=== PATIENT | male | born 1950 | race Asian ===

== ENCOUNTER 2018-04-24 11:09 | Emergency (ER) | payer MEDICAID ==
[~2018-04-24] VITALS: Ht 170.2 cm; Wt 90.7 kg
[2018-04-24] MEDS ORDERED: IPRATRPIUM/ALBUTEROL 0.5/2.5MG 3 ML NEBU. ONE (12:35)
[2018-04-24] MEDS ORDERED: predniSONE 10 MG TABLET PO ONE (12:45)
[2018-04-24] MEDS ORDERED: IPRATRPIUM/ALBUTEROL 0.5/2.5MG 3 ML NEBU. NEB ONE (12:45)
[2018-04-24] MEDS ORDERED: ALBUTEROL SULFATE 2.5 MG/3 ML NEBU. CONT NEB ONE (12:45)
[2018-04-24 13:11] VITALS: BP 139/85
--- NOTE | 2018-04-24 13:15 | RAD ---
EXAM: Chest, 2 views. HISTORY: Shortness of air. COMPARISON: None. FINDINGS: Frontal and lateral views of the chest are obtained. There is no infiltrate, pleural effusion or pneumothorax. The heart is normal in size. There are slightly decreased lung volumes with associated basilar atelectasis. IMPRESSION: No acute pulmonary finding. Electronically signed by: Monserrat Angulo MD (04/24/2018 1:10 PM) [facility]
[2018-04-24] MEDS ORDERED: IV NORMAL SALINE 1000ML BAG 1,000 ML IV ONE (13:30)
--- NOTE | 2018-04-24 15:02 | EKG ---
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
[2018-04-24] MEDS ORDERED: AZIT250T PO (15:12)
[2018-04-24] MEDS ORDERED: PRED50TA PO (15:12)
[2018-04-24] MEDS ORDERED: PROAIR HFA8.5 GM INH (15:12)
--- NOTE | 2018-04-24 15:14 | PHYS DOC ---
Past Medical History Past Medical History: Asthma, Hypertension Past Surgical History: No Surgical History Alcohol Use: None Drug Use: None Adult General Chief Complaint Chief Complaint: SHORTNESS OF BREATH HPI HPI Patient is a 67 year old [f__sex] who presents with [] Review of Systems Review of Systems Constitutional: Denies fever or chills [] Eyes: Denies change in visual acuity, redness, or eye pain [] HENT: Denies nasal congestion or sore throat [] Respiratory: Denies cough or shortness of breath [] Cardiovascular: No additional information not addressed in HPI [] GI: Denies abdominal pain, nausea, vomiting, bloody stools or diarrhea [] : Denies dysuria or hematuria [] Musculoskeletal: Denies back pain or joint pain [] Integument: Denies rash or skin lesions [] Neurologic: Denies headache, focal weakness or sensory changes [] Endocrine: Denies polyuria or polydipsia [] All other systems were reviewed and found to be within normal limits, except as documented in this note. Current Medications Current Medications Current Medications Medications (Trade) Dose Ordered Sig/Bella Start Time Stop Time Status Last Admin Dose Admin Albuterol Sulfate (Ventolin Neb Soln) 10 mg 1X ONCE 04/24/18 12:45 04/24/18 12:46 DC 04/24/18 12:51 10 MG Albuterol/ Ipratropium (Duoneb) 3 ml STK-MED ONCE 04/24/18 12:35 04/24/18 12:36 DC Ceftriaxone Sodium 50 ml @ 100 mls/hr 1X ONCE 04/24/18 13:30 04/24/18 13:59 DC 04/24/18 13:45 100 MLS/HR Prednisone (Prednisone) 50 mg 1X ONCE 04/24/18 12:45 04/24/18 12:46 DC 04/24/18 12:41 50 MG Sodium Chloride 1,000 ml @ 1,000 mls/hr 1X ONCE 04/24/18 13:30 04/24/18 14:29 DC 04/24/18 13:46 1,000 MLS/HR Allergies Allergies Allergies Coded Allergies Type Severity Reaction Last Updated Verified Iodinated Contrast- Oral and IV Dye Allergy Intermediate 04/24/18 Yes Physical Exam Physical Exam Constitutional: Well developed, well nourished, no acute distress, non-toxic appearance. [] HENT: Normocephalic, atraumatic, bilateral external ears normal, oropharynx moist, no oral exudates, nose normal. [] Eyes: PERRLA, EOMI, conjunctiva normal, no discharge. [] Neck: Normal range of motion, no tenderness, supple, no stridor. [] Cardiovascular:Heart rate regular rhythm, no murmur [] Lungs & Thorax: Bilateral breath sounds clear to auscultation [] Abdomen: Bowel sounds normal, soft, no tenderness, no masses, no pulsatile masses. [] Skin: Warm, dry, no erythema, no rash. [] Back: No tenderness, no CVA tenderness. [] Extremities: No tenderness, no cyanosis, no clubbing, ROM intact, no edema. [] Neurologic: Alert and oriented X 3, normal motor function, normal sensory function, no focal deficits noted. [] Psychologic: Affect normal, judgement normal, mood normal. [] Current Patient Data Vital Signs Vital Signs Date Time Temp Pulse Resp B/P (MAP) Pulse Ox O2 Delivery O2 Flow Rate FiO2 04/24/18 12:53 Room Air 04/24/18 12:39 97 04/24/18 12:10 98.1 80 22 115/81 (92) 98.1 EKG EKG [] Radiology/Procedures Radiology/Procedures [] Course & Med Decision Making Course & Med Decision Making Pertinent Labs and Imaging studies reviewed. (See chart for details) [] Dragon Disclaimer Dragon Disclaimer This electronic medical record was generated, in whole or in part, using a voice recognition dictation system. Departure Departure Impression: Primary Impression: Pneumonia Additional Impression: Wheezing Disposition: 01 HOME, SELF-CARE Condition: STABLE Referrals: NO PCP (PCP) Patient Instructions: Pneumonia, Adult Additional Instructions: Take the medication as directed. Follow-up with your primary care provider for recheck in 3 days. If worsening return to the emergency department immediately or call 911. Scripts Albuterol Sulfate (PROAIR HFA INHALER) 8.5 Gm Hfa.aer.ad 1 PUFF INH PRN Q6HRS PRN for SHORTNESS OF BREATH, #1 INHALER 0 Refills Prov: NADINE CAMERON [employer] 04/24/18 Azithromycin (ZITHROMAX) 250 Mg Tablet 1 PKG PO UD, #1 PKG Prov: NADINE CAMERON APRN 04/24/18 Prednisone (PREDNISONE) 50 Mg Tablet 1 TAB PO DAILY, #5 TAB Prov: NADINE CAMERON APRN 04/24/18 Problem Qualifiers NADINE CAMERON APRN Apr 24, 2018 15:14
== END 2018-04-24 15:28 | disposition home or self-care (01) ==
LOC: ER 11:09
DX: J18.9 Pneumonia, unspecified organism (principal); R06.2 Wheezing; J45.909 Unspecified asthma, uncomplicated; I10 Essential (primary) hypertension; Z91.041 Radiographic dye allergy status
CPT/HCPCS: 71046; 93005; 94644; 96374; 99285; J0690; J7030; J7512; J7613; J7620; 94640

== ENCOUNTER 2018-04-30 18:05 | Emergency (ER) | payer MEDICAID ==
[~2018-04-30] VITALS: Ht 170.2 cm; Wt 90.7 kg
[~2018-04-30 18:05] MED LIST: AZIT250T PO; PRED50TA PO; PROAIR HFA8.5 GM INH
[2018-04-30] MEDS ORDERED: IPRATRPIUM/ALBUTEROL 0.5/2.5MG 3 ML NEBU. NEB ONE (18:30)
[2018-04-30] MEDS ORDERED: predniSONE 20 MG TABLET PO ONE (18:30)
--- NOTE | 2018-04-30 18:38 | PHYS DOC ---
Past Medical History Past Medical History: Asthma, Hypertension Past Surgical History: No Surgical History Alcohol Use: None Drug Use: None Adult General Chief Complaint Chief Complaint: SHORTNESS OF BREATH HPI HPI Patient is a 67 year old male who presents with dyspnea. The patient is known to have asthma. He presents to the ER today complaining of asthma attack and exacerbation. He has had been having worsening symptoms over the last 2-3 days. He has been using inhalers at home but has not had relief of his symptoms. He denies fever O he has had a chills and some mild generalized headaches. He does endorse a productive cough of green sputum over the same time. Review of Systems Review of Systems Constitutional: Denies fever Eyes: Denies change in visual acuity HENT: Denies nasal congestion or sore throat Respiratory: as documented above Cardiovascular: No additional information not addressed in HPI GI: Denies abdominal pain, nausea, vomiting : Denies dysuria or hematuria Musculoskeletal: Denies back pain Integument: Denies rash or skin lesions Neurologic: Denies headache, focal weakness Endocrine: Denies polyuria All other systems were reviewed and found to be within normal limits, except as documented in this note. Current Medications Current Medications Current Medications Medications (Trade) Dose Ordered Sig/Bella Start Time Stop Time Status Last Admin Dose Admin Albuterol Sulfate (Ventolin Neb Soln) 10 mg 1X ONCE 04/30/18 19:15 04/30/18 19:16 DC 04/30/18 19:24 10 MG Albuterol/ Ipratropium (Duoneb) 3 ml 1X ONCE 04/30/18 18:30 04/30/18 18:31 DC 04/30/18 18:37 3 ML Azithromycin (Zithromax) 500 mg 1X ONCE 04/30/18 21:00 04/30/18 21:01 DC 04/30/18 20:57 500 MG Prednisone (Prednisone) 60 mg 1X ONCE 04/30/18 18:30 04/30/18 18:31 DC 04/30/18 18:37 60 MG Allergies Allergies Allergies Coded Allergies Type Severity Reaction Last Updated Verified Iodinated Contrast- Oral and IV Dye Allergy Intermediate 04/24/18 Yes Physical Exam Physical Exam Constitutional: Well developed, well nourished, no acute distress, non-toxic appearance HENT: Normocephalic, atraumatic, bilateral external ears normal, oropharynx moist Eyes: PERRLA, EOMI, conjunctiva normal Neck: Normal range of motion, no tenderness Cardiovascular:Heart rate regular rhythm, no murmur Lungs & Thorax: wheezes bilaterally in all avery. no increase work of breathing. mildly prolonged expiratory phase Abdomen: Bowel sounds normal, soft, no tenderness Skin: Warm, dry, no erythema, no rash. Back: No tenderness Extremities: No tenderness, no edema Neurologic: Alert and oriented X 3 Psychologic: Affect normal Current Patient Data Vital Signs Vital Signs Date Time Temp Pulse Resp B/P (MAP) Pulse Ox O2 Delivery O2 Flow Rate FiO2 04/30/18 20:15 71 126/79 (95) 98 Room Air 04/30/18 18:23 97.8 22 97.8 EKG EKG [] Radiology/Procedures Radiology/Procedures No acute findings seen on CXR Course & Med Decision Making Course & Med Decision Making Pertinent Labs and Imaging studies reviewed. (See chart for details) 18:10: Patient is seen and examined. Overall well-appearing. Tx of asthma is ordered. 19:15: Continued wheezes but improved from admission. Hour-long albuterol nebulized treatment ordered. 20:45: Patient is now status post albuterol nebulized treatment for 1 hour. He is feeling much improved. His lungs are clear and he has good air movement. No increased work of breathing. Given that this is his second ER visit, and his subjective history that seems suspicious for pneumonia, the patient is given azithromycin in the ER. He will be discharged home on the same. He will be on prednisone as well for the next 5 days. He is also provided refills of his baseline blood pressure medications. Patient is new to the area and has not established a PCP yet. HCTZ 25. Losartan 100/HCTZ 12.5. Norvasc 10. 90-day supply is prescribed. Dragon Disclaimer Dragon Disclaimer This electronic medical record was generated, in whole or in part, using a voice recognition dictation system. Departure Departure Referrals: NO PCP (PCP) Scripts Losartan/Hydrochlorothiazide (LOSARTAN-HCTZ 100-12.5 MG TAB) 1 Each Tablet 1 TAB PO DAILY, #90 TAB 0 Refills Prov: WESTLEY RAMIREZ DO 04/30/18 Amlodipine Besylate (AMLODIPINE BESYLATE) 10 Mg Tablet 10 MG PO DAILY, #90 TAB Prov: WESTLEY RAMIREZ DO 04/30/18 Hydrochlorothiazide (HYDROCHLOROTHIAZIDE TABLET ) 25 Mg Tablet 1 TAB PO DAILY, #90 TAB 0 Refills Prov: WESTLEY RAMIREZ DO 04/30/18 Azithromycin (AZITHROMYCIN TABLET) 250 Mg Tablet 250 MG PO DAILY for ANTI-BIOTIC, #4 TAB 0 Refills Prov: WESTLEY RAMIREZ DO 04/30/18 Prednisone (PREDNISONE) 50 Mg Tablet 1 TAB PO DAILY, #5 TAB Prov: WESTLEY RAMIREZ DO 04/30/18 WESTLEY RAMIREZ DO Apr 30, 2018 18:38
[2018-04-30] MEDS ORDERED: ALBUTEROL SULFATE 2.5 MG/3 ML NEBU. CONT NEB ONE (19:15)
[2018-04-30 20:15] VITALS: BP 126/79
[2018-04-30] MEDS ORDERED: AZIT250T6 PO (20:53)
[2018-04-30] MEDS ORDERED: AMLO10TA2 PO (20:53)
[2018-04-30] MEDS ORDERED: PRED50TA PO (20:53)
[2018-04-30] MEDS ORDERED: HYDR25TA9 PO (20:53)
[2018-04-30] MEDS ORDERED: LOSA1TAB25 PO (20:53)
[2018-04-30] MEDS ORDERED: AZITHROMYCIN 250 MG TABLET. PO ONE (21:00)
--- NOTE | 2018-04-30 22:11 | RAD ---
PORTABLE CHEST 1V Clinical History: Dyspnea, Cough productive of green sputum Technique: AP view of the chest was obtained at 04/30/2018 6:17 PM. Comparison: April 24, 2018. Findings: The heart is borderline enlarged. The pulmonary vasculature is normal. There is patchy opacity in the left lung base. Impression: Left basal infiltrate likely pneumonia. Electronically signed by: Avi Flynn III, MD (04/30/2018 10:08 PM) [facility]
== END 2018-04-30 21:02 | disposition home or self-care (01) ==
LOC: ER 18:05
DX: J45.901 Unspecified asthma with (acute) exacerbation (principal); I10 Essential (primary) hypertension; Z91.041 Radiographic dye allergy status
CPT/HCPCS: 71045; 94644; 99285; J7512; J7613; J7620; Q0144; 94640

== ENCOUNTER 2018-05-20 01:31 | Emergency (ER) | payer MEDICAID ==
[~2018-05-20] VITALS: Ht 170.2 cm; Wt 89.4 kg
[~2018-05-20 01:31] MED LIST changes: +AMLO10TA6 PO; +AZIT250T6 PO; +HYDR25TA9 PO; +LOSA1TAB25 PO
[2018-05-20 02:11] LABS: BILIRUBIN,URINE NEGATIVE (NEG); CLARITY,URINE CLEAR; COLOR,URINE ORANGE; PH,URINE 6.5; PROTEIN,URINE NEGATIVE (NEG-TRACE); UROBILINOGEN,URINE 0.2 mg/dL (0.2 mg/dL)
[2018-05-20 02:25] LABS: BACTERIA,URINE 0 /HPF (0-FEW); NITRITE,URINE NEGATIVE (NEG); RBC,URINE 0 /HPF (0-2); SQUAMOUS EPITHELIAL CELL,UR OCC /LPF; WBC,URINE 0 /HPF (0-4)
[2018-05-20] MEDS ORDERED: ASPIRIN 325 MG TABLET PO ONE (03:30)
[2018-05-20] MEDS ORDERED: DEXAMETHASONE SOD PHOS 20 MG/5 ML VIAL. IV ONE (03:30)
[2018-05-20] MEDS ORDERED: IV NORMAL SALINE 1000ML BAG 1,000 ML IV ONE (03:30)
[2018-05-20] MEDS ORDERED: IPRATRPIUM/ALBUTEROL 0.5/2.5MG 3 ML NEBU. NEB ONE ×2 (03:30→04:30)
--- NOTE | 2018-05-20 03:31 | PHYS DOC ---
Past Medical History Past Medical History: Asthma, Hypertension, MD Past Surgical History: No Surgical History Additional Past Surgical Histo: PCI Smoking: Quit Greater Than 1 Year Alcohol Use: None Drug Use: None Adult General Chief Complaint Chief Complaint: URINARY FREQUENCY HPI HPI Patient is a 67 year old male with past medical history of MD, hypertension, and asthma who presents with a chief complaint of dysuria. Patient notes that he had acute onset dysuria and urinary frequency having to urinate every few minutes starting this afternoon. Patient denies any hematuria or urethral discharge. Patient notes he has had back and suprapubic pain since the onset of the dysuria as well. Patient also notes that he has had a cough for the last 3 or 4 days with associated midsternal chest pain. Patient notes that his chest pain has been intermittent with a moderate severity and he describes it as a "clamping pain " with radiation to the right side of his neck. Patient notes his pain is worse with coughing and breathing. Patient notes he has been short of breath especially when lying down. Patient denies diaphoresis nausea, vomiting. He has not taken anything for this cough or chest pain. Patient also notes that he has had a headache for the last 3 or 4 days with associated room spinning dizziness. Patient notes that he has had dizziness in the past and denies any different symptoms this time. Patient denies any falls recently. Review of Systems Review of Systems Constitutional: Denies fever or chills [] Eyes: Denies change in visual acuity, redness, or eye pain [] HENT: Denies nasal congestion or sore throat [] Respiratory: Notes cough and shortness of breath [] Cardiovascular: Notes chest pain, denies palpitations[] GI: Notes abdominal pain, nausea. Denies vomiting, bloody stools or diarrhea [] : Notes dysuria, denies hematuria [] Musculoskeletal: Notes back pain, denies joint pain [] Integument: Denies rash or skin lesions [] Neurologic: Notes headache Denies focal weakness or sensory changes [] Complete systems were reviewed and found to be within normal limits, except as documented in this note. Current Medications Current Medications Current Medications Medications (Trade) Dose Ordered Sig/Bella Start Time Stop Time Status Last Admin Dose Admin Albuterol/ Ipratropium (Duoneb) 3 ml 1X ONCE 05/20/18 04:30 05/20/18 04:31 DC 05/20/18 04:17 3 ML Aspirin (Yonis Aspirin) 325 mg 1X ONCE 05/20/18 03:30 05/20/18 03:31 DC 05/20/18 04:07 325 MG Dexamethasone Sodium Phosphate (Decadron) 10 mg 1X ONCE 05/20/18 03:30 05/20/18 03:31 DC 05/20/18 04:08 10 MG Sodium Chloride 1,000 ml @ 1,000 mls/hr 1X ONCE 05/20/18 03:30 05/20/18 04:29 DC 05/20/18 04:09 1,000 MLS/HR Allergies Allergies Allergies Coded Allergies Type Severity Reaction Last Updated Verified Iodinated Contrast- Oral and IV Dye Allergy Intermediate 04/24/18 Yes Physical Exam Physical Exam Constitutional: Well developed, well nourished, no acute distress, non-toxic appearance. [] HENT: Normocephalic, atraumatic, oropharynx moist, no oral exudates, nose normal. [] Eyes: PERRL, EOMI, conjunctiva normal, no discharge. [] Neck: Normal range of motion, R lateral tenderness, supple, no meningismus. [] Cardiovascular: Heart rate regular rhythm, no murmur [] Lungs & Thorax: Bilateral diffuse wheezes, decreased air movement.[] Abdomen: Soft, nondistended RLQ, LLQ, and suprapubic tenderness to palpation. [ ] Skin: Warm, dry, no erythema, no rash. [] Back: Bilateral CVA tenderness worse on the left. Full ROM[] Extremities: No tenderness, ROM intact, no edema. [] Neurologic: Alert and oriented X 3, normal motor function, normal sensory function, no focal deficits noted. [] Psychologic: Affect normal, judgement normal, mood normal. [] Current Patient Data Vital Signs Vital Signs Date Time Temp Pulse Resp B/P (MAP) Pulse Ox O2 Delivery O2 Flow Rate FiO2 05/20/18 06:15 80 20 110/70 (83) 97 Room Air 05/20/18 01:55 97.7 97.7 Lab Values Laboratory Tests Test 05/20/18 01:53 05/20/18 04:00 Urine Collection Type Unknown Urine Color [place] Urine Clarity Clear Urine pH 6.5 Urine Specific [place] <=1.005 Urine Protein Negative mg/dL (NEG-TRACE) Urine Glucose (UA) Negative mg/dL (NEG) Urine Ketones (Stick) Negative mg/dL (NEG) Urine Blood Negative (NEG) Urine Nitrite Negative (NEG) Urine Bilirubin Negative (NEG) Urine Urobilinogen Dipstick 0.2 mg/dL (0.2 mg/dL) Urine Leukocyte Esterase Negative (NEG) Urine RBC 0 /HPF (0-2) Urine WBC 0 /HPF (0-4) Urine Squamous Epithelial Cells Occ /LPF Urine Bacteria 0 /HPF (0-FEW) White Blood Count 7.1 x10^3/uL (4.0-11.0) Red Blood Count 5.87 x10^6/uL (4.30-5.70) H Hemoglobin 16.2 g/dL (13.0-17.5) Hematocrit 46.5 % (39.0-53.0) Mean Corpuscular Volume 79 fL (79-100) Mean Corpuscular Hemoglobin 28 pg (25-35) Mean Corpuscular Hemoglobin Concent 35 g/dL (31-37) Red Cell Distribution Width 14.9 % (11.5-14.5) H Platelet Count 191 x10^3/uL (140-400) Neutrophils (%) (Auto) 58 % (31-73) Lymphocytes (%) (Auto) 24 % (24-48) Monocytes (%) (Auto) 10 % (0-9) H Eosinophils (%) (Auto) 7 % (0-3) H Basophils (%) (Auto) 1 % (0-3) Neutrophils # (Auto) 4.1 x10^3uL (1.8-7.7) Lymphocytes # (Auto) 1.7 x10^3/uL (1.0-4.8) Monocytes # (Auto) 0.7 x10^3/uL (0.0-1.1) Eosinophils # (Auto) 0.5 x10^3/uL (0.0-0.7) Basophils # (Auto) 0.0 x10^3/uL (0.0-0.2) Prothrombin Time 13.2 SEC (11.7-14.0) Prothrombin Time INR 1.1 (0.8-1.1) Sodium Level 137 mmol/L (136-145) Potassium Level 3.2 mmol/L (3.5-5.1) L Chloride Level 98 mmol/L (98-107) Carbon Dioxide Level 30 mmol/L (21-32) Anion Gap 9 (6-14) Blood Urea Nitrogen 10 mg/dL (8-26) Creatinine 1.2 mg/dL (0.7-1.3) Estimated GFR (Cockcroft-Gault) 60.4 BUN/Creatinine Ratio 8 (6-20) Glucose Level 115 mg/dL (70-99) H Lactic Acid Level 0.9 mmol/L (0.4-2.0) Calcium Level 9.8 mg/dL (8.5-10.1) Magnesium Level 2.0 mg/dL (1.8-2.4) Total Bilirubin 2.2 mg/dL (0.2-1.0) H Aspartate Amino Transferase (AST) 20 U/L (15-37) Alanine Aminotransferase (ALT) 46 U/L (16-63) Alkaline Phosphatase 104 U/L (46-116) Creatine Kinase 151 U/L (39-308) Creatine Kinase MB (Mass) 1.6 ng/mL (0.0-3.6) Creatine Kinase MB Relative Index 1.1 % (0-4) Troponin I Quantitative < 0.017 ng/mL (0.000-0.055) AW-Zhc-[id number]-Type Natriuretic Peptide 29 pg/mL (0-124) Total Protein 7.4 g/dL (6.4-8.2) Albumin 4.0 g/dL (3.4-5.0) Albumin/Globulin Ratio 1.2 (1.0-1.7) Lipase 101 U/L (73-393) Laboratory Tests 05/20/18 04:00 Laboratory Tests 05/20/18 04:00 EKG EKG Sinus rhythm, rate 87, leftward axis, QRS 94 ms, QTc 458. No acute ischemic changes, T wave inversions in lead III, aVF[] Interpretation Time: 0350 Radiology/Procedures Radiology/Procedures PROCEDURE: CT HEAD WO CONTRAST INDICATION: dizziness COMPARISON: None. TECHNIQUE: Axial CT images obtained through the head without intravenous contrast. One or more of the following individualized dose reduction techniques were utilized for this examination: 1. Automated exposure control; 2. Adjustment of the mA and/or kV according to patient size; 3. Use of iterative reconstruction technique. FINDINGS: No intracranial hemorrhage. No midline shift. Basal cisterns patent. Ventricles and sulci are unremarkable. No acute osseous abnormality. Orbits and paranasal sinuses unremarkable. IMPRESSION: 1. No acute intracranial hemorrhage. Electronically signed by: Edmundo Graff MD (05/20/2018 4:14 AM) [place] [id number] PROCEDURE: CT CHEST ABDOMEN PELVIS WO INDICATION: cough, wheezing, flank pain COMPARISON: None. TECHNIQUE: Axial CT images obtained through the chest, abdomen and pelvis without contrast. Limited assessment of solid organ structures and vasculature secondary to lack of intravenous contrast. One or more of the following individualized dose reduction techniques were utilized for this examination: 1. Automated exposure control; 2. Adjustment of the mA and/or kV according to patient size; 3. Use of iterative reconstruction technique. FINDINGS: Chest: No evidence of pneumothorax. Mild dependent atelectasis. Cannot evaluate the lumen of the thoracic aorta secondary to no contrast. There is some calcific atherosclerosis. Ascending thoracic aorta is dilated up to 46 mm. Degenerative changes of the spine. Chronic sternal defect. Abdomen and pelvis: Abdominal aorta is not aneurysmal. There is some scattered plaque. Bilateral fat-containing small inguinal hernia suspected. There are some mildly prominent lymph nodes in the right greater than left groin. No intrahepatic bile duct dilation. No peripancreatic fluid collection. Suspected duodenal diverticulum. Spleen unremarkable. Urinary bladder is distended. No hydronephrosis. No definite periappendiceal inflammation. Degenerative changes of spine with multilevel central canal and neural foraminal stenosis. IMPRESSION: 1. The urinary bladder is dilated at the time of exam. This could be from the patient not urinating recently but would correlate to ensure that this is not secondary to a bladder outlet obstruction. 2. Aneurysmal dilatation of the ascending thoracic aorta. 3. 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 Course & Med Decision Making Course & Med Decision Making Pertinent Labs and Imaging studies reviewed. (See chart for details) Patient presents with multiple complaints including increased wheezing/chest discomfort/shortness of breath, abdominal/flank pain, and headache. Patient with significant wheezing on auscultation. EKG stable. Troponin WNL. CT chest without acute process. Patient's symptoms most likely secondary to asthma exacerbation as a significantly improved after DuoNeb's and steroid. Patient also with abdominal/flank pain. Labs appears WNL. UA without signs of infection. CT abd/pelvis with significantly distended bladder which was post void. Urinary cath placed with interval improvement of symptoms. RN reports approx 1 liter of urine retained. CT also with incidental aneurysmal dilatation noted. Lastly, patient also with complaint of headache. CT head without acute process. Symptomatic treatment provided during ED stay with interval improvement of symptoms. Patient stable for discharge with outpatient follow-up with PCP and urologist. Urology referral provided. Discussed findings and plan with patient and family, who acknowledge understanding and agreement. Dragon Disclaimer Dragon Disclaimer This electronic medical record was generated, in whole or in part, using a voice recognition dictation system. Departure Departure Impression: Primary Impression: Urinary retention Additional Impressions: Asthma exacerbation Headache Disposition: HOME, SELF-CARE Condition: IMPROVED Referrals: NO PCP (PCP) CARLYN LEE MD Patient Instructions: Asthma, Adult, [id number], Kat Catheter Care, Adult, Urinary Retention, Acute, Male, [id number] Scripts Prednisone (PREDNISONE) 20 Mg Tablet 2 TAB PO DAILY, #8 TAB Prov: KENNY IVAN DO 05/20/18 Tamsulosin Hcl (FLOMAX) 0.4 Mg Cap.er.24h 1 CAP PO DAILY, #3020 CAP 0 Refills Prov: KENNY IVAN DO 05/20/18 Problem Qualifiers Additional Impressions: Asthma exacerbation Asthma severity: mild Asthma persistence: unspecified Qualified Codes: J45.901 - Unspecified asthma with (acute) exacerbation Headache Headache type: unspecified Headache chronicity pattern: unspecified pattern Intractability: not intractable Qualified Codes: R51 - Headache KENNY IVAN DO May 20, 2018 03:31
--- NOTE | 2018-05-20 04:18 | RAD ---
INDICATION: dizziness COMPARISON: None. TECHNIQUE: Axial CT images obtained through the head without intravenous contrast. One or more of the following individualized dose reduction techniques were utilized for this examination: 1. Automated exposure control; 2. Adjustment of the mA and/or kV according to patient size; 3. Use of iterative reconstruction technique. FINDINGS: No intracranial hemorrhage. No midline shift. Basal cisterns patent. Ventricles and sulci are unremarkable. No acute osseous abnormality. Orbits and paranasal sinuses unremarkable. IMPRESSION: 1. No acute intracranial hemorrhage. Electronically signed by: Edmundo Graff MD (05/20/2018 4:14 AM) [facility]
[2018-05-20 04:23] LABS: BASO % 1 % (0-3); EOS # 0.5 x10^3/uL (0.0-0.7); EOS % 7 % (0-3); HEMATOCRIT 46.5 % (39.0-53.0); HEMOGLOBIN 16.2 g/dL (13.0-17.5); LYMPH # 1.7 x10^3/uL (1.0-4.8); LYMPH % 24 % (24-48); MEAN CORPUSCULAR HEMOGLOBIN 28 pg (25-35); MEAN CORPUSCULAR HGB CONC 35 g/dL (31-37); MEAN CORPUSCULAR VOLUME 79 fL (79-100); MONO # 0.7 x10^3/uL (0.0-1.1); MONO % 10 % (0-9); NEUT # 4.1 x10^3uL (1.8-7.7); NEUT % 58 % (31-73); PLATELET COUNT 191 x10^3/uL (140-400); PROTHROMBIN TIME PATIENT 13.2 SEC (11.7-14.0); RED BLOOD COUNT 5.87 x10^6/uL (4.30-5.70); RED CELL DISTRIBUTION WIDTH 14.9 % (11.5-14.5); WHITE BLOOD COUNT 7.1 x10^3/uL (4.0-11.0)
[2018-05-20 04:27] LABS: CALCIUM 9.8 mg/dL (8.5-10.1); CREATININE 1.2 mg/dL (0.7-1.3); GFR 60.4; POTASSIUM 3.2 mmol/L (3.5-5.1)
[2018-05-20 04:32] LABS: ALBUMIN/GLOBULIN RATIO 1.2 (1.0-1.7); TOTAL BILIRUBIN 2.2 mg/dL (0.2-1.0); TOTAL PROTEIN 7.4 g/dL (6.4-8.2)
--- NOTE | 2018-05-20 04:41 | RAD ---
INDICATION: cough, wheezing, flank pain COMPARISON: None. TECHNIQUE: Axial CT images obtained through the chest, abdomen and pelvis without contrast. Limited assessment of solid organ structures and vasculature secondary to lack of intravenous contrast. One or more of the following individualized dose reduction techniques were utilized for this examination: 1. Automated exposure control; 2. Adjustment of the mA and/or kV according to patient size; 3. Use of iterative reconstruction technique. FINDINGS: Chest: No evidence of pneumothorax. Mild dependent atelectasis. Cannot evaluate the lumen of the thoracic aorta secondary to no contrast. There is some calcific atherosclerosis. Ascending thoracic aorta is dilated up to 46 mm. Degenerative changes of the spine. Chronic sternal defect. Abdomen and pelvis: Abdominal aorta is not aneurysmal. There is some scattered plaque. Bilateral fat-containing small inguinal hernia suspected. There are some mildly prominent lymph nodes in the right greater than left groin. No intrahepatic bile duct dilation. No peripancreatic fluid collection. Suspected duodenal diverticulum. Spleen unremarkable. Urinary bladder is distended. No hydronephrosis. No definite periappendiceal inflammation. Degenerative changes of spine with multilevel central canal and neural foraminal stenosis. IMPRESSION: 1. The urinary bladder is dilated at the time of exam. This could be from the patient not urinating recently but would correlate to ensure that this is not secondary to a bladder outlet obstruction. 2. Aneurysmal dilatation of the ascending thoracic aorta. 3. 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
[2018-05-20] MEDS ORDERED: PRED20TA PO (05:28)
[2018-05-20] MEDS ORDERED: TAMS0.4C97 PO (05:28)
[2018-05-20 06:15] VITALS: BP 110/70
--- NOTE | 2018-05-20 07:19 | EKG ---
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
== END 2018-05-20 06:51 | disposition home or self-care (01) ==
LOC: ER 01:31
DX: R33.9 Retention of urine, unspecified (principal); J45.901 Unspecified asthma with (acute) exacerbation; I10 Essential (primary) hypertension; I25.2 Old myocardial infarction; Z87.891 Personal history of nicotine dependence; Z91.041 Radiographic dye allergy status
CPT/HCPCS: 36415; 51702; 70450; 71250; 74176; 80053; 81001; 82553; 83605; 83690; 83735; 83880; 84484; 85025; 85610; 93005; 94640; 96361; 96374; 99285; J1100; J7030; J7620

== ENCOUNTER 2018-05-25 10:06 | Emergency (ER) | payer MEDICAID ==
[~2018-05-25] VITALS: Ht 170.2 cm; Wt 87.5 kg
[~2018-05-25 10:06] MED LIST changes: +PRED20TA PO; +TAMS0.4C97 PO
[2018-05-25 10:33] VITALS: BP 122/81
--- NOTE | 2018-05-25 10:49 | PHYS DOC ---
Past Medical History Past Medical History: Asthma, Hypertension, [place] Past Surgical History: No Surgical History Additional Past Surgical Histo: PCI Alcohol Use: None Drug Use: None Adult General Chief Complaint Chief Complaint: CATHETER CHANGE [facility] HPI Patient is a 67 year old male with history of hypertension, asthma, [place], who presents today asking if we can remove his Otoole catheter. Patient states the Otoole catheter was placed 5 days ago for urinary retention. He states they've followed up with his PCP who requested them to see a urologist but never gave him a contact number. Patient denies any other symptoms. Review of Systems Review of Systems Constitutional: Denies fever or chills [] Eyes: Denies change in visual acuity, redness, or eye pain [] HENT: Denies nasal congestion or sore throat [] Respiratory: Denies cough or shortness of breath [] Cardiovascular: No additional information not addressed in HPI [] GI: Denies abdominal pain, nausea, vomiting, bloody stools or diarrhea [] : Request for Otoole removal. Denies dysuria or hematuria [] Musculoskeletal: Denies back pain or joint pain [] Integument: Denies rash or skin lesions [] Neurologic: Denies headache, focal weakness or sensory changes [] All other systems were reviewed and found to be within normal limits, except as documented in this note. Allergies Allergies Allergies Coded Allergies Type Severity Reaction Last Updated Verified Iodinated Contrast- Oral and IV Dye Allergy Intermediate 04/24/18 Yes Physical Exam Physical Exam Constitutional: Well developed, well nourished, no acute distress, non-toxic appearance. [] HENT: Normocephalic, atraumatic, bilateral external ears normal, oropharynx moist, no oral exudates, nose normal. [] Eyes: PERRLA, EOMI, conjunctiva normal, no discharge. [] Neck: Normal range of motion, no tenderness, supple, no stridor. [] Cardiovascular:Heart rate regular rhythm, no murmur [] Lungs & Thorax: Bilateral breath sounds clear to auscultation [] Abdomen: Bowel sounds normal, soft, no tenderness, no masses, no pulsatile masses. [] Male -otoole in place with leg bag with clear urine. Skin: Warm, dry, no erythema, no rash. [] Back: No tenderness, no CVA tenderness. [] Extremities: No tenderness, no cyanosis, no clubbing, ROM intact, no edema. [] Neurologic: Alert and oriented X 3, normal motor function, normal sensory function, no focal deficits noted. [] Psychologic: Affect normal, judgement normal, mood normal. [] EKG EKG [] Radiology/Procedures Radiology/Procedures [] Course & Med Decision Making Course & Med Decision Making Pertinent Labs and Imaging studies reviewed. (See chart for details) This is a 67-year-old male patient presenting to the ED today requesting his Otoole catheter to be removed, he had the Otoole placed in 5 days ago for urinary retention. Patient was seen by the PCP today, was instructed to follow-up with a urologist provided but he was not provided contact information. Spoke to patient and family. Provided them a urologist contact number, requested them to follow-up with the urologist as soon as he can. He is already on Flomax. He has no other complaints. Dragon Disclaimer Dragon Disclaimer This electronic medical record was generated, in whole or in part, using a voice recognition dictation system. Departure Departure Impression: Primary Impression: Urinary retention Disposition: 01 HOME, SELF-CARE Condition: STABLE Referrals: NO PCP (PCP) CARLYN LEE MD Call his office today and set up a follow up appointment. Patient Instructions: Otoole Catheter Care, Adult, Urinary Retention, Acute, Male Additional Instructions: You were evaluated in the emergency room. We request you contact the provided urologist today and set up a follow-up appointment as an outpatient and they will decide if to remove the Otoole catheter DADA QUIGLEY APRN May 25, 2018 10:49
== END 2018-05-25 10:56 | disposition home or self-care (01) ==
LOC: ER 10:06
DX: R33.9 Retention of urine, unspecified (principal); J45.909 Unspecified asthma, uncomplicated; I10 Essential (primary) hypertension; Z91.041 Radiographic dye allergy status
CPT/HCPCS: 99281

== ENCOUNTER → 2018-06-13 | Outpatient (CLI) | payer OTHER ==
[2018-05-25 10:33] VITALS: BP 122/81
--- NOTE | 2018-06-13 15:34 | RAD ---
Chest, 2 views, 06/13/2018: HISTORY: Chest pain Comparison is made to a study from 04/30/2018. The heart size and pulmonary vascularity are normal. No pulmonary infiltrate is seen. There is no evidence of pleural fluid. IMPRESSION: No acute cardiopulmonary abnormality is detected. Electronically signed by: Arik Blela MD (06/13/2018 3:31 PM) [facility]
== END | disposition home or self-care (01) ==
LOC: RAD 10:48
PROVIDERS: ATTEND Internal Medicine Cardiovascular Disease
DX: R07.9 Chest pain, unspecified (principal)
CPT/HCPCS: 71046

== ENCOUNTER → 2018-06-30 | Outpatient (CLI) | payer MEDICAID, OTHER ==
--- NOTE | 2018-06-30 10:24 | CARD ---
MR#: [id number] Date of Study: 06/30/2018 Ordering Physician: GRACIELA KEARNS, Referring Physician: GRACIELA KEARNS, Tech: Sophie Kruger RDCS APPROVED REPORT EXAM: Two-dimensional and M-mode echocardiogram with Doppler and color Doppler. Other Information Quality : Good INDICATION Murmur 2D DIMENSIONS RVDd3.5 (2.9-3.5cm)Left Atrium(2D)3.5 (1.6-4.0cm) IVSd1.1 (0.7-1.1cm)Aortic Root(2D)3.5 (2.0-3.7cm) LVDd4.5 (3.9-5.9cm)LVOT Diameter2.6 (1.8-2.4cm) PWd1.1 (0.7-1.1cm)LVDs2.7 (2.5-4.0cm) FS (%) 39.3 %SV65.4 ml LVEF(%)60.0 (>50%) Aortic Valve AoV Peak Nitin.110.8cm/sAoV VTI20.3cm AO Peak GR.4.9mmHgLVOT Peak Nitin.98.6cm/s LVOT VTI 17.79cmAO Mean GR.2mmHg JODI (VMAX)4.35ks8SIW (VTI)4.71cm2 AI P 1/2 Jzkx1346xg Mitral Valve MV E Htgyulsc16.1cm/sMV DECEL DPSP960ct MV A Rylyvopz67.3cm/sMV CDI37bc E/A Ratio0.6MVA (PHT)2.89cm2 TDI E/Lateral E'17.6E/Medial E'20.4 Tricuspid Valve TR P. Yfvxausr130xg/sRAP TPVLZNWY3vxFa TR Peak Gr.46hxCsPNEH33huGd Pulmonary Vein S1 Ehibryal40.8cm/sD2 Lcfzvsnl65.3cm/s LEFT VENTRICLE The left ventricle is normal size. There is normal left ventricular wall thickness. The left ventricu lar systolic function is normal and the ejection fraction is within normal range. The Ejection Fracti on is 55-60%. There is normal LV segmental wall motion. Transmitral Doppler flow pattern is Grade I-a bnormal relaxation pattern. RIGHT VENTRICLE The right ventricle is normal size. The right ventricular systolic function is normal. ATRIA The left atrium size is normal. The right atrium size is normal. The interatrial septum is intact wit h no evidence for an atrial septal defect or patent foramen ovale as noted on 2-D or Doppler imaging. AORTIC VALVE The aortic valve is calcified but opens well. Doppler and Color Flow revealed mild aortic regurgitati on. There is no significant aortic valvular stenosis. MITRAL VALVE The mitral valve is calcified but opens well. There is no evidence of mitral valve prolapse. There is no mitral valve stenosis. Doppler and Color-flow revealed trace mitral regurgitation. TRICUSPID VALVE The tricuspid valve is normal in structure and function. The PA pressure was estimated at 22 mmHg. Do ppler and Color Flow revealed trace tricuspid regurgitation. There is no tricuspid valve stenosis. PULMONIC VALVE The pulmonic valve is not well visualized. Doppler and Color Flow revealed trace pulmonic valvular re gurgitation. There is no pulmonic valvular stenosis. GREAT VESSELS The aortic root is mildly at 3.5 cm. The ascending aorta is moderately dilated at 4.2 cm. The IVC is normal in size and collapses >50% with inspiration. PERICARDIAL EFFUSION There is no evidence of significant pericardial effusion. Critical Notification Critical Value: No <Conclusion> The left ventricle is normal size. The left ventricular systolic function is normal and the ejection fraction is within normal range. The Ejection Fraction is 55-60%. There is no significant aortic valvular stenosis. Doppler and Color Flow revealed mild aortic regurgitation. Doppler and Color-flow revealed trace mitral regurgitation. The PA pressure was estimated at 22 mmHg. Doppler and Color Flow revealed trace tricuspid regurgitation. The aortic root is mildly at 3.5 cm. The ascending aorta is moderately dilated at 4.2 cm. Signed by : Graciela Kearns MD Electronically Approved : 06/30/2018 10:24:04
== END | disposition home or self-care (01) ==
LOC: ECHO 09:01
PROVIDERS: ATTEND Internal Medicine Cardiovascular Disease
DX: I35.1 Nonrheumatic aortic (valve) insufficiency (principal)
CPT/HCPCS: 93306

== ENCOUNTER → 2018-07-05 | Outpatient (CLI) | payer OTHER ==
[~2018-07-05] MED LIST changes: +REGADENOSON 0.4 MG/5 ML DISP.SYRIN. IV ONE
--- NOTE | 2018-07-05 11:47 | RAD ---
MR#: [id number] Date of Study: 07/05/2018 Ordering Physician: JEFF HECTOR, Referring Physician: VINEET SCALES Tech: Arcadio Lee NMTCB, ARRT (R) (N) APPROVED REPORT Test Type: Pharmacological Stress Nurse/Tech: Shauna Jimenez RN Test Indications: CAD Cardiac History: Hypertension, [place] x2 Medications: See Electronic Medical Record Medical History: See Electronic Medical Record Resting ECG: SR Resting Heart Rate: 77 bpm Resting Blood Pressure: 103/71mmHg Pretest Chest Pain: No chest pain Nurse/Tech Notes S1,S2. Lungs are clear to auscultation. Consent: The procedure was explained to the patient in lay terms. Informed consent was witnessed. Felipe eout was entered into [employer]. History and Stress Test performed by RAFAEL Lee Pharm. Details Pharmacologic stress testing was performed using 0.4mg per 5ml of regadenoson given intravenously ove r 7-10 seconds. Stress Symptoms Dyspnea POST EXERCISE Reason for Termination: Infusion complete Target HR: No Max HR: 128 bpm Max Blood Pressure: 107/72mmHg Blood Pressure response to exercise: Normal blood pressure response during stress. Heart Rate response to exercise: WNL Chest Pain: No. Arrhythmia: No. ST Change: No. INTERPRETATION Stress EKG Conclusion: No evidence of stress induced EKG changes. Imaging Protocol IMAGE PROTOCOL: Rest Tc-99m/stress Tc-99m 1 day Rest: Stress: Viability: Radiopharm.Tc99m CqehomncdUi67g Sestamibi Dose12.5mCi 33.1mCi Duration 15min. 13min. Img Date 07/05/2018 07/05/2018 Inj-Img Blgu57cng. 60min. Rest Admin Site:IV - Right AntecubitalAdministrator:RT Yamel (R)(N) Stress Admin Site: IV - Right AntecubitalAdministrator: ADRIANE Chavez, ARRT (R)(N) STRESS DATA End Diast. Vol.78.0mlLVEDV index BSA39.0ml End Syst. Vol.34.0mlLVESV index BSA17.0ml Myocardial Gusv098.0gEject. Rpnvqumi15.0% Stress Scores Regional WT1.00Summed WT10.00 Regional WM1.00Summed WM17.00 The rest and stress images show normal perfusion, normal contraction and thickening. LV Perf. Quant 17 Seg. SSS0.00 17 Seg. SRS1.00 17 Seg. SDS0.00 Stress Defect Extent (% LAD)0.00Rest Defect Extent (% LAD)0.00Rev. Defect Extent (% LAD)0.00 Stress Defect Extent (% LCX) 0.00Rest Defect Extent (% LCX)0.00Rev. Defect Extent (% LCX)0.00 Stress Defect Extent (% RCA)0.00Rest Defect Extent (% RCA)0.00Rev. Defect Extent (% RCA)0.00 Stress Defect Extent (% COCO)0.00Rest Defect Extent (% COCO)0.00Rev. Defect Extent (% COCO)0.00 Other Information Quality:Good Risk Assessment: Low Risk Conclusion 1. No evidence of EKG changes with stress testing. 2. Normal perfusion at stress/rest. 3. Low risk study. 4. EF > 60%. Signed by : Paulo Fuentes, Electronically Approved : 07/05/2018 11:47:07
== END | disposition home or self-care (01) ==
LOC: NM 07:45
PROVIDERS: ATTEND Nurse Practitioner
DX: I25.709 Atherosclerosis of coronary artery bypass graft(s), unspecified, with unspecified angina pectoris (principal); I10 Essential (primary) hypertension; I25.2 Old myocardial infarction
CPT/HCPCS: 78452; 93017; 96374; 96375; 96376; A9500; J2785

== ENCOUNTER 2018-09-12 17:03 | Emergency (ER) | payer OTHER ==
[~2018-09-12] VITALS: Ht 175.3 cm; Wt 89.4 kg
[~2018-09-12 17:03] MED LIST changes: +ALBU2.5V8 INH; +HYDR-2145 PO; -HYDR25TA9 PO; +NAPR-514 PO; +ORPH100T PO; -PROAIR HFA8.5 GM INH; -REGADENOSON 0.4 MG/5 ML DISP.SYRIN. IV ONE
[2018-09-12] MEDS ORDERED: ALBUTEROL SULFATE 2.5 MG/3 ML NEBU. CONT NEB ONE (20:00)
[2018-09-12] MEDS ORDERED: predniSONE 10 MG TABLET PO ONE (20:00)
[2018-09-12] MEDS ORDERED: IPRATROPIUM BROMIDE 0.5 MG/2.5 ML NEBU. NEB ONE (20:00)
[2018-09-12 20:11] LABS: BASO % 0 % (0-3); EOS # 0.6 x10^3/uL (0.0-0.7); EOS % 12 % (0-3); HEMATOCRIT 42.1 % (39.0-53.0); HEMOGLOBIN 14.7 g/dL (13.0-17.5); LYMPH # 0.9 x10^3/uL (1.0-4.8); LYMPH % 17 % (24-48); MEAN CORPUSCULAR HEMOGLOBIN 28 pg (25-35); MEAN CORPUSCULAR HGB CONC 35 g/dL (31-37); MEAN CORPUSCULAR VOLUME 80 fL (79-100); MONO # 0.6 x10^3/uL (0.0-1.1); MONO % 11 % (0-9); NEUT # 3.2 x10^3uL (1.8-7.7); NEUT % 60 % (31-73); PLATELET COUNT 193 x10^3/uL (140-400); RED BLOOD COUNT 5.25 x10^6/uL (4.30-5.70); RED CELL DISTRIBUTION WIDTH 14.3 % (11.5-14.5); WHITE BLOOD COUNT 5.3 x10^3/uL (4.0-11.0)
[2018-09-12 20:12] LABS: BILIRUBIN,URINE NEGATIVE (NEG); CLARITY,URINE CLEAR; COLOR,URINE YELLOW; NITRITE,URINE NEGATIVE (NEG); PROTEIN,URINE NEGATIVE (NEG-TRACE)
[2018-09-12 20:25] LABS: BACTERIA,URINE 0 /HPF (0-FEW); RBC,URINE 0 /HPF (0-2); SQUAMOUS EPITHELIAL CELL,UR OCC /LPF; WBC,URINE 0 /HPF (0-4)
[2018-09-12 20:28] LABS: CALCIUM 9.4 mg/dL (8.5-10.1); CREATININE 1.2 mg/dL (0.7-1.3); GFR 60.4; POTASSIUM 3.3 mmol/L (3.5-5.1)
[2018-09-12 20:35] LABS: ALBUMIN 3.7 g/dL (3.4-5.0); TOTAL BILIRUBIN 1.5 mg/dL (0.2-1.0); TOTAL PROTEIN 7.5 g/dL (6.4-8.2)
[2018-09-12] MEDS ORDERED: CEPH-264 PO (21:28)
[2018-09-12] MEDS ORDERED: PRED50TA PO (21:28)
[2018-09-12 22:10] VITALS: BP 107/76
--- NOTE | 2018-09-13 00:14 | RAD ---
Examination: CHEST AP ONLY History: Chest pain today Comparison/Correlation: 06/13/2018 two-view chest x-ray exam Findings: Portable upright frontal view of the chest was obtained. Heart size and pulmonary vasculature are normal. No infiltrate or effusion. No pneumothorax. Bony structures are unremarkable. Impression: No active disease. Electronically signed by: Kane Curtis MD (09/13/2018 12:10 AM) [facility]
--- NOTE | 2018-09-13 04:53 | PHYS DOC ---
Past Medical History Past Medical History: Asthma, Hypertension, [place] Past Surgical History: No Surgical History, Other Additional Past Surgical Histo: PCI Alcohol Use: Occasionally Drug Use: None Adult General Chief Complaint Chief Complaint: ABDOMINAL PAIN HPI HPI Patient is a 67 year old [place] male with history of asthma who presents with nonproductive cough, chest tightness with wheezing and abdominal pain worse with coughing and deep breathing. Symptom onset was 3 days ago. No fever chills , nausea vomiting or sweats. No diarrhea, constipation, urinary frequency urgency or hematuria. Patient has used inhaler occasionally prior to ED arrival. He has not been evaluated for symptoms prior to today's visit current. History obtained from the patient's family members who assist as interpreters. [ ] Review of Systems Review of Systems ROS as per HPI All other systems were reviewed and found to be within normal limits, except as documented in this note. Current Medications Current Medications Current Medications Medications (Trade) Dose Ordered Sig/Bella Start Time Stop Time Status Last Admin Dose Admin Albuterol Sulfate (Ventolin Neb Soln) 10 mg 1X ONCE 09/12/18 20:00 09/12/18 20:01 DC 09/12/18 20:40 10 MG Ipratropium Merigold (Atrovent) 1 mg 1X ONCE 09/12/18 20:00 09/12/18 20:01 DC 09/12/18 20:41 1 MG Prednisone (Prednisone) 50 mg 1X ONCE 09/12/18 20:00 09/12/18 20:01 DC 09/12/18 20:28 50 MG Allergies Allergies Allergies Coded Allergies Type Severity Reaction Last Updated Verified Iodinated Contrast- Oral and IV Dye Allergy Intermediate 04/24/18 Yes Physical Exam Physical Exam Constitutional: Well developed, well nourished, no acute distress, non-toxic appearance. [] HENT: Normocephalic, atraumatic, bilateral external ears normal, oropharynx moist, no oral exudates, nose normal. [] Eyes: PERRLA, EOMI, conjunctiva normal, no discharge. [] Neck: Normal range of motion, no tenderness, supple, no stridor. [] Cardiovascular:Heart rate regular rhythm, no murmur [] Lungs & Thorax: Bilateral breath sounds clear to auscultation [] Abdomen: Bowel sounds normal, soft, no tenderness, no masses, no pulsatile masses. [] Skin: Warm, dry, no erythema, no rash. [] Back: No tenderness, no CVA tenderness. [] Extremities: No tenderness, no cyanosis, no clubbing, ROM intact, no edema. [] Neurologic: Alert and oriented X 3, normal motor function, normal sensory function, no focal deficits noted. [] Psychologic: Affect normal, judgement normal, mood normal. [] Current Patient Data Vital Signs Vital Signs Date Time Temp Pulse Resp B/P (MAP) Pulse Ox O2 Delivery O2 Flow Rate FiO2 09/12/18 22:10 68 107/76 (86) 93 Room Air 09/12/18 19:08 97.8 18 97.8 Lab Values Laboratory Tests Test 09/12/18 19:35 09/12/18 19:52 Urine Collection Type Void Urine Color Yellow Urine Clarity Clear Urine pH 7.0 Urine Specific [place] 1.010 Urine Protein Negative mg/dL (NEG-TRACE) Urine Glucose (UA) Negative mg/dL (NEG) Urine Ketones (Stick) Negative mg/dL (NEG) Urine Blood Negative (NEG) Urine Nitrite Negative (NEG) Urine Bilirubin Negative (NEG) Urine Urobilinogen Dipstick 1.0 mg/dL (0.2 mg/dL) Urine Leukocyte Esterase Negative (NEG) Urine RBC 0 /HPF (0-2) Urine WBC 0 /HPF (0-4) Urine Squamous Epithelial Cells Occ /LPF Urine Bacteria 0 /HPF (0-FEW) White Blood Count 5.3 x10^3/uL (4.0-11.0) Red Blood Count 5.25 x10^6/uL (4.30-5.70) Hemoglobin 14.7 g/dL (13.0-17.5) Hematocrit 42.1 % (39.0-53.0) Mean Corpuscular Volume 80 fL (79-100) Mean Corpuscular Hemoglobin 28 pg (25-35) Mean Corpuscular Hemoglobin Concent 35 g/dL (31-37) Red Cell Distribution Width 14.3 % (11.5-14.5) Platelet Count 193 x10^3/uL (140-400) Neutrophils (%) (Auto) 60 % (31-73) Lymphocytes (%) (Auto) 17 % (24-48) L Monocytes (%) (Auto) 11 % (0-9) H Eosinophils (%) (Auto) 12 % (0-3) H Basophils (%) (Auto) 0 % (0-3) Neutrophils # (Auto) 3.2 x10^3uL (1.8-7.7) Lymphocytes # (Auto) 0.9 x10^3/uL (1.0-4.8) L Monocytes # (Auto) 0.6 x10^3/uL (0.0-1.1) Eosinophils # (Auto) 0.6 x10^3/uL (0.0-0.7) Basophils # (Auto) 0.0 x10^3/uL (0.0-0.2) Sodium Level 143 mmol/L (136-145) Potassium Level 3.3 mmol/L (3.5-5.1) L Chloride Level 107 mmol/L (98-107) Carbon Dioxide Level 28 mmol/L (21-32) Anion Gap 8 (6-14) Blood Urea Nitrogen 8 mg/dL (8-26) Creatinine 1.2 mg/dL (0.7-1.3) Estimated GFR (Cockcroft-Gault) 60.4 BUN/Creatinine Ratio 7 (6-20) Glucose Level 109 mg/dL (70-99) H Calcium Level 9.4 mg/dL (8.5-10.1) Total Bilirubin 1.5 mg/dL (0.2-1.0) H Aspartate Amino Transferase (AST) 14 U/L (15-37) L Alanine Aminotransferase (ALT) 26 U/L (16-63) Alkaline Phosphatase 71 U/L (46-116) Total Protein 7.5 g/dL (6.4-8.2) Albumin 3.7 g/dL (3.4-5.0) Albumin/Globulin Ratio 1.0 (1.0-1.7) Lipase 84 U/L (73-393) Laboratory Tests 09/12/18 19:52 Laboratory Tests 09/12/18 19:52 EKG EKG [] Radiology/Procedures Radiology/Procedures [Chest x-ray:] Course & Med Decision Making Course & Med Decision Making Pertinent Labs and Imaging studies reviewed. (See chart for details) [Acute asthma exacerbation with secondary abdominal pain secondary to cough. Chest x-ray, lab results reviewed. Symptoms significantly improved with treatment. Patient family. Will have follow-up with PCP for continued treatment. Return precautions reviewed. Patient and family members verbalized understanding agreement discharge instructions prior to departure. Dragon Disclaimer Dragon Disclaimer This electronic medical record was generated, in whole or in part, using a voice recognition dictation system. Departure Departure Impression: Primary Impression: Asthma exacerbation Disposition: 01 HOME, SELF-CARE Condition: GOOD Referrals: KVNG NEELY MD (PCP) Patient Instructions: Abdominal Pain (Nonspecific), Asthma, Acute Bronchospasm , Acute Bronchitis Additional Instructions: Please steroids and antibiotics as directed and continue home albuterol inhaler use. Follow-up with your PCP in 2-3 days for reevaluation. Continue all home medications including Flomax use. Return to the ED if new or worsening symptoms. Scripts Prednisone (PREDNISONE) 50 Mg Tablet 1 TAB PO DAILY, #5 TAB Prov: ENRIQUE SPENCE DO 09/12/18 Cephalexin (KEFLEX) 500 Mg Capsule 1 CAP PO TID, #21 CAP Prov: ENRIQUE SPENCE DO 09/12/18 ENRIQUE SPENCE DO Sep 13, 2018 04:53
--- NOTE | 2018-09-13 06:12 | EKG ---
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
== END 2018-09-12 22:16 | disposition home or self-care (01) ==
LOC: ER 17:03
DX: J45.901 Unspecified asthma with (acute) exacerbation (principal); R10.9 Unspecified abdominal pain; I10 Essential (primary) hypertension; I25.2 Old myocardial infarction; Z91.041 Radiographic dye allergy status
CPT/HCPCS: 36415; 71045; 80053; 81001; 83690; 85025; 93005; 94644; 99285; J7512; J7613; J7644; 94640

== ENCOUNTER 2018-10-01 00:45 | Inpatient (IN) | payer OTHER ==
[~2018-10-01] VITALS: Ht 175.3 cm; Wt 89.4 kg
[~2018-10-01 00:45] MED LIST changes: -AMLO10TA6 PO; +AMLO10TA8 PO; +CEPH-264 PO
[2018-10-01] MEDS ORDERED: DEXAMETHASONE 4 MG TABLET PO ONE (01:00)
[2018-10-01] MEDS ORDERED: IPRATRPIUM/ALBUTEROL 0.5/2.5MG 3 ML NEBU. NEB ONE ×3 (01:00→03:15)
[2018-10-01 01:37] LABS: BASO # 0.1 x10^3/uL (0.0-0.2); BASO % 1 % (0-3); EOS # 0.6 x10^3/uL (0.0-0.7); EOS % 9 % (0-3); HEMATOCRIT 45.1 % (39.0-53.0); HEMOGLOBIN 15.6 g/dL (13.0-17.5); LYMPH # 1.3 x10^3/uL (1.0-4.8); LYMPH % 19 % (24-48); MEAN CORPUSCULAR HEMOGLOBIN 28 pg (25-35); MEAN CORPUSCULAR HGB CONC 35 g/dL (31-37); MEAN CORPUSCULAR VOLUME 80 fL (79-100); MONO # 0.7 x10^3/uL (0.0-1.1); MONO % 10 % (0-9); NEUT # 4.4 x10^3uL (1.8-7.7); NEUT % 62 % (31-73); PLATELET COUNT 230 x10^3/uL (140-400); RED BLOOD COUNT 5.62 x10^6/uL (4.30-5.70); RED CELL DISTRIBUTION WIDTH 14.4 % (11.5-14.5); WHITE BLOOD COUNT 7.2 x10^3/uL (4.0-11.0)
--- NOTE | 2018-10-01 01:39 | PHYS DOC ---
Past Medical History Past Medical History: Asthma, Hypertension, OH Past Surgical History: No Surgical History, Other Additional Past Surgical Histo: PCI Additional Information: nonsmoker Alcohol Use: Occasionally Drug Use: None Adult General Chief Complaint Chief Complaint: DYSPNEA/RESPIRATOY DISTRESS HPI HPI Patient is a 68 YO M that is presenting with 3 days of SOA and chest pain with coughing. The pain is in the center of his chest, radiates to his neck and arms , worse with coughing, and is sharp. He denies fever, nausea, vomiting, constipation, and diarrhea. Patient reports burning on urination that is currently being treated. Patient has a history of asthma managed with albuterol , HTN, and prior OH. Patient denies smoking. Patient denies trauma. Review of Systems Review of Systems Constitutional: Denies fever or chills [] Eyes: Denies change in visual acuity, redness, or eye pain [] HENT: Denies nasal congestion or sore throat [] Respiratory: Reports cough and shortness of breath [] Cardiovascular: Reports chest pain, denies palpitations [] GI: Denies abdominal pain, nausea, vomiting, or diarrhea [] : Denies dysuria or hematuria [] Integument: Denies rash or skin lesions [] Neurologic: Denies headache, focal weakness or sensory changes [] Complete systems were reviewed and found to be within normal limits, except as documented in this note. Current Medications Current Medications Current Medications Medications (Trade) Dose Ordered Sig/Bella Start Time Stop Time Status Last Admin Dose Admin Acetaminophen (Tylenol) 650 mg PRN Q4HRS PRN 10/01/18 03:15 10/02/18 03:14 10/01/18 14:05 650 MG Albuterol/ Ipratropium (Duoneb) 3 ml 1X ONCE 10/01/18 03:15 10/01/18 03:16 DC Dexamethasone (Decadron) 10 mg 1X ONCE 10/01/18 01:00 10/01/18 01:01 DC 10/01/18 01:17 10 MG Fentanyl Citrate (Fentanyl 2ml Vial) 100 mcg STK-MED ONCE 10/01/18 03:10 10/01/18 03:12 DC Levofloxacin/ Dextrose 150 ml @ 100 mls/hr 1X ONCE 10/01/18 03:30 10/01/18 04:59 DC 10/01/18 03:17 100 MLS/HR Ondansetron HCl (Zofran) 4 mg PRN Q8HRS PRN 10/01/18 03:15 10/01/18 08:09 DC Piperacillin Sod/ Tazobactam Sod 4.5 gm/Sodium Chloride 100 ml @ 200 mls/hr 1X ONCE 10/01/18 03:00 10/01/18 03:29 DC 10/01/18 03:16 200 MLS/HR Potassium Chloride (Klor-Con) 40 meq 1X ONCE 10/01/18 03:15 10/01/18 03:16 DC 10/01/18 03:14 40 MEQ Sodium Chloride 1,000 ml @ 1,000 mls/hr 1X ONCE 10/01/18 03:00 10/01/18 03:59 DC 10/01/18 02:56 1,000 MLS/HR Vancomycin HCl 2 gm/Sodium Chloride 500 ml @ 250 mls/hr 1X ONCE 10/01/18 03:30 10/01/18 05:29 DC 10/01/18 03:55 250 MLS/HR Allergies Allergies Allergies Coded Allergies Type Severity Reaction Last Updated Verified Iodinated Contrast- Oral and IV Dye Allergy Intermediate 04/24/18 Yes Physical Exam Physical Exam Constitutional: Well developed, well nourished, moderate increased work of breathing. HENT: Normocephalic, atraumatic, nose normal. [] Eyes: Conjunctiva normal, no discharge. [] Neck: Normal range of motion, no tenderness. [] Cardiovascular: Heart rate regular rhythm, no murmur [] Lungs & Thorax: Bilateral diffuse end expiratory wheezing, reduced chest expansion [] Abdomen: Soft, no tenderness. [] Skin: Warm, dry, no erythema, no rash. [] Extremities: No tenderness, no edema. [] Neurologic: Alert and oriented X 3, no focal deficits noted. [] Psychologic: Affect normal, judgement normal, mood normal. [] Current Patient Data Vital Signs Vital Signs Date Time Temp Pulse Resp B/P (MAP) Pulse Ox O2 Delivery O2 Flow Rate FiO2 10/01/18 03:43 70 22 107/73 (84) 94 Room Air 10/01/18 00:55 98.0 98.0 Lab Values Laboratory Tests Test 10/01/18 01:00 10/01/18 01:10/01/18 02:17 White Blood Count 7.2 x10^3/uL (4.0-11.0) Red Blood Count 5.62 x10^6/uL (4.30-5.70) Hemoglobin 15.6 g/dL (13.0-17.5) Hematocrit 45.1 % (39.0-53.0) Mean Corpuscular Volume 80 fL (79-100) Mean Corpuscular Hemoglobin 28 pg (25-35) Mean Corpuscular Hemoglobin Concent 35 g/dL (31-37) Red Cell Distribution Width 14.4 % (11.5-14.5) Platelet Count 230 x10^3/uL (140-400) Neutrophils (%) (Auto) 62 % (31-73) Lymphocytes (%) (Auto) 19 % (24-48) L Monocytes (%) (Auto) 10 % (0-9) H Eosinophils (%) (Auto) 9 % (0-3) H Basophils (%) (Auto) 1 % (0-3) Neutrophils # (Auto) 4.4 x10^3uL (1.8-7.7) Lymphocytes # (Auto) 1.3 x10^3/uL (1.0-4.8) Monocytes # (Auto) 0.7 x10^3/uL (0.0-1.1) Eosinophils # (Auto) 0.6 x10^3/uL (0.0-0.7) Basophils # (Auto) 0.1 x10^3/uL (0.0-0.2) D-Dimer (Dolyl) 0.30 ug/mlFEU (0.00-0.50) Sodium Level 139 mmol/L (136-145) Potassium Level 3.1 mmol/L (3.5-5.1) L Chloride Level 105 mmol/L (98-107) Carbon Dioxide Level 26 mmol/L (21-32) Anion Gap 8 (6-14) Blood Urea Nitrogen 9 mg/dL (8-26) Creatinine 1.2 mg/dL (0.7-1.3) Estimated GFR (Cockcroft-Gault) 60.2 BUN/Creatinine Ratio 8 (6-20) Glucose Level 121 mg/dL (70-99) H Lactic Acid Level 3.0 mmol/L (0.4-2.0) H Calcium Level 9.5 mg/dL (8.5-10.1) Magnesium Level 1.9 mg/dL (1.8-2.4) Total Bilirubin 0.8 mg/dL (0.2-1.0) Aspartate Amino Transferase (AST) 16 U/L (15-37) Alanine Aminotransferase (ALT) 37 U/L (16-63) Alkaline Phosphatase 82 U/L (46-116) Creatine Kinase 85 U/L (39-308) Creatine Kinase MB (Mass) 0.6 ng/mL (0.0-3.6) Creatine Kinase MB Relative Index 0.7 % (0-4) Troponin I Quantitative < 0.017 ng/mL (0.000-0.055) Total Protein 8.1 g/dL (6.4-8.2) Albumin 3.7 g/dL (3.4-5.0) Albumin/Globulin Ratio 0.8 (1.0-1.7) L Urine Collection Type Unknown Urine Color Yellow Urine Clarity Clear Urine pH 6.5 Urine Specific [place] 1.015 Urine Protein Negative mg/dL (NEG-TRACE) Urine Glucose (UA) Negative mg/dL (NEG) Urine Ketones (Stick) Negative mg/dL (NEG) Urine Blood Negative (NEG) Urine Nitrite Negative (NEG) Urine Bilirubin Negative (NEG) Urine Urobilinogen Dipstick 0.2 mg/dL (0.2 mg/dL) Urine Leukocyte Esterase Negative (NEG) Urine RBC Occ /HPF (0-2) Urine WBC Occ /HPF (0-4) Urine Squamous Epithelial Cells Occ /LPF Urine Bacteria Few /HPF (0-FEW) Urine Mucus Slight /LPF Influenza Type A Antigen Negative (NEGATIVE) Influenza Type B Antigen Negative (NEGATIVE) Laboratory Tests 10/01/18 01:00 Laboratory Tests 10/01/18 01:00 EKG EKG @0051 sinus rhythm at 97BPM, leftward axis, non-specific T wave abnormality, no ST segment elevation Radiology/Procedures Radiology/Procedures @0101 chest x-ray Preliminary read by ED physician without acute process Course & Med Decision Making Course & Med Decision Making Pertinent Labs and Imaging studies reviewed. (See chart for details) Patient is a 68 YO M that is presenting with SOA that began 3 days ago. Patient has a history of asthma managed with albuterol. Pulse 97 and respiration at 24 meets positive SIRS criteria. Labs obtained and posted to chart. Initial troponin and D-dimer WNL. EKG shows no ST segment elevation. Lactic acidosis at 3. UA WNL. Rapid flu swab negative. Chest x-ray without acute process initial read by ED physician. Blood cultures and IV antibiotics initiated due to concern for severe sepsis given positive SIRS criteria and elevated lactic acid with presumed pulmonic infectious process. IVF hydration bolusing provided. Potassium of 3.1, replacement initiated. Patient received three breathing treatments in the ED and remained short of breath, patient 96% on room air. Patient requiring admission for further evaluation and treatment. Discussed with Dr. Post (hospitalist) who is in agreement with admission. Consult to pulmonology placed. Discussed findings and plan with patient and family, who acknowledge understanding and agreement. Dragon Disclaimer Dragon Disclaimer This electronic medical record was generated, in whole or in part, using a voice recognition dictation system. Departure Departure Impression: Primary Impression: Severe sepsis Additional Impressions: Hypokalemia Acute bronchitis, unspecified History of asthma Disposition: ADMITTED INPATIENT (Med/Tele) Admitting Physician: Rehana Jenkins Condition: GUARDED Referrals: KVNG NEELY MD (PCP) Critical Care Time Critical care time was 30 minutes which includes time at bedside, spent in discussion of patient's care with specialists and/or family members, with interpretation of laboratory and/or radiological studies and is exclusive of procedures. Problem Qualifiers Additional Impressions: Acute bronchitis, unspecified Bronchitis organism: unspecified organism Qualified Codes: J20.9 - Acute bronchitis, unspecified KENNY IVAN DO Oct 01, 2018 01:39
[2018-10-01 01:42] LABS: CALCIUM 9.5 mg/dL (8.5-10.1); CREATININE 1.2 mg/dL (0.7-1.3); GFR 60.2; POTASSIUM 3.1 mmol/L (3.5-5.1)
[2018-10-01 01:49] LABS: ALBUMIN 3.7 g/dL (3.4-5.0); ALBUMIN/GLOBULIN RATIO 0.8 (1.0-1.7); MAGNESIUM 1.9 mg/dL (1.8-2.4); TOTAL BILIRUBIN 0.8 mg/dL (0.2-1.0); TOTAL PROTEIN 8.1 g/dL (6.4-8.2)
[2018-10-01 01:52] LABS: BILIRUBIN,URINE NEGATIVE (NEG); CLARITY,URINE CLEAR; COLOR,URINE YELLOW; NITRITE,URINE NEGATIVE (NEG); PH,URINE 6.5; PROTEIN,URINE NEGATIVE (NEG-TRACE); UROBILINOGEN,URINE 0.2 mg/dL (0.2 mg/dL)
[2018-10-01 02:10] LABS: BACTERIA,URINE FEW /HPF (0-FEW); RBC,URINE OCC /HPF (0-2); WBC,URINE OCC /HPF (0-4)
[2018-10-01 02:11] LABS: SQUAMOUS EPITHELIAL CELL,UR OCC /LPF
[2018-10-01 02:42] LABS: INFLUENZA A PATIENT NEGATIVE (NEGATIVE); INFLUENZA B PATIENT NEGATIVE (NEGATIVE)
[2018-10-01] MEDS ORDERED: PIPERACILLIN/TAZOBACTAM 4.5 GM in IV NORMAL SALINE 100ML 100 ML IV ONE (03:00)
[2018-10-01] MEDS ORDERED: IV NORMAL SALINE 1000ML BAG 1,000 ML IV ONE ×3 (03:00→14:30)
[2018-10-01] MEDS ORDERED: fentaNYL PF VIAL 100 MCG/2 ML VIAL ONE (03:10)
[2018-10-01] MEDS ORDERED: POTASSIUM CHLORIDE 20 MEQ TABLET.ER. PO ONE (03:15)
[2018-10-01] MEDS ORDERED: ONDANSETRON PF 4 MG/2 ML VIAL. IV PRN ×2 (03:15→08:15)
[2018-10-01] MEDS ORDERED: fentaNYL PF VIAL 100 MCG/2 ML VIAL IV ONE (03:15)
[2018-10-01] MEDS ORDERED: VANCOMYCIN 2 GM in IV NORMAL SALINE 500ML BAG 500 ML IV ONE (03:30)
--- NOTE | 2018-10-01 04:55 | NUR ---
The patient, BILL KIRBY, 68 y/o, M admitted by BRIAN JI MD, was given written information regarding hospital policies, unit procedures and contact persons. Valuables were checked and LEFT WITH PATIENT IN PATIENTS ROOM.
[2018-10-01 04:56] VITALS: BP 127/79
[2018-10-01] MEDS: IPRATRPIUM/ALBUTEROL 0.5/2.5MG 3 ML NEBU. NEB SCH ×4 (06:06→20:00)
[2018-10-01 07:34] VITALS: BP 119/89
--- NOTE | 2018-10-01 08:12 | RAD ---
CHEST PA LATERAL Clinical indications: cough, shortness of air COMPARISON: September 2018. Findings: Hyperinflation is seen consistent with COPD. No acute lung infiltrate or pleural effusion or pulmonary edema or lung mass or pneumothorax is seen. The heart size, pulmonary vasculature, mediastinum and both lamin are unremarkable. The osseous structures appear intact. Impression: No acute radiographic abnormality is seen. COPD. Electronically signed by: Edvin Medina MD (10/01/2018 8:07 AM) [facility]
[2018-10-01] MEDS ORDERED: NON FORMULARY ITEM (Orphenadrine Citrate 1 TAB) PO PRN (08:15)
[2018-10-01] MEDS ORDERED: guaiFENesin DM 200MG/20MG 10 ML SYRUP PO PRN (08:15)
[2018-10-01] MEDS ORDERED: PIP/TAZO PER PHARMACY MC PRN (08:15)
[2018-10-01] MEDS ORDERED: ALBUTEROL SULFATE 2.5 MG/3 ML NEBU. INH PRN (08:15)
[2018-10-01] MEDS ORDERED: NON FORMULARY ITEM (Losartan/Hydrochlorothiazide (Losartan-Hctz 100-12.5 Mg Tab) 1 TAB) PO SCH (09:00)
--- NOTE | 2018-10-01 09:14 | PDOC ---
Provider Note Provider Note dictated dyspnea ae of asthma acute bronchitis see orders. ROSSANA SANDOVAL MD Oct 01, 2018 09:14
[2018-10-01] MEDS: PIPERACILLIN/TAZOBACTAM 3.375 GM in IV NORMAL SALINE 50ML 50 ML IV SCH ×2 (09:28→17:57)
[2018-10-01] MEDS: hydroCHLOROthiazide 12.5 MG CAPSULE PO SCH (09:29)
[2018-10-01] MEDS: LOSARTAN POTASSIUM 50 MG TABLET. PO SCH (09:30)
[2018-10-01] MEDS: TAMSULOSIN 0.4 MG CAP.ER.24H. PO SCH (09:30)
[2018-10-01] MEDS: ACETAMINOPHEN 325 MG TABLET. PO PRN ×2 (09:30→14:05)
[2018-10-01] MEDS: methylPREDNISolone SOD SUCC PF 40 MG/ML VIAL. IV SCH ×3 (09:46→21:13)
[2018-10-01] MEDS: amLODIPine BESYLATE 10 MG TABLET PO SCH (09:46)
--- NOTE | 2018-10-01 09:53 | PDOC1 ---
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 Pneumonia on x-ray. Known history of asthma on inhalers. Never smoker. Fulfills sepsis criteria with initial lactate that was high and now is 2.9.tachycradic and tachypneic. Mild hypokalemia 3.1. Flu negative. Very wheezy on anterior posterior auscultation. Pulmonary has been consulted On ROS very tender abdomen, claims hard stools 2 days ago. Tympanitic. But normoactive bowel sounds. We'll try to make a move if no resolved and make and can further image. Steroids, breathing treatment, cough medicine all on board Also concerns of acute on chronic neck pain. We'll trial Flexeril. History of injections today neck? Quite unsure Past Medical History Pulmonary: Asthma, Bronchitis Past Surgical History Past Surgical History: No pertinent history Family History Family History: No Significant Social History Smoke: No ALCOHOL: none Drugs: None Current Problem List Problem List Problems Medical Problems: (1) Acute bronchitis, unspecified Status: Acute (2) History of asthma Status: Acute (3) Hypokalemia Status: Acute (4) Severe sepsis Status: Acute Current Medications Current Medications Current Medications Dexamethasone (Decadron) 10 mg 1X ONCE PO Last administered on 10/01/18at 01:17 ; Start 10/01/18 at 01:00; Stop 10/01/18 at 01:01; Status DC Albuterol/ Ipratropium (Duoneb) 3 ml 1X ONCE NEB Last administered on at 01:26; Start 10/01/18 at 01:00; Stop 10/01/18 at 01:01; Status DC Albuterol/ Ipratropium (Duoneb) 3 ml 1X ONCE NEB Last administered on at 01:37; Start 10/01/18 at 01:45; Stop 10/01/18 at 01:46; Status DC Piperacillin Sod/ Tazobactam Sod 4.5 gm/Sodium Chloride 100 ml @ 200 mls/hr 1X ONCE IV Last administered on 10/01/18at 03:16; Start 10/01/18 at 03:00; Stop 10/01/18 at 03:29; Status DC Levofloxacin/ Dextrose 150 ml @ 100 mls/hr 1X ONCE IV Last administered on at 03:17; Start 10/01/18 at 03:30; Stop 10/01/18 at 04:59; Status DC Vancomycin HCl 2 gm/Sodium Chloride 500 ml @ 250 mls/hr 1X ONCE IV Last administered on 10/01/18at 03:55; Start 10/01/18 at 03:30; Stop 10/01/18 at 05:29 ; Status DC Sodium Chloride 1,000 ml @ 1,000 mls/hr 1X ONCE IV Last administered on at 02:56; Start 10/01/18 at 03:00; Stop 10/01/18 at 03:59; Status DC Sodium Chloride 1,000 ml @ 1,000 mls/hr 1X ONCE IV Last administered on at 02:56; Start 10/01/18 at 04:00; Stop 10/01/18 at 04:59; Status DC Potassium Chloride (Klor-Con) 40 meq 1X ONCE PO Last administered on at 03:14; Start 10/01/18 at 03:15; Stop 10/01/18 at 03:16; Status DC Fentanyl Citrate (Fentanyl 2ml Vial) 50 mcg 1X ONCE IV Last administered on at 03:15; Start 10/01/18 at 03:15; Stop 10/01/18 at 03:16; Status DC Albuterol/ Ipratropium (Duoneb) 3 ml 1X ONCE NEB ; Start 10/01/18 at 03:15; Stop 10/01/18 at 03:16; Status DC Fentanyl Citrate (Fentanyl 2ml Vial) 100 mcg STK-MED ONCE .ROUTE ; Start at 03:10; Stop 10/01/18 at 03:12; Status DC Ondansetron HCl (Zofran) 4 mg PRN Q8HRS PRN IV NAUSEA/VOMITING; Start 10/01/18 at 03:15; Stop 10/01/18 at 08:09; Status DC Acetaminophen (Tylenol) 650 mg PRN Q4HRS PRN PO FEVER Last administered on 10/01at 09:30; Start 10/01/18 at 03:15; Stop 10/02/18 at 03:14 Albuterol/ Ipratropium (Duoneb) 3 ml RTQID NEB Last administered on 10/01/18at 06:06; Start 10/01/18 at 08:00; Stop 10/02/18 at 07:59 Amlodipine Besylate (Norvasc) 10 mg DAILY PO Last administered on 10/01/18at 09: 46; Start 10/01/18 at 09:00 Hydrochlorothiazide (Microzide) 37.5 mg DAILY PO Last administered on at 09:29; Start 10/01/18 at 09:00 Tamsulosin HCl (Flomax) 0.4 mg DAILY PO Last administered on 10/01/18at 09:30; Start 10/01/18 at 09:00 Non-Formulary Medication (Losartan/ Hydrochlorothiazide (Losartan-Hctz 100-12.5 Mg Tab)) 1 tab DAILY PO ; Start 10/01/18 at 09:00; Status UNV Naproxen (Naprosyn) 500 mg PRN BID PRN PO PAIN; Start 10/01/18 at 08:00 Losartan Potassium (Cozaar) 100 mg DAILY PO Last administered on 10/01/18at 09: 30; Start 10/01/18 at 09:00 Ondansetron HCl (Zofran) 4 mg PRN Q6HRS PRN IV NAUSEA/VOMITING; Start 10/01/18 at 08:15 Guaifenesin (Robitussin Dm) 10 ml PRN Q6HRS PRN PO COUGH Last administered on at 09:28; Start 10/01/18 at 08:15 Piperacillin Sod/ Tazobactam Sod (Zosyn Per Pharmacy) 1 each PRN DAILY PRN MC SEE COMMENTS; Start 10/01/18 at 08:15 Albuterol Sulfate (Ventolin Neb Soln) 2.5 mg PRN Q6HRS PRN INH SHORTNESS OF BREATH; Start 10/01/18 at 08:15 Non-Formulary Medication (Orphenadrine Citrate ) 1 tab BID PRN PO MUSCLE PAIN; Start 10/01/18 at 08:15; Status UNV Piperacillin Sod/ Tazobactam Sod 3.375 gm/Sodium Chloride 50 ml @ 100 mls/hr Q6HRS IV Last administered on 10/01/18at 09:28; Start 10/01/18 at 09:00 Methylprednisolone Sodium Succinate (SOLU-Medrol 40MG VIAL) 40 mg Q8HRS IV Last administered on 10/01/18at 09:46; Start 10/01/18 at 09:15 Budesonide (Pulmicort) 0.5 mg RTBID NEB ; Start 10/01/18 at 09:30 Lactobacillus Rhamnosus (Culturelle) 1 cap BID PO ; Start 10/01/18 at 21:00 Active Scripts Active Prednisone 50 Mg Tablet 1 Tab PO DAILY Keflex (Cephalexin) 500 Mg Capsule 1 Cap PO TID Naproxen 500 Mg Tablet 1 Tab PO BID PRN Orphenadrine Citrate 100 Mg Tablet.er 1 Tab PO BID PRN Prednisone 20 Mg Tablet 2 Tab PO DAILY Flomax (Tamsulosin Hcl) 0.4 Mg Cap.er.24h 1 Cap PO DAILY Losartan-Hctz 100-12.5 Mg Tab (Losartan/Hydrochlorothiazide) 1 Each Tablet 1 Tab PO DAILY Amlodipine Besylate 10 Mg Tablet 10 Mg PO DAILY Hydrochlorothiazide Tablet (Hydrochlorothiazide) 25 Mg Tablet 1 Tab PO DAILY Azithromycin Tablet (Azithromycin) 250 Mg Tablet 250 Mg PO DAILY Prednisone 50 Mg Tablet 1 Tab PO DAILY Proair Hfa Inhaler (Albuterol Sulfate) 8.5 Gm Hfa.aer.ad 1 Puff INH PRN Q6HRS PRN Zithromax (Azithromycin) 250 Mg Tablet 1 Pkg PO UD Prednisone 50 Mg Tablet 1 Tab PO DAILY Allergies Allergies: Coded Allergies: Iodinated Contrast- Oral and IV Dye (Verified Allergy, Intermediate, ) ROS Review of System As per history of present illness, the rest of ROS 14 point negative Physical Exam General: mild distress, Other (tachypneic, audible wheezing) HEENT: Atraumatic, PERRLA Lungs: Normal air movement, Other (wheezy, symmetrical chest expansion no crackles) Cardiovascular: S1, S2 Abdomen: Soft, Other (normoactive bowel sounds tender, tympanitic-no acute abdomen) Rectal Exam: not examined Extremities: No clubbing, No cyanosis, No edema, Normal pulses, No tenderness/ swelling Skin: No rashes, No breakdown, No significant lesion Neuro: Normal gait, Normal speech, Strength at 5/5 X4 ext, Normal tone, Sensation intact, Cranial nerves 3-12 NL, Reflexes 2+ Psych/Mental Status: Mental status NL, Mood NL Vitals Vitals Vital Signs Date Time Temp Pulse Resp B/P (MAP) Pulse Ox O2 Delivery O2 Flow Rate FiO2 10/01/18 09:46 85 119/89 10/01/18 07:34 97.8 22 97 Room Air 97.8 Labs Labs Laboratory Tests Test 10/01/18 01:00 10/01/18 01:20 10/01/18 02:17 10/01/18 06:10 White Blood Count 7.2 x10^3/uL (4.0-11.0) Red Blood Count 5.62 x10^6/uL (4.30-5.70) Hemoglobin 15.6 g/dL (13.0-17.5) Hematocrit 45.1 % (39.0-53.0) Mean Corpuscular Volume 80 fL (79-100) Mean Corpuscular Hemoglobin 28 pg (25-35) Mean Corpuscular Hemoglobin Concent 35 g/dL (31-37) Red Cell Distribution Width 14.4 % (11.5-14.5) Platelet Count 230 x10^3/uL (140-400) Neutrophils (%) (Auto) 62 % (31-73) Lymphocytes (%) (Auto) 19 % (24-48) Monocytes (%) (Auto) 10 % (0-9) Eosinophils (%) (Auto) 9 % (0-3) Basophils (%) (Auto) 1 % (0-3) Neutrophils # (Auto) 4.4 x10^3uL (1.8-7.7) Lymphocytes # (Auto) 1.3 x10^3/uL (1.0-4.8) Monocytes # (Auto) 0.7 x10^3/uL (0.0-1.1) Eosinophils # (Auto) 0.6 x10^3/uL (0.0-0.7) Basophils # (Auto) 0.1 x10^3/uL (0.0-0.2) D-Dimer (Dolly) 0.30 ug/mlFEU (0.00-0.50) Sodium Level 139 mmol/L (136-145) Potassium Level 3.1 mmol/L (3.5-5.1) Chloride Level 105 mmol/L (98-107) Carbon Dioxide Level 26 mmol/L (21-32) Anion Gap 8 (6-14) Blood Urea Nitrogen 9 mg/dL (8-26) Creatinine 1.2 mg/dL (0.7-1.3) Estimated GFR (Cockcroft-Gault) 60.2 BUN/Creatinine Ratio 8 (6-20) Glucose Level 121 mg/dL (70-99) Lactic Acid Level 3.0 mmol/L (0.4-2.0) 2.9 mmol/L (0.4-2.0) Calcium Level 9.5 mg/dL (8.5-10.1) Magnesium Level 1.9 mg/dL (1.8-2.4) Total Bilirubin 0.8 mg/dL (0.2-1.0) Aspartate Amino Transf (AST/SGOT) 16 U/L (15-37) Alanine Aminotransferase (ALT/SGPT) 37 U/L (16-63) Alkaline Phosphatase 82 U/L (46-116) Creatine Kinase 85 U/L (39-308) Creatine Kinase MB (Mass) 0.6 ng/mL (0.0-3.6) Creatine Kinase MB Relative Index 0.7 % (0-4) Troponin I Quantitative < 0.017 ng/mL (0.000-0.055) < 0.017 ng/mL (0.000-0.055) Total Protein 8.1 g/dL (6.4-8.2) Albumin 3.7 g/dL (3.4-5.0) Albumin/Globulin Ratio 0.8 (1.0-1.7) Urine Collection Type Unknown Urine Color Yellow Urine Clarity Clear Urine pH 6.5 Urine Specific [place] 1.015 Urine Protein Negative mg/dL (NEG-TRACE) Urine Glucose (UA) Negative mg/dL (NEG) Urine Ketones (Stick) Negative mg/dL (NEG) Urine Blood Negative (NEG) Urine Nitrite Negative (NEG) Urine Bilirubin Negative (NEG) Urine Urobilinogen Dipstick 0.2 mg/dL (0.2 mg/dL) Urine Leukocyte Esterase Negative (NEG) Urine RBC Occ /HPF (0-2) Urine WBC Occ /HPF (0-4) Urine Squamous Epithelial Cells Occ /LPF Urine Bacteria Few /HPF (0-FEW) Urine Mucus Slight /LPF Influenza Type A Antigen Negative (NEGATIVE) Influenza Type B Antigen Negative (NEGATIVE) Laboratory Tests Test 10/01/18 01:00 10/01/18 01:20 10/01/18 02:17 10/01/18 06:10 White Blood Count 7.2 x10^3/uL (4.0-11.0) Red Blood Count 5.62 x10^6/uL (4.30-5.70) Hemoglobin 15.6 g/dL (13.0-17.5) Hematocrit 45.1 % (39.0-53.0) Mean Corpuscular Volume 80 fL (79-100) Mean Corpuscular Hemoglobin 28 pg (25-35) Mean Corpuscular Hemoglobin Concent 35 g/dL (31-37) Red Cell Distribution Width 14.4 % (11.5-14.5) Platelet Count 230 x10^3/uL (140-400) Neutrophils (%) (Auto) 62 % (31-73) Lymphocytes (%) (Auto) 19 % (24-48) Monocytes (%) (Auto) 10 % (0-9) Eosinophils (%) (Auto) 9 % (0-3) Basophils (%) (Auto) 1 % (0-3) Neutrophils # (Auto) 4.4 x10^3uL (1.8-7.7) Lymphocytes # (Auto) 1.3 x10^3/uL (1.0-4.8) Monocytes # (Auto) 0.7 x10^3/uL (0.0-1.1) Eosinophils # (Auto) 0.6 x10^3/uL (0.0-0.7) Basophils # (Auto) 0.1 x10^3/uL (0.0-0.2) D-Dimer (Dolly) 0.30 ug/mlFEU (0.00-0.50) Sodium Level 139 mmol/L (136-145) Potassium Level 3.1 mmol/L (3.5-5.1) Chloride Level 105 mmol/L (98-107) Carbon Dioxide Level 26 mmol/L (21-32) Anion Gap 8 (6-14) Blood Urea Nitrogen 9 mg/dL (8-26) Creatinine 1.2 mg/dL (0.7-1.3) Estimated GFR (Cockcroft-Gault) 60.2 BUN/Creatinine Ratio 8 (6-20) Glucose Level 121 mg/dL (70-99) Lactic Acid Level 3.0 mmol/L (0.4-2.0) 2.9 mmol/L (0.4-2.0) Calcium Level 9.5 mg/dL (8.5-10.1) Magnesium Level 1.9 mg/dL (1.8-2.4) Total Bilirubin 0.8 mg/dL (0.2-1.0) Aspartate Amino Transf (AST/SGOT) 16 U/L (15-37) Alanine Aminotransferase (ALT/SGPT) 37 U/L (16-63) Alkaline Phosphatase 82 U/L (46-116) Creatine Kinase 85 U/L (39-308) Creatine Kinase MB (Mass) 0.6 ng/mL (0.0-3.6) Creatine Kinase MB Relative Index 0.7 % (0-4) Troponin I Quantitative < 0.017 ng/mL (0.000-0.055) < 0.017 ng/mL (0.000-0.055) Total Protein 8.1 g/dL (6.4-8.2) Albumin 3.7 g/dL (3.4-5.0) Albumin/Globulin Ratio 0.8 (1.0-1.7) Urine Collection Type Unknown Urine Color Yellow Urine Clarity Clear Urine pH 6.5 Urine Specific [place] 1.015 Urine Protein Negative mg/dL (NEG-TRACE) Urine Glucose (UA) Negative mg/dL (NEG) Urine Ketones (Stick) Negative mg/dL (NEG) Urine Blood Negative (NEG) Urine Nitrite Negative (NEG) Urine Bilirubin Negative (NEG) Urine Urobilinogen Dipstick 0.2 mg/dL (0.2 mg/dL) Urine Leukocyte Esterase Negative (NEG) Urine RBC Occ /HPF (0-2) Urine WBC Occ /HPF (0-4) Urine Squamous Epithelial Cells Occ /LPF Urine Bacteria Few /HPF (0-FEW) Urine Mucus Slight /LPF Influenza Type A Antigen Negative (NEGATIVE) Influenza Type B Antigen Negative (NEGATIVE) VTE Prophylaxis Ordered VTE Prophylaxis Devices: Yes VTE Pharmacological Prophylaxi: Yes Assessment/Plan Assessment/Plan Asthma exacerbation, acute bronchitis versus pneumonia-officially chest x-rays pending Never smoker Sepsis POA with no organ dysfunction Mild hypokalemia Flu negative abd pain, constipation PLAN: Nebs, cough medicine, steroids Pulmo consulted Bowel regimen now, if no resolve of abdominal pain can do further imaging No real home meds to reconcile Significant time, in the room for translation etc. Discussed with RN Trial of Flexeril for the neck pain-if no improvement can consult physiatry 2 [place] admit BRIAN JI MD Oct 01, 2018 09:53
--- NOTE | 2018-10-01 09:56 | CONS ---
DATE OF CONSULTATION: 10/01/2018 REASON FOR CONSULTATION: I was asked to see this 68-year-old gentleman for acute exacerbation of asthma. HISTORY OF PRESENT ILLNESS: He does speak a little Persian. He is a nonsmoker. He has had increased shortness of breath, cough and wheezing for the past 3 days, he has had some fever and chills. He has nasal congestion. PAST MEDICAL HISTORY: Asthma, hypertension, myocardial infarction. ALLERGIES: IODINE ORAL AND IV DYE. MEDICATIONS: Currently, he is on Zosyn, DuoNeb, Cozaar, hydrochlorothiazide. SOCIAL HISTORY: Nonsmoker. FAMILY HISTORY: Hypertension. REVIEW OF SYSTEMS: As mentioned as above, other systems otherwise negative. PHYSICAL EXAMINATION: GENERAL: Well-developed gentleman. VITAL SIGNS: His O2 saturation is 97%, respiratory rate 22, heart rate 85. Blood pressure 119/89, temperature 97.8. HEENT: Normocephalic, atraumatic. Pupils equal, round, reactive to light. Throat is clear. Nose: There is inflamed crease. NECK: There is no JVD, lymphadenopathy or thyromegaly. CARDIOVASCULAR: Regular rate and rhythm. PMI is nondisplaced. CHEST: Inspection is normal. LUNGS: There is end-expiratory wheezing. Percussion is within normal limit. ABDOMEN: Soft. Bowel sounds are good. There is no mass. EXTREMITIES: There is no edema. LYMPHATICS: There is no lymphadenopathy. SKIN: Chronic changes. NEUROLOGIC: Alert and oriented. LABORATORY DATA: I reviewed the following lab data: Chest x-ray does not show any infiltrate. Influenza A and B negative. WBC 7.2, hemoglobin 15.6, platelet 230. Sodium 139, potassium 3.1, chloride 105, CO2 of 26, glucose 121, BUN 9, creatinine 1.2, lactic acid 2.9. Troponin less than 0.01. BNP 29. IMPRESSION: 1. Dyspnea secondary to acute exacerbation of asthma, acute bronchitis versus others. 2. Acute exacerbation of asthma. 3. Acute bronchitis. 4. ?sepsis. 5. Hypokalemia. PLAN AND RECOMMENDATIONS: 1. Titrate FiO2 to keep O2 saturation 92%. 2. Continue bronchodilator. 3. Add inhaled corticosteroid. 4. Start Solu-Medrol 40 mg IV every 8. 5. Continue Zosyn. 6. Follow up blood cultures. 7. Monitor respiratory status very closely. 8. replace K. The findings and recommendations were discussed with the patient and RN. Thank you very much for allowing me to participate in care of this very nice gentleman. ROSSANA SANDOVAL M.D. DR: Tyesha JOB#: [id number] / [id number] JAMES
[2018-10-01] MEDS ORDERED: CYCLOBENZAPRINE 10 MG TABLET. PO ONE (10:00)
[2018-10-01] MEDS ORDERED: MAGNESIUM HYDROXIDE 2,400 MG/30 ML ORAL.SUSP. PO ONE (10:00)
[2018-10-01] MEDS ORDERED: KETOROLAC 15 MG/ML VIAL. IV PRN (10:00)
[2018-10-01] MEDS ORDERED: MAGNESIUM HYDROXIDE 2,400 MG/30 ML ORAL.SUSP. PO PRN (10:00)
--- NOTE | 2018-10-01 10:14 | EKG ---
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
[2018-10-01 10:38] VITALS: BP 102/71
--- NOTE | 2018-10-01 10:50 | RAD ---
AP view of the abdomen Clinical indications: Abdominal pain. FINDINGS: There is moderate fecal retention within the right side of the colon and transverse colon to the proximal descending colon. No significant fecal retention is seen within the rectosigmoid region. No dilatation of large bowel or small bowel is seen. The osseous structures are intact. Vascular calcification of the right anatomic pelvis is seen. IMPRESSION: Moderate fecal retention. Electronically signed by: Edvin Medina MD (10/01/2018 10:46 AM) [facility]
[2018-10-01] MEDS: BUDESONIDE 0.5 MG/2 ML NEBU. NEB SCH ×2 (11:12→20:00)
[2018-10-01] MEDS: POLYETHYLENE GLYCOL 3350 17 GM PACKET. PO SCH (11:15)
[2018-10-01] MEDS: DOCUSATE SODIUM 100 MG CAPSULE. PO SCH (11:15)
[2018-10-01 14:15] VITALS: BP 114/75
[2018-10-01] MEDS: CYCLOBENZAPRINE 10 MG TABLET. PO PRN (18:15)
[2018-10-01] MEDS: NAPROXEN 500 MG TABLET PO PRN (18:15)
[2018-10-01 19:00] VITALS: BP 113/72
[2018-10-01] MEDS: IV NORMAL SALINE 1000ML BAG 1,000 ML IV SCH (21:13)
[2018-10-01] MEDS: LACTOBACILLUS RHAMNOSUS GG 1 CAPSULE. PO SCH (21:13)
[2018-10-01 23:14] VITALS: BP 104/67
[2018-10-02] MEDS: PIPERACILLIN/TAZOBACTAM 3.375 GM in IV NORMAL SALINE 50ML 50 ML IV SCH ×4 (00:29→17:49)
[2018-10-02 03:16] VITALS: BP 100/68
[2018-10-02] MEDS: methylPREDNISolone SOD SUCC PF 40 MG/ML VIAL. IV SCH ×2 (06:06→13:55)
[2018-10-02] MEDS: CYCLOBENZAPRINE 10 MG TABLET. PO PRN ×2 (06:06→20:47)
[2018-10-02] MEDS: NAPROXEN 500 MG TABLET PO PRN ×2 (06:06→17:54)
[2018-10-02 07:00] VITALS: BP 103/60
[2018-10-02] MEDS: BUDESONIDE 0.5 MG/2 ML NEBU. NEB SCH ×2 (08:15→20:56)
[2018-10-02] MEDS: IPRATRPIUM/ALBUTEROL 0.5/2.5MG 3 ML NEBU. NEB SCH ×4 (08:17→20:56)
[2018-10-02] MEDS: hydroCHLOROthiazide 12.5 MG CAPSULE PO SCH (08:30)
[2018-10-02] MEDS: TAMSULOSIN 0.4 MG CAP.ER.24H. PO SCH (08:30)
[2018-10-02] MEDS: amLODIPine BESYLATE 10 MG TABLET PO SCH (08:30)
[2018-10-02] MEDS: LOSARTAN POTASSIUM 50 MG TABLET. PO SCH (08:30)
[2018-10-02] MEDS: POLYETHYLENE GLYCOL 3350 17 GM PACKET. PO SCH (08:30)
[2018-10-02] MEDS: LACTOBACILLUS RHAMNOSUS GG 1 CAPSULE. PO SCH ×2 (08:30→20:47)
[2018-10-02] MEDS: DOCUSATE SODIUM 100 MG CAPSULE. PO SCH (08:30)
--- NOTE | 2018-10-02 08:57 | PDOC ---
PULMONARY PROGRESS NOTES Subjective PT WITH NO SIGH OF DISTRESS Vitals Vital Signs Date Time Temp Pulse Resp B/P (MAP) Pulse Ox O2 Delivery O2 Flow Rate FiO2 10/02/18 08:30 76 103/60 10/02/18 07:00 16 96 10/02/18 03:16 97.8 Room Air 97.8 General: Alert Lungs: Crackles Cardiovascular: S1, S2 Abdomen: Soft, Non-tender Neuro Exam: Alert Extremities: No Edema Skin: Warm Labs Laboratory Tests Test 10/01/18 01:00 10/01/18 01:20 10/01/18 02:17 10/01/18 06:10 White Blood Count 7.2 x10^3/uL (4.0-11.0) Red Blood Count 5.62 x10^6/uL (4.30-5.70) Hemoglobin 15.6 g/dL (13.0-17.5) Hematocrit 45.1 % (39.0-53.0) Mean Corpuscular Volume 80 fL (79-100) Mean Corpuscular Hemoglobin 28 pg (25-35) Mean Corpuscular Hemoglobin Concent 35 g/dL (31-37) Red Cell Distribution Width 14.4 % (11.5-14.5) Platelet Count 230 x10^3/uL (140-400) Neutrophils (%) (Auto) 62 % (31-73) Lymphocytes (%) (Auto) 19 % (24-48) Monocytes (%) (Auto) 10 % (0-9) Eosinophils (%) (Auto) 9 % (0-3) Basophils (%) (Auto) 1 % (0-3) Neutrophils # (Auto) 4.4 x10^3uL (1.8-7.7) Lymphocytes # (Auto) 1.3 x10^3/uL (1.0-4.8) Monocytes # (Auto) 0.7 x10^3/uL (0.0-1.1) Eosinophils # (Auto) 0.6 x10^3/uL (0.0-0.7) Basophils # (Auto) 0.1 x10^3/uL (0.0-0.2) D-Dimer (Dolly) 0.30 ug/mlFEU (0.00-0.50) Sodium Level 139 mmol/L (136-145) Potassium Level 3.1 mmol/L (3.5-5.1) Chloride Level 105 mmol/L (98-107) Carbon Dioxide Level 26 mmol/L (21-32) Anion Gap 8 (6-14) Blood Urea Nitrogen 9 mg/dL (8-26) Creatinine 1.2 mg/dL (0.7-1.3) Estimated GFR (Cockcroft-Gault) 60.2 BUN/Creatinine Ratio 8 (6-20) Glucose Level 121 mg/dL (70-99) Lactic Acid Level 3.0 mmol/L (0.4-2.0) 2.9 mmol/L (0.4-2.0) Calcium Level 9.5 mg/dL (8.5-10.1) Magnesium Level 1.9 mg/dL (1.8-2.4) Total Bilirubin 0.8 mg/dL (0.2-1.0) Aspartate Amino Transf (AST/SGOT) 16 U/L (15-37) Alanine Aminotransferase (ALT/SGPT) 37 U/L (16-63) Alkaline Phosphatase 82 U/L (46-116) Creatine Kinase 85 U/L (39-308) Creatine Kinase MB (Mass) 0.6 ng/mL (0.0-3.6) Creatine Kinase MB Relative Index 0.7 % (0-4) Troponin I Quantitative < 0.017 ng/mL (0.000-0.055) < 0.017 ng/mL (0.000-0.055) Total Protein 8.1 g/dL (6.4-8.2) Albumin 3.7 g/dL (3.4-5.0) Albumin/Globulin Ratio 0.8 (1.0-1.7) Urine Collection Type Unknown Urine Color Yellow Urine Clarity Clear Urine pH 6.5 Urine Specific [place] 1.015 Urine Protein Negative mg/dL (NEG-TRACE) Urine Glucose (UA) Negative mg/dL (NEG) Urine Ketones (Stick) Negative mg/dL (NEG) Urine Blood Negative (NEG) Urine Nitrite Negative (NEG) Urine Bilirubin Negative (NEG) Urine Urobilinogen Dipstick 0.2 mg/dL (0.2 mg/dL) Urine Leukocyte Esterase Negative (NEG) Urine RBC Occ /HPF (0-2) Urine WBC Occ /HPF (0-4) Urine Squamous Epithelial Cells Occ /LPF Urine Bacteria Few /HPF (0-FEW) Urine Mucus Slight /LPF Influenza Type A Antigen Negative (NEGATIVE) Influenza Type B Antigen Negative (NEGATIVE) Test 10/01/18 09:05 10/01/18 12:00 10/01/18 15:00 10/01/18 20:30 Lactic Acid Level 3.9 mmol/L (0.4-2.0) 4.6 mmol/L (0.4-2.0) 5.3 mmol/L (0.4-2.0) 3.7 mmol/L (0.4-2.0) Troponin I Quantitative < 0.017 ng/mL (0.000-0.055) Test 10/02/18 07:04 Lactic Acid Level 2.9 mmol/L (0.4-2.0) Laboratory Tests Test 10/01/18 09:05 10/01/18 12:00 10/01/18 15:00 10/01/18 20:30 Lactic Acid Level 3.9 mmol/L (0.4-2.0) 4.6 mmol/L (0.4-2.0) 5.3 mmol/L (0.4-2.0) 3.7 mmol/L (0.4-2.0) Troponin I Quantitative < 0.017 ng/mL (0.000-0.055) Test 10/02/18 07:04 Lactic Acid Level 2.9 mmol/L (0.4-2.0) Medications Active Scripts Medications Dose Route/Sig Max Daily Dose Days Date Category Prednisone 50 Mg Tablet 1 Tab PO DAILY 09/12/18 Rx Keflex (Cephalexin) 500 Mg Capsule 1 Cap PO TID 09/12/18 Rx Naproxen 500 Mg Tablet 1 Tab PO BID PRN 08/21/18 Rx Orphenadrine Citrate 100 Mg Tablet.er 1 Tab PO BID PRN 08/21/18 Rx Prednisone 20 Mg Tablet 2 Tab PO DAILY 05/20/18 Rx Flomax (Tamsulosin Hcl) 0.4 Mg Cap.er.24h 1 Cap PO DAILY 05/20/18 Rx Losartan-Hctz 100-12.5 Mg Tab (Losartan/Hydrochlorothiazide) 1 Each Tablet 1 Tab PO DAILY 04/30/18 Rx Amlodipine Besylate 10 Mg Tablet 10 Mg PO DAILY 04/30/18 Rx Hydrochlorothiazide Tablet (Hydrochlorothiazide) 25 Mg Tablet 1 Tab PO DAILY 04/30/18 Rx Azithromycin Tablet (Azithromycin) 250 Mg Tablet 250 Mg PO DAILY 04/30/18 Rx Prednisone 50 Mg Tablet 1 Tab PO DAILY 04/30/18 Rx Proair Hfa Inhaler (Albuterol Sulfate) 8.5 Gm Hfa.aer.ad 1 Puff INH PRN Q6HRS PRN 04/24/18 Rx Zithromax (Azithromycin) 250 Mg Tablet 1 Pkg PO UD 04/24/18 Rx Prednisone 50 Mg Tablet 1 Tab PO DAILY 04/24/18 Rx Impression . IMPRESSION: 1. Dyspnea secondary to acute exacerbation of asthma, acute bronchitis 2. Acute exacerbation of asthma. 3. Acute bronchitis. 4. Lactic acidosis SEC TO INCREASE WORK OF BREATHING 5. Hypokalemia. Plan . IMPROVING CONTINUE THE SAME HOME SOON NEVILLE PORTER MD Oct 02, 2018 08:57
--- NOTE | 2018-10-02 10:02 | PDOC ---
Infectious Disease Note Vital Sign Vital Signs Vital Signs Date Time Temp Pulse Resp B/P (MAP) Pulse Ox O2 Delivery O2 Flow Rate FiO2 10/02/18 08:30 76 103/60 10/02/18 07:00 16 96 10/02/18 03:16 97.8 Room Air 97.8 Labs Lab Laboratory Tests Test 10/01/18 12:00 10/01/18 15:00 10/01/18 20:30 10/02/18 07:04 Lactic Acid Level 4.6 mmol/L (0.4-2.0) 5.3 mmol/L (0.4-2.0) 3.7 mmol/L (0.4-2.0) 2.9 mmol/L (0.4-2.0) Micro Microbiology 10/01/18 Blood Culture - Preliminary, Resulted NO GROWTH AFTER 1 DAY Objective Assessment Lactic acid - better Asthma Exacerbation Fecal retention Plan Plan of Care AF/WBC normal - lactic is better does not appear septic Cont Steroids and abx per pulmonary Please call with questions Thank you # [id number] GALILEO JACOB MD Oct 02, 2018 10:02
--- NOTE | 2018-10-02 10:35 | CONS ---
DATE OF CONSULTATION: 10/02/2018 ROOM: 334. REQUESTING PHYSICIAN: Dr. Jenkins. REASON FOR CONSULTATION: Lactic acidosis. HISTORY OF PRESENT ILLNESS: The patient is a 68-year-old gentleman from [facility] who has been in the [place] for 8 years. He lived in [place] for 1 year, but has been in [place] for the last 7 years. He does have a history of asthma and had an exacerbation approximately 3 years ago. He states per the director reactor projects on the phone, on Tuesday he began to get a little short of air and some chest pressure and some soreness in his throat. He used his inhaler, but he continued to become more short of air. He did not have any fevers or chills or sweats. He has no nausea, vomiting, no diarrhea. He denies any rashes or joint aches. He has some chronic issues with some previous urinary retention for which he is taking medication for. He presented to [facility]. He has been afebrile since his presentation. White blood cell count was 7.2 with a normal differential. Lactic acid increased to 3.5, but has he been placed on steroids and he has been placed on Zosyn. Chest x-ray was obtained, showed no radiographic abnormality, does have some COPD. A KUB was performed, also showed he has some fecal retention. He has been admitted to the hospital. The patient was sleeping when I arrived. Appeared fairly comfortable. He awakened without any complications. PAST MEDICAL HISTORY: Positive for hypertension, also has a history of previous asthma as well as some urinary retention requiring Kat placement. PAST SURGICAL HISTORY: Negative. REVIEW OF SYSTEMS: Otherwise negative except for mentioned above. SOCIAL HISTORY: Again, he is from [place]. He does not smoke tobacco, but he does chew tobacco. No alcohol, no pets. He has not worked for quite some time. He did do some gardening for a year. He denies any TB. No skin test, no TB exposures. He denies any ill contacts. No construction history. FAMILY HISTORY: Father had breathing problems, also had a brother with diabetes. No cancers, thyroid, hypertension or heart problems. CURRENT MEDICATIONS: Include Zosyn, albuterol, Norvasc, Pulmicort, Flexeril, Colace, hydrochlorothiazide, albuterol, Atrovent, Solu-Medrol, Naprosyn, Flomax. PHYSICAL EXAMINATION: VITAL SIGNS: He has been afebrile, temperature 97.8, pulse 76, respirations 16, blood pressure 103/60, satting 96% on room air. CONSTITUTIONAL: He is pleasant. He is cooperative. He is in no acute distress. He is sitting upright in bed. HEENT: Pupils are equal and reactive. He has normal conjunctivae. NECK: Supple. Good range of motion. LUNGS: Clear to auscultation. HEART: S1, S2. ABDOMEN: Soft, little bit protuberant. No guarding, no rebound. EXTREMITIES: No clubbing, cyanosis or gross edema. SKIN: Warm to touch without signs of rash. NEUROLOGIC: Nonfocal and appropriate. PSYCHIATRIC: Affect is appropriate. Answers questions appropriately via the director reactor projects phone. LABORATORY DATA: White count was 7.2, hemoglobin 15.6, platelets of 230, neutrophils 62, lymphs 19, monos 10, eos were 9. Most recent lactic of 2.9, down from 5.3. Creatinine was 1.2 on arrival. Normal liver function study tests. Glucose was 121 on arrival. Urinalysis appeared to be contaminated, occasional squamous, occasional wbc's, negative nitrite, negative leukocyte esterase. Influenza screen was negative. Radiology reviewed in history of present illness. IMPRESSION: 1. Lactic acidosis, improving. 2. Asthma exacerbation. 3. Fecal retention. RECOMMENDATIONS: He is afebrile. White blood cell count is normal. Lactic is better. Does not appear septic. Continue steroids, antibiotics per Pulmonary. Please call with questions. Thank you for allowing me to see to participate in the patient's care. Should you have any further questions, please do not hesitate to contact me. GALILEO JACOB MD DR: MARIYA/shaggy JOB#: [id number] / [id number]
[2018-10-02 11:00] VITALS: BP 112/66
--- NOTE | 2018-10-02 11:37 | PDOC ---
PROGRESS NOTES Chief Complaint Chief Complaint CC: Sepsis Bronchitis History of Present Illness History of Present Illness Patient was seen and examined. Sitting comfortably in his chair. No new acute complaints. Vitals Vitals Vital Signs Date Time Temp Pulse Resp B/P (MAP) Pulse Ox O2 Delivery O2 Flow Rate FiO2 10/02/18 08:30 76 103/60 10/02/18 08:10 Room Air 10/02/18 07:00 16 96 10/02/18 03:16 97.8 97.8 Physical Exam General: Alert, No acute distress, mild distress, Other (tachypneic, audible wheezing) Heart: Regular rate Lungs: Clear Abdomen: Soft, Other (normoactive bowel sounds tender, tympanitic-no acute abdomen) Extremities: No clubbing, No cyanosis, No edema, Normal pulses, No tenderness/ swelling Skin: No rashes, No breakdown, No significant lesion Labs LABS Laboratory Tests Test 10/01/18 12:00 10/01/18 15:00 10/01/18 20:30 10/02/18 07:04 Lactic Acid Level 4.6 mmol/L (0.4-2.0) 5.3 mmol/L (0.4-2.0) 3.7 mmol/L (0.4-2.0) 2.9 mmol/L (0.4-2.0) Review of Systems Review of Systems Heart: denies chest pain Integument: denies new rashes Assessment and Plan Assessmemt and Plan Assessment: Bronchitis Lactic acidosis Asthma Exacerbation Fecal retention Plan: Continue Antibiotics D/C when clear with subspecialists Continue steroids per pulm PT/OT Monitor for culture growth labs Appreciate subspecialty input Comment Review of Relevant I have reviewed the following items balta (where applicable) has been applied. Labs Laboratory Tests Test 10/01/18 01:00 10/01/18 01:20 10/01/18 02:17 10/01/18 06:10 White Blood Count 7.2 x10^3/uL (4.0-11.0) Red Blood Count 5.62 x10^6/uL (4.30-5.70) Hemoglobin 15.6 g/dL (13.0-17.5) Hematocrit 45.1 % (39.0-53.0) Mean Corpuscular Volume 80 fL (79-100) Mean Corpuscular Hemoglobin 28 pg (25-35) Mean Corpuscular Hemoglobin Concent 35 g/dL (31-37) Red Cell Distribution Width 14.4 % (11.5-14.5) Platelet Count 230 x10^3/uL (140-400) Neutrophils (%) (Auto) 62 % (31-73) Lymphocytes (%) (Auto) 19 % (24-48) Monocytes (%) (Auto) 10 % (0-9) Eosinophils (%) (Auto) 9 % (0-3) Basophils (%) (Auto) 1 % (0-3) Neutrophils # (Auto) 4.4 x10^3uL (1.8-7.7) Lymphocytes # (Auto) 1.3 x10^3/uL (1.0-4.8) Monocytes # (Auto) 0.7 x10^3/uL (0.0-1.1) Eosinophils # (Auto) 0.6 x10^3/uL (0.0-0.7) Basophils # (Auto) 0.1 x10^3/uL (0.0-0.2) D-Dimer (Dolly) 0.30 ug/mlFEU (0.00-0.50) Sodium Level 139 mmol/L (136-145) Potassium Level 3.1 mmol/L (3.5-5.1) Chloride Level 105 mmol/L (98-107) Carbon Dioxide Level 26 mmol/L (21-32) Anion Gap 8 (6-14) Blood Urea Nitrogen 9 mg/dL (8-26) Creatinine 1.2 mg/dL (0.7-1.3) Estimated GFR (Cockcroft-Gault) 60.2 BUN/Creatinine Ratio 8 (6-20) Glucose Level 121 mg/dL (70-99) Lactic Acid Level 3.0 mmol/L (0.4-2.0) 2.9 mmol/L (0.4-2.0) Calcium Level 9.5 mg/dL (8.5-10.1) Magnesium Level 1.9 mg/dL (1.8-2.4) Total Bilirubin 0.8 mg/dL (0.2-1.0) Aspartate Amino Transf (AST/SGOT) 16 U/L (15-37) Alanine Aminotransferase (ALT/SGPT) 37 U/L (16-63) Alkaline Phosphatase 82 U/L (46-116) Creatine Kinase 85 U/L (39-308) Creatine Kinase MB (Mass) 0.6 ng/mL (0.0-3.6) Creatine Kinase MB Relative Index 0.7 % (0-4) Troponin I Quantitative < 0.017 ng/mL (0.000-0.055) < 0.017 ng/mL (0.000-0.055) Total Protein 8.1 g/dL (6.4-8.2) Albumin 3.7 g/dL (3.4-5.0) Albumin/Globulin Ratio 0.8 (1.0-1.7) Urine Collection Type Unknown Urine Color Yellow Urine Clarity Clear Urine pH 6.5 Urine Specific [place] 1.015 Urine Protein Negative mg/dL (NEG-TRACE) Urine Glucose (UA) Negative mg/dL (NEG) Urine Ketones (Stick) Negative mg/dL (NEG) Urine Blood Negative (NEG) Urine Nitrite Negative (NEG) Urine Bilirubin Negative (NEG) Urine Urobilinogen Dipstick 0.2 mg/dL (0.2 mg/dL) Urine Leukocyte Esterase Negative (NEG) Urine RBC Occ /HPF (0-2) Urine WBC Occ /HPF (0-4) Urine Squamous Epithelial Cells Occ /LPF Urine Bacteria Few /HPF (0-FEW) Urine Mucus Slight /LPF Influenza Type A Antigen Negative (NEGATIVE) Influenza Type B Antigen Negative (NEGATIVE) Test 10/01/18 09:05 10/01/18 12:00 10/01/18 15:00 10/01/18 20:30 Lactic Acid Level 3.9 mmol/L (0.4-2.0) 4.6 mmol/L (0.4-2.0) 5.3 mmol/L (0.4-2.0) 3.7 mmol/L (0.4-2.0) Troponin I Quantitative < 0.017 ng/mL (0.000-0.055) Test 10/02/18 07:04 Lactic Acid Level 2.9 mmol/L (0.4-2.0) Laboratory Tests Test 10/01/18 12:00 10/01/18 15:00 10/01/18 20:30 10/02/18 07:04 Lactic Acid Level 4.6 mmol/L (0.4-2.0) 5.3 mmol/L (0.4-2.0) 3.7 mmol/L (0.4-2.0) 2.9 mmol/L (0.4-2.0) Microbiology 10/01/18 Blood Culture - Preliminary, Resulted NO GROWTH AFTER 1 DAY Medications Current Medications Dexamethasone (Decadron) 10 mg 1X ONCE PO Last administered on 10/01/18at 01:17 ; Start 10/01/18 at 01:00; Stop 10/01/18 at 01:01; Status DC Albuterol/ Ipratropium (Duoneb) 3 ml 1X ONCE NEB Last administered on at 01:26; Start 10/01/18 at 01:00; Stop 10/01/18 at 01:01; Status DC Albuterol/ Ipratropium (Duoneb) 3 ml 1X ONCE NEB Last administered on at 01:37; Start 10/01/18 at 01:45; Stop 10/01/18 at 01:46; Status DC Piperacillin Sod/ Tazobactam Sod 4.5 gm/Sodium Chloride 100 ml @ 200 mls/hr 1X ONCE IV Last administered on 10/01/18at 03:16; Start 10/01/18 at 03:00; Stop 10/01/18 at 03:29; Status DC Levofloxacin/ Dextrose 150 ml @ 100 mls/hr 1X ONCE IV Last administered on at 03:17; Start 10/01/18 at 03:30; Stop 10/01/18 at 04:59; Status DC Vancomycin HCl 2 gm/Sodium Chloride 500 ml @ 250 mls/hr 1X ONCE IV Last administered on 10/01/18at 03:55; Start 10/01/18 at 03:30; Stop 10/01/18 at 05:29 ; Status DC Sodium Chloride 1,000 ml @ 1,000 mls/hr 1X ONCE IV Last administered on at 02:56; Start 10/01/18 at 03:00; Stop 10/01/18 at 03:59; Status DC Sodium Chloride 1,000 ml @ 1,000 mls/hr 1X ONCE IV Last administered on at 02:56; Start 10/01/18 at 04:00; Stop 10/01/18 at 04:59; Status DC Potassium Chloride (Klor-Con) 40 meq 1X ONCE PO Last administered on at 03:14; Start 10/01/18 at 03:15; Stop 10/01/18 at 03:16; Status DC Fentanyl Citrate (Fentanyl 2ml Vial) 50 mcg 1X ONCE IV Last administered on at 03:15; Start 10/01/18 at 03:15; Stop 10/01/18 at 03:16; Status DC Albuterol/ Ipratropium (Duoneb) 3 ml 1X ONCE NEB ; Start 10/01/18 at 03:15; Stop 10/01/18 at 03:16; Status DC Fentanyl Citrate (Fentanyl 2ml Vial) 100 mcg STK-MED ONCE .ROUTE ; Start at 03:10; Stop 10/01/18 at 03:12; Status DC Ondansetron HCl (Zofran) 4 mg PRN Q8HRS PRN IV NAUSEA/VOMITING; Start 10/01/18 at 03:15; Stop 10/01/18 at 08:09; Status DC Acetaminophen (Tylenol) 650 mg PRN Q4HRS PRN PO FEVER Last administered on 10/01at 14:05; Start 10/01/18 at 03:15; Stop 10/02/18 at 03:14; Status DC Albuterol/ Ipratropium (Duoneb) 3 ml RTQID NEB Last administered on 10/02/18at 08:17; Start 10/01/18 at 08:00; Stop 10/02/18 at 07:59; Status DC Amlodipine Besylate (Norvasc) 10 mg DAILY PO Last administered on 10/02/18at 08: 30; Start 10/01/18 at 09:00 Hydrochlorothiazide (Microzide) 37.5 mg DAILY PO Last administered on at 08:30; Start 10/01/18 at 09:00 Tamsulosin HCl (Flomax) 0.4 mg DAILY PO Last administered on 10/02/18at 08:30; Start 10/01/18 at 09:00 Non-Formulary Medication (Losartan/ Hydrochlorothiazide (Losartan-Hctz 100-12.5 Mg Tab)) 1 tab DAILY PO ; Start 10/01/18 at 09:00; Status UNV Naproxen (Naprosyn) 500 mg PRN BID PRN PO PAIN Last administered on 10/02/18at 06:06; Start 10/01/18 at 08:00 Losartan Potassium (Cozaar) 100 mg DAILY PO Last administered on 10/02/18at 08: 30; Start 10/01/18 at 09:00 Ondansetron HCl (Zofran) 4 mg PRN Q6HRS PRN IV NAUSEA/VOMITING; Start 10/01/18 at 08:15 Guaifenesin (Robitussin Dm) 10 ml PRN Q6HRS PRN PO COUGH Last administered on at 09:28; Start 10/01/18 at 08:15 Piperacillin Sod/ Tazobactam Sod (Zosyn Per Pharmacy) 1 each PRN DAILY PRN [facility] SEE COMMENTS; Start 10/01/18 at 08:15 Albuterol Sulfate (Ventolin Neb Soln) 2.5 mg PRN Q6HRS PRN INH SHORTNESS OF BREATH; Start 10/01/18 at 08:15 Non-Formulary Medication (Orphenadrine Citrate ) 1 tab BID PRN PO MUSCLE PAIN; Start 10/01/18 at 08:15; Status UNV Piperacillin Sod/ Tazobactam Sod 3.375 gm/Sodium Chloride 50 ml @ 100 mls/hr Q6HRS IV Last administered on 10/02/18at 06:07; Start 10/01/18 at 09:00 Methylprednisolone Sodium Succinate (SOLU-Medrol 40MG VIAL) 40 mg Q8HRS IV Last administered on 10/02/18at 06:06; Start 10/01/18 at 09:15 Budesonide (Pulmicort) 0.5 mg RTBID NEB Last administered on 10/02/18at 08:15; Start 10/01/18 at 09:30 Lactobacillus Rhamnosus (Culturelle) 1 cap BID PO Last administered on at 08:30; Start 10/01/18 at 21:00 Cyclobenzaprine HCl (Flexeril) 10 mg 1X ONCE PO Last administered on at 11:15; Start 10/01/18 at 10:00; Stop 10/01/18 at 10:01; Status DC Cyclobenzaprine HCl (Flexeril) 10 mg PRN Q6HRS PRN PO MUSCLE SPASMS Last administered on 10/02/18at 06:06; Start 10/01/18 at 10:00 Ketorolac Tromethamine (Toradol 15mg Vial) 15 mg PRN Q6HRS PRN IV PAIN Last administered on 10/01/18at 14:05; Start 10/01/18 at 10:00; Stop 10/06/18 at 09:59 Magnesium Hydroxide (Milk Of Magnesia) 2,400 mg 1X ONCE PO Last administered on 10/01/18at 11:14; Start 10/01/18 at 10:00; Stop 10/01/18 at 10:01; Status DC Magnesium Hydroxide (Milk Of Magnesia) 2,400 mg PRN DAILY PRN PO CONSTIPATION; Start 10/01/18 at 10:00 Polyethylene Glycol (miraLAX PACKET) 17 gm DAILY PO Last administered on at 08:30; Start 10/01/18 at 10:00 Docusate Sodium (Colace) 100 mg DAILY PO Last administered on 10/02/18at 08:30; Start 10/01/18 at 10:00 Sodium Chloride 1,000 ml @ 100 mls/hr 1X ONCE IV Last administered on at 14:30; Start 10/01/18 at 14:30; Stop 10/02/18 at 00:29; Status DC Sodium Chloride 1,000 ml @ 100 mls/hr Q10H IV Last administered on 10/01/18at 21:13; Start 10/01/18 at 21:00 Albuterol/ Ipratropium (Duoneb) 3 ml RTQID NEB ; Start 10/02/18 at 12:00 Active Scripts Active Prednisone 50 Mg Tablet 1 Tab PO DAILY Keflex (Cephalexin) 500 Mg Capsule 1 Cap PO TID Naproxen 500 Mg Tablet 1 Tab PO BID PRN Orphenadrine Citrate 100 Mg Tablet.er 1 Tab PO BID PRN Prednisone 20 Mg Tablet 2 Tab PO DAILY Flomax (Tamsulosin Hcl) 0.4 Mg Cap.er.24h 1 Cap PO DAILY Losartan-Hctz 100-12.5 Mg Tab (Losartan/Hydrochlorothiazide) 1 Each Tablet 1 Tab PO DAILY Amlodipine Besylate 10 Mg Tablet 10 Mg PO DAILY Hydrochlorothiazide Tablet (Hydrochlorothiazide) 25 Mg Tablet 1 Tab PO DAILY Azithromycin Tablet (Azithromycin) 250 Mg Tablet 250 Mg PO DAILY Prednisone 50 Mg Tablet 1 Tab PO DAILY Proair Hfa Inhaler (Albuterol Sulfate) 8.5 Gm Hfa.aer.ad 1 Puff INH PRN Q6HRS PRN Zithromax (Azithromycin) 250 Mg Tablet 1 Pkg PO UD Prednisone 50 Mg Tablet 1 Tab PO DAILY Vitals/I & O Vital Sign - Last 24 Hours 10/01/18 10/01/18 10/01/18 10/01/18 14:15 16:22 19:00 19:51 Temp 97.9 97.4 97.9 97.4 Pulse 105 105 Resp 24 20 B/P (MAP) 114/75 (88) 113/72 (86) Pulse Ox 97 98 96 O2 Delivery Room Air Room Air Room Air Room Air 10/01/18 10/01/18 10/01/18 10/02/18 20:26 20:33 23:14 03:16 Temp 97.5 97.8 97.5 97.8 Pulse 94 102 Resp 20 20 B/P (MAP) 104/67 (79) 100/68 (79) Pulse Ox 98 98 93 93 O2 Delivery Room Air Room Air Room Air Room Air 10/02/18 10/02/18 10/02/18 10/02/18 07:00 08:10 08:30 08:30 Pulse 76 76 76 Resp 16 B/P (MAP) 103/60 (74) 103/60 103/60 Pulse Ox 96 O2 Delivery Room Air Intake and Output 10/01/18 10/01/18 10/02/18 15:01 23:01 07:01 Intake Total 280 ml 50 ml Output Total 600 ml Balance 280 ml -550 ml MIRNA KAUR III DO Oct 02, 2018 11:37
[2018-10-02] MEDS: IV NORMAL SALINE 1000ML BAG 1,000 ML IV SCH ×2 (13:48→23:57)
[2018-10-02 15:00] VITALS: BP 105/70
[2018-10-02 19:00] VITALS: BP 118/81
[2018-10-02] MEDS: DOXYCYCLINE HYCLATE 100 MG TABLET PO SCH (20:47)
[2018-10-02 23:00] VITALS: BP 110/75
[2018-10-03 03:00] VITALS: BP 110/68
[2018-10-03] MEDS: IV NORMAL SALINE 1000ML BAG 1,000 ML IV SCH ×2 (03:00→09:58)
[2018-10-03 07:00] VITALS: BP 115/70
--- NOTE | 2018-10-03 08:34 | NUR ---
SW following pt for anticipated dc needs. Chart reviewed, ANASTASIIA RN, and PT/OT. Pt lives at home with family and is on Room air. PT recommends HH and OT recommends Acute rehab. Spoke with Jose Alfredo at PT and Pt can dc home with home health services. Pt will also might need a walker upon. SW will set up HH if ordered by Physician. SW will continue to follow.
[2018-10-03] MEDS: BUDESONIDE 0.5 MG/2 ML NEBU. NEB SCH (08:35)
[2018-10-03] MEDS: IPRATRPIUM/ALBUTEROL 0.5/2.5MG 3 ML NEBU. NEB SCH ×2 (08:35→11:51)
[2018-10-03] MEDS: LACTOBACILLUS RHAMNOSUS GG 1 CAPSULE. PO SCH (08:44)
[2018-10-03] MEDS: hydroCHLOROthiazide 12.5 MG CAPSULE PO SCH (08:44)
[2018-10-03] MEDS: TAMSULOSIN 0.4 MG CAP.ER.24H. PO SCH (08:45)
[2018-10-03] MEDS: amLODIPine BESYLATE 10 MG TABLET PO SCH (08:45)
[2018-10-03] MEDS: LOSARTAN POTASSIUM 50 MG TABLET. PO SCH (08:45)
[2018-10-03] MEDS: DOCUSATE SODIUM 100 MG CAPSULE. PO SCH (08:45)
[2018-10-03] MEDS: POLYETHYLENE GLYCOL 3350 17 GM PACKET. PO SCH (08:45)
--- NOTE | 2018-10-03 08:51 | PDOC ---
PULMONARY PROGRESS NOTES Subjective PT WITH NO SIGH OF DISTRESS Vitals Vital Signs Date Time Temp Pulse Resp B/P (MAP) Pulse Ox O2 Delivery O2 Flow Rate FiO2 10/03/18 08:35 97 Room Air 10/03/18 07:00 97.4 66 22 115/70 (85) 97.4 General: Alert Lungs: Crackles Cardiovascular: S1, S2 Abdomen: Soft, Non-tender Neuro Exam: Alert Extremities: No Edema Skin: Warm Labs Laboratory Tests Test 10/01/18 09:05 10/01/18 12:00 10/01/18 15:00 10/01/18 20:30 Lactic Acid Level 3.9 mmol/L (0.4-2.0) 4.6 mmol/L (0.4-2.0) 5.3 mmol/L (0.4-2.0) 3.7 mmol/L (0.4-2.0) Troponin I Quantitative < 0.017 ng/mL (0.000-0.055) Test 10/02/18 07:04 10/02/18 11:15 Lactic Acid Level 2.9 mmol/L (0.4-2.0) 3.9 mmol/L (0.4-2.0) Laboratory Tests Test 10/02/18 11:15 Lactic Acid Level 3.9 mmol/L (0.4-2.0) Medications Active Scripts Medications Dose Route/Sig Max Daily Dose Days Date Category Prednisone 50 Mg Tablet 1 Tab PO DAILY 09/12/18 Rx Keflex (Cephalexin) 500 Mg Capsule 1 Cap PO TID 09/12/18 Rx Naproxen 500 Mg Tablet 1 Tab PO BID PRN 08/21/18 Rx Orphenadrine Citrate 100 Mg Tablet.er 1 Tab PO BID PRN 08/21/18 Rx Prednisone 20 Mg Tablet 2 Tab PO DAILY 05/20/18 Rx Flomax (Tamsulosin Hcl) 0.4 Mg Cap.er.24h 1 Cap PO DAILY 05/20/18 Rx Losartan-Hctz 100-12.5 Mg Tab (Losartan/Hydrochlorothiazide) 1 Each Tablet 1 Tab PO DAILY 04/30/18 Rx Amlodipine Besylate 10 Mg Tablet 10 Mg PO DAILY 04/30/18 Rx Hydrochlorothiazide Tablet (Hydrochlorothiazide) 25 Mg Tablet 1 Tab PO DAILY 04/30/18 Rx Azithromycin Tablet (Azithromycin) 250 Mg Tablet 250 Mg PO DAILY 04/30/18 Rx Prednisone 50 Mg Tablet 1 Tab PO DAILY 04/30/18 Rx Proair Hfa Inhaler (Albuterol Sulfate) 8.5 Gm Hfa.aer.ad 1 Puff INH PRN Q6HRS PRN 04/24/18 Rx Zithromax (Azithromycin) 250 Mg Tablet 1 Pkg PO UD 04/24/18 Rx Prednisone 50 Mg Tablet 1 Tab PO DAILY 04/24/18 Rx Impression . IMPRESSION: 1. Dyspnea secondary to acute exacerbation of asthma, acute bronchitis 2. Acute exacerbation of asthma. 3. Acute bronchitis. 4. Lactic acidosis SEC TO INCREASE WORK OF BREATHING 5. Hypokalemia. Plan . IMPROVING CONTINUE THE SAME HOME SOON NEVILLE PORTER MD Oct 03, 2018 08:51
[2018-10-03] MEDS: NAPROXEN 500 MG TABLET PO PRN (08:56)
[2018-10-03] MEDS: DOXYCYCLINE HYCLATE 100 MG TABLET PO SCH (08:56)
[2018-10-03] MEDS ORDERED: predniSONE 20 MG TABLET PO SCH (09:00)
[2018-10-03] MEDS: CYCLOBENZAPRINE 10 MG TABLET. PO PRN (10:52)
[2018-10-03 11:00] VITALS: BP 112/75
--- NOTE | 2018-10-03 12:02 | PDOC ---
PROGRESS NOTES Chief Complaint Chief Complaint CC: Sepsis Bronchitis History of Present Illness History of Present Illness Patient was seen and examined. Sitting comfortably in his chair. No new acute complaints. Spoke to daughter on the phone about possible discharge home today. Vitals Vitals Vital Signs Date Time Temp Pulse Resp B/P (MAP) Pulse Ox O2 Delivery O2 Flow Rate FiO2 10/03/18 11:51 98 Room Air 10/03/18 08:45 66 115/70 10/03/18 07:00 97.4 22 97.4 Physical Exam General: Alert, No acute distress, mild distress, Other (tachypneic, audible wheezing) Heart: Regular rate Lungs: Clear, Crackles Abdomen: Soft, Other (normoactive bowel sounds tender, tympanitic-no acute abdomen) Extremities: No clubbing, No cyanosis, No edema, Normal pulses, No tenderness/ swelling Skin: No rashes, No breakdown, No significant lesion Review of Systems Review of Systems Heart: denies chest pain Lungs: denies soa Integument: denies rashes Assessment and Plan Assessmemt and Plan Assessment: Sepsis Bronchitis Asthma Exacerbation Hypokalemia Plan: Discharge disposition pending Possible D/C home today Home antibiotics PT/OT Appreciate subspecialty input Comment Review of Relevant I have reviewed the following items balta (where applicable) has been applied. Labs Laboratory Tests Test 10/01/18 15:00 10/01/18 20:30 10/02/18 07:04 10/02/18 11:15 Lactic Acid Level 5.3 mmol/L (0.4-2.0) 3.7 mmol/L (0.4-2.0) 2.9 mmol/L (0.4-2.0) 3.9 mmol/L (0.4-2.0) Microbiology 10/01/18 Blood Culture - Preliminary, Resulted NO GROWTH AFTER 2 DAYS Medications Current Medications Dexamethasone (Decadron) 10 mg 1X ONCE PO Last administered on 10/01/18at 01:17 ; Start 10/01/18 at 01:00; Stop 10/01/18 at 01:01; Status DC Albuterol/ Ipratropium (Duoneb) 3 ml 1X ONCE NEB Last administered on at 01:26; Start 10/01/18 at 01:00; Stop 10/01/18 at 01:01; Status DC Albuterol/ Ipratropium (Duoneb) 3 ml 1X ONCE NEB Last administered on at 01:37; Start 10/01/18 at 01:45; Stop 10/01/18 at 01:46; Status DC Piperacillin Sod/ Tazobactam Sod 4.5 gm/Sodium Chloride 100 ml @ 200 mls/hr 1X ONCE IV Last administered on 10/01/18at 03:16; Start 10/01/18 at 03:00; Stop 10/01/18 at 03:29; Status DC Levofloxacin/ Dextrose 150 ml @ 100 mls/hr 1X ONCE IV Last administered on at 03:17; Start 10/01/18 at 03:30; Stop 10/01/18 at 04:59; Status DC Vancomycin HCl 2 gm/Sodium Chloride 500 ml @ 250 mls/hr 1X ONCE IV Last administered on 10/01/18at 03:55; Start 10/01/18 at 03:30; Stop 10/01/18 at 05:29 ; Status DC Sodium Chloride 1,000 ml @ 1,000 mls/hr 1X ONCE IV Last administered on at 02:56; Start 10/01/18 at 03:00; Stop 10/01/18 at 03:59; Status DC Sodium Chloride 1,000 ml @ 1,000 mls/hr 1X ONCE IV Last administered on at 02:56; Start 10/01/18 at 04:00; Stop 10/01/18 at 04:59; Status DC Potassium Chloride (Klor-Con) 40 meq 1X ONCE PO Last administered on at 03:14; Start 10/01/18 at 03:15; Stop 10/01/18 at 03:16; Status DC Fentanyl Citrate (Fentanyl 2ml Vial) 50 mcg 1X ONCE IV Last administered on at 03:15; Start 10/01/18 at 03:15; Stop 10/01/18 at 03:16; Status DC Albuterol/ Ipratropium (Duoneb) 3 ml 1X ONCE NEB ; Start 10/01/18 at 03:15; Stop 10/01/18 at 03:16; Status DC Fentanyl Citrate (Fentanyl 2ml Vial) 100 mcg STK-MED ONCE .ROUTE ; Start at 03:10; Stop 10/01/18 at 03:12; Status DC Ondansetron HCl (Zofran) 4 mg PRN Q8HRS PRN IV NAUSEA/VOMITING; Start 10/01/18 at 03:15; Stop 10/01/18 at 08:09; Status DC Acetaminophen (Tylenol) 650 mg PRN Q4HRS PRN PO FEVER Last administered on 10/01at 14:05; Start 10/01/18 at 03:15; Stop 10/02/18 at 03:14; Status DC Albuterol/ Ipratropium (Duoneb) 3 ml RTQID NEB Last administered on 10/02/18at 08:17; Start 10/01/18 at 08:00; Stop 10/02/18 at 07:59; Status DC Amlodipine Besylate (Norvasc) 10 mg DAILY PO Last administered on 10/03/18at 08: 45; Start 10/01/18 at 09:00 Hydrochlorothiazide (Microzide) 37.5 mg DAILY PO Last administered on at 08:44; Start 10/01/18 at 09:00 Tamsulosin HCl (Flomax) 0.4 mg DAILY PO Last administered on 10/03/18at 08:45; Start 10/01/18 at 09:00 Non-Formulary Medication (Losartan/ Hydrochlorothiazide (Losartan-Hctz 100-12.5 Mg Tab)) 1 tab DAILY PO ; Start 10/01/18 at 09:00; Status UNV Naproxen (Naprosyn) 500 mg PRN BID PRN PO PAIN Last administered on 10/03/18at 08:56; Start 10/01/18 at 08:00 Losartan Potassium (Cozaar) 100 mg DAILY PO Last administered on 10/03/18at 08: 45; Start 10/01/18 at 09:00 Ondansetron HCl (Zofran) 4 mg PRN Q6HRS PRN IV NAUSEA/VOMITING; Start 10/01/18 at 08:15 Guaifenesin (Robitussin Dm) 10 ml PRN Q6HRS PRN PO COUGH Last administered on at 09:28; Start 10/01/18 at 08:15 Piperacillin Sod/ Tazobactam Sod (Zosyn Per Pharmacy) 1 each PRN DAILY PRN [facility] SEE COMMENTS; Start 10/01/18 at 08:15; Stop 10/02/18 at 19:35; Status DC Albuterol Sulfate (Ventolin Neb Soln) 2.5 mg PRN Q6HRS PRN INH SHORTNESS OF BREATH; Start 10/01/18 at 08:15 Non-Formulary Medication (Orphenadrine Citrate ) 1 tab BID PRN PO MUSCLE PAIN; Start 10/01/18 at 08:15; Status UNV Piperacillin Sod/ Tazobactam Sod 3.375 gm/Sodium Chloride 50 ml @ 100 mls/hr Q6HRS IV Last administered on 10/02/18at 17:49; Start 10/01/18 at 09:00; Stop at 19:35; Status DC Methylprednisolone Sodium Succinate (SOLU-Medrol 40MG VIAL) 40 mg Q8HRS IV Last administered on 10/02/18at 13:55; Start 10/01/18 at 09:15; Stop 10/02/18 at 19:35; Status DC Budesonide (Pulmicort) 0.5 mg RTBID NEB Last administered on 10/03/18at 08:35; Start 10/01/18 at 09:30 Lactobacillus Rhamnosus (Culturelle) 1 cap BID PO Last administered on at 08:44; Start 10/01/18 at 21:00 Cyclobenzaprine HCl (Flexeril) 10 mg 1X ONCE PO Last administered on at 11:15; Start 10/01/18 at 10:00; Stop 10/01/18 at 10:01; Status DC Cyclobenzaprine HCl (Flexeril) 10 mg PRN Q6HRS PRN PO MUSCLE SPASMS Last administered on 10/03/18at 10:52; Start 10/01/18 at 10:00 Ketorolac Tromethamine (Toradol 15mg Vial) 15 mg PRN Q6HRS PRN IV PAIN Last administered on 10/01/18at 14:05; Start 10/01/18 at 10:00; Stop 10/06/18 at 09:59 Magnesium Hydroxide (Milk Of Magnesia) 2,400 mg 1X ONCE PO Last administered on 10/01/18at 11:14; Start 10/01/18 at 10:00; Stop 10/01/18 at 10:01; Status DC Magnesium Hydroxide (Milk Of Magnesia) 2,400 mg PRN DAILY PRN PO CONSTIPATION; Start 10/01/18 at 10:00 Polyethylene Glycol (miraLAX PACKET) 17 gm DAILY PO Last administered on at 08:45; Start 10/01/18 at 10:00 Docusate Sodium (Colace) 100 mg DAILY PO Last administered on 10/03/18 08:45; Start 10/01/18 at 10:00 Sodium Chloride 1,000 ml @ 100 mls/hr 1X ONCE IV Last administered on at 14:30; Start 10/01/18 at 14:30; Stop 10/02/18 at 00:29; Status DC Sodium Chloride 1,000 ml @ 100 mls/hr Q10H IV Last administered on 10/03/18at 09:58; Start 10/01/18 at 21:00 Albuterol/ Ipratropium (Duoneb) 3 ml RTQID NEB Last administered on 10/03/18at 11:51; Start 10/02/18 at 12:00 Doxycycline Hyclate (Vibra-Tab) 100 mg BID PO Last administered on 10/03/18 08 :56; Start 10/02/18 at 21:00 Prednisone (Prednisone) 30 mg DAILY PO Last administered on 10/03/18at 08:45; Start 10/03/18 at 09:00 Active Scripts Active Prednisone 50 Mg Tablet 1 Tab PO DAILY Keflex (Cephalexin) 500 Mg Capsule 1 Cap PO TID Naproxen 500 Mg Tablet 1 Tab PO BID PRN Orphenadrine Citrate 100 Mg Tablet.er 1 Tab PO BID PRN Prednisone 20 Mg Tablet 2 Tab PO DAILY Flomax (Tamsulosin Hcl) 0.4 Mg Cap.er.24h 1 Cap PO DAILY Losartan-Hctz 100-12.5 Mg Tab (Losartan/Hydrochlorothiazide) 1 Each Tablet 1 Tab PO DAILY Amlodipine Besylate 10 Mg Tablet 10 Mg PO DAILY Hydrochlorothiazide Tablet (Hydrochlorothiazide) 25 Mg Tablet 1 Tab PO DAILY Azithromycin Tablet (Azithromycin) 250 Mg Tablet 250 Mg PO DAILY Prednisone 50 Mg Tablet 1 Tab PO DAILY Proair Hfa Inhaler (Albuterol Sulfate) 8.5 Gm Hfa.aer.ad 1 Puff INH PRN Q6HRS PRN Zithromax (Azithromycin) 250 Mg Tablet 1 Pkg PO UD Prednisone 50 Mg Tablet 1 Tab PO DAILY Vitals/I & O Vital Sign - Last 24 Hours 10/02/18 10/02/18 10/02/18 10/02/18 15:00 16:00 19:00 20:00 Temp 97.9 97.9 Pulse 70 84 Resp 16 18 B/P (MAP) 105/70 (82) 118/81 (93) Pulse Ox 96 100 95 O2 Delivery Room Air Room Air Room Air Room Air 10/02/18 10/02/18 10/03/18 10/03/18 20:59 23:00 03:00 07:00 Temp 96.1 97.5 97.4 96.1 97.5 97.4 Pulse 99 96 66 Resp 18 18 22 B/P (MAP) 110/75 (87) 110/68 (82) 115/70 (85) Pulse Ox 99 97 97 95 O2 Delivery Room Air Room Air Room Air 10/03/18 10/03/18 10/03/18 10/03/18 08:15 08:35 08:45 08:45 Pulse 66 66 B/P (MAP) 115/70 115/70 Pulse Ox 97 O2 Delivery Room Air Room Air 10/03/18 11:51 Pulse Ox 98 O2 Delivery Room Air Intake and Output 10/02/18 10/02/18 10/03/18 15:01 23:01 07:01 Intake Total 1050 ml 1170 ml 1300 ml Output Total 1000 ml Balance 1050 ml 170 ml 1300 ml MIRNA KAUR III DO Oct 03, 2018 12:02
--- NOTE | 2018-10-03 13:54 | NUR ---
Discharge Note: NAVARRO KIRBY SHARON Discharge instructions and discharge home medications reviewed with Patient and a copy given. All questions have been answered and understanding verbalized. The following instructions and handouts were given: discharge orders, education, new prescriptions, and follow up recommendations. Discontinued lines and drains: Peripheral IV intact. Patient discharged to Home or Self Care with Family Member via Wheelchair. Off unit by RN
--- NOTE | 2018-10-11 11:38 | DS ---
DATE OF DISCHARGE: 10/03/2018 ADMISSION DIAGNOSES: Severe sepsis, bronchitis, hypokalemia. DISCHARGE DIAGNOSES: Resolving sepsis, resolving bronchitis, resolving hypokalemia. HOSPITAL COURSE: The patient is a pleasant 68-year-old male who presented with bronchitis and sepsis, was hypokalemic. He was admitted. We corrected his electrolytes, gave him IV antibiotics and breathing treatments and oxygen. Consulted Physical Therapy and Occupational Therapy. Over the next few days he did much better. We discharged to home with home health. DISPOSITION: Home with home health. ACTIVITY: As tolerated. DIET: Low sodium. MEDICATIONS: Please see the MRAD. TOTAL TIME: 39 minutes. MIRNA KAUR DO DR: DILCIA/shaggy JOB#: [id number] / [id number]
== END 2018-10-03 13:57 | disposition home health service (06) | DRG 871 ==
LOC: ER 00:45 → 5 NORTH 03:59
PROVIDERS: ADMIT Internal Medicine; ATTEND Internal Medicine
DX: A41.9 Sepsis, unspecified organism (principal); J18.9 Pneumonia, unspecified organism; J45.901 Unspecified asthma with (acute) exacerbation; R65.20 Severe sepsis without septic shock; J20.9 Acute bronchitis, unspecified; E87.6 Hypokalemia; K59.00 Constipation, unspecified; I10 Essential (primary) hypertension; I25.2 Old myocardial infarction; Z82.49 Family history of ischemic heart disease and other diseases of the circulatory system; Z83.3 Family history of diabetes mellitus; Z88.8 Allergy status to other drugs, medicaments and biological substances
CPT/HCPCS: 36415; 71046; 74018; 80053; 81001; 82553; 83605; 83735; 84484; 85025; 85379; 87040; 87449; 87804; 93005; 94640; 94760; 96365; 96368; J1885; J1956; J2543; J2920; J3010; J3370; J7030; J7040; J7512; J7620; J7626; J8540; 97530; 97535; 99285-25; G0378

== ENCOUNTER 2018-12-09 18:40 | Emergency (ER) | payer OTHER ==
[~2018-12-09] VITALS: Ht 180.3 cm; Wt 89.4 kg
[2018-12-09 18:59] VITALS: BP 154/90
--- NOTE | 2018-12-09 19:14 | PHYS DOC ---
Past Medical History Past Medical History: Asthma, Hypertension, [place] Past Surgical History: No Surgical History, Other Additional Past Surgical Histo: PCI Alcohol Use: Occasionally Drug Use: None Adult General Chief Complaint Chief Complaint: LACERATION/AVULSION HPI HPI Patient is a 68 year old male who presents with a right foot laceration. Patient states that he was walking on the sidewalk outside of his home when he tripped and fell, landing on a piece of broken glass from a beer bottle, and sustained a laceration to the dorsal aspect of his right foot. Patient denies sustaining any other injuries. Patient describes the pain as sharp and currently rates it to be 6/10. Denies any alleviating factors and did not take anything for the pain prior to arrival. Reports walking makes the pain worse. Denies radiation of the pain. Patient reports tinging in his right great toe since sustaining the laceration. Patient states that his tetanus is up to date as he last received it one year ago. Denies numbness. Review of Systems Review of Systems Constitutional: Denies fever or chills Eyes: Denies change in visual acuity or eye pain. HENT: Denies nasal congestion or sore throat. Respiratory: Denies cough or shortness of breath. Cardiovascular: Denies chest pain or palpitations GI: Denies abdominal pain or nausea : Denies dysuria or hematuria Musculoskeletal: Denies back pain or joint pain. Integument: Denies rash or skin lesions. Neurologic: Denies headache or focal weakness. Complete systems were reviewed and found to be within normal limits, except as documented in this note. Current Medications Current Medications Current Medications Medications (Trade) Dose Ordered Sig/[facility] Start Time Stop Time Status Last Admin Dose Admin Lidocaine/ Epinephrine (LIDOCAINE 2%-EPI 1:100,000 multi-dose) 20 ml 1X ONCE 12/09/18 19:15 12/09/18 19:16 DC 12/09/18 19:15 20 ML Neomycin/ Polymyxin/ Bacitracin (Triple Antibiotic Ointment) 1 pkt 1X ONCE 12/09/18 21:00 12/09/18 21:01 DC 12/09/18 21:00 1 PKT Allergies Allergies Allergies Coded Allergies Type Severity Reaction Last Updated Verified Iodinated Contrast- Oral and IV Dye Allergy Intermediate 04/24/18 Yes Physical Exam Physical Exam Constitutional: Well developed, well nourished, no acute distress. HENT: Normocephalic, atraumatic, oropharynx moist. Eyes: PERRL, conjunctiva normal. Neck: Normal range of motion, supple. Cardiovascular:Heart rate regular rhythm, no murmur. Distal pulses intact bilaterally. Lungs & Thorax: Bilateral breath sounds clear to auscultation. Abdomen: Soft, no tenderness. Skin: Warm, dry. Back: No tenderness, no CVA tenderness. Extremities: 4cm laceration located on the dorsal aspect of the right foot without any surrounding edema. No obvious foreign body detected. Neurologic: Alert and oriented X3, normal motor function, normal sensory function, no focal deficits noted. Psychologic: Affect normal. Speech normal. Current Patient Data Vital Signs Vital Signs Date Time Temp Pulse Resp B/P (MAP) Pulse Ox O2 Delivery O2 Flow Rate FiO2 12/09/18 18:59 98.0 66 18 154/90 (111) 96 Room Air 98.0 EKG EKG [] Radiology/Procedures Radiology/Procedures PROCEDURE: FOOT RIGHT 3V FOOT RIGHT 3V (AP, oblique, lateral) INDICATION: dorsal foot laceration evaluate for foreign body COMPARISON: None. FINDINGS: No acute fracture or malalignment. Cortical irregularity of the base of the fifth metatarsal may relate to remote injury. Calcaneal enthesophytes. The joint spaces are maintained. Bony mineralization is normal for the patient's age. Soft tissue irregularity along the dorsum of the foot. No radiopaque foreign body. IMPRESSION: Soft tissue irregularity along the dorsum of the foot consistent with known injury. No radiopaque foreign body. Electronically signed by: Nehemiah Hussein MD (12/09/2018 7:37 PM) [facility] Course & Med Decision Making Course & Med Decision Making Patient is a 68 year old male who presents after sustaining a right foot laceration. X-ray ordered due to possibility of foreign body within the wound. Pertinent Imaging studies reviewed. No evidence of foreign body on xray. Laceration was repaired without difficulty. Patient stable for discharge with outpatient follow-up with PCP. Discussed findings and plan with patient and family, who acknowledge understanding and agreement. Dragon Disclaimer Dragon Disclaimer This electronic medical record was generated, in whole or in part, using a voice recognition dictation system. Laceration/Wound Repair Laceration/Wound Repair : Wound's Depth, Shape: superficial Wound Explored: contaminated Anesthesia: Lidocaine w/ Epi (2%) Volume Anesthetic (ccs): 10 Wound Repaired With: sutures Suture Size/Type: 4:0, nylon Number of Sutures: 5 Progress Verbal consent obtained. Time out performed. Hand hygiene utilized. Wound cleaned with ChloraPrep. Anesthesia obtained via a 25-gauge hypodermic needle with 10 mL's of lidocaine 2% with epinephrine. Copious irrigation performed. Wound well approximated with five 4.0 Ethilon sutures. Patient tolerated procedure well and without difficulty. Empiric antibiotic ointment applied prior to sterile dressing. Departure Departure Impression: Primary Impression: Foot laceration Disposition: HOME, SELF-CARE Condition: STABLE Referrals: UNKNOWN PCP NAME (PCP) Patient Instructions: Sutured Wound Care, [id number] Additional Instructions: Do not soak your wound. You may shower. Clean wound daily with soap and water. Change dressing 2 times daily. Use over the counter antibiotic ointment with each dressing change. Sutures need to be removed in 7-10 days. Present to your family doctor or local urgent care for removal. You may also present to the ED but it will be an additional visit/charge. After suture removal you may use Vitamin E ointment to soften the wound and prevent scarring. Use over the counter Tylenol and/or Ibuprofen for pain or discomfort. Problem Qualifiers Primary Impression: Foot laceration Encounter type: initial encounter Laterality: right Qualified Codes: S91.311A - Laceration without foreign body, right foot, initial encounter KENNY IVAN DO Dec 09, 2018 19:14
[2018-12-09] MEDS ORDERED: LIDOCAINE 2%/EPI 1:100,000 20 ML VIAL. IJ ONE (19:15)
--- NOTE | 2018-12-09 19:40 | RAD ---
FOOT RIGHT 3V (AP, oblique, lateral) INDICATION: dorsal foot laceration evaluate for foreign body COMPARISON: None. FINDINGS: No acute fracture or malalignment. Cortical irregularity of the base of the fifth metatarsal may relate to remote injury. Calcaneal enthesophytes. The joint spaces are maintained. Bony mineralization is normal for the patient's age. Soft tissue irregularity along the dorsum of the foot. No radiopaque foreign body. IMPRESSION: Soft tissue irregularity along the dorsum of the foot consistent with known injury. No radiopaque foreign body. Electronically signed by: Nehemiah Hussein MD (12/09/2018 7:37 PM) [facility]
[2018-12-09] MEDS ORDERED: NEOMY/BACITR/POLYMYXIN OINT PACKET. TP ONE (21:00)
== END 2018-12-09 21:16 | disposition home or self-care (01) ==
LOC: ER 18:40
DX: S91.311A Laceration without foreign body, right foot, initial encounter (principal); I10 Essential (primary) hypertension; J45.909 Unspecified asthma, uncomplicated; I25.2 Old myocardial infarction; Z91.041 Radiographic dye allergy status; W01.198A Fall on same level from slipping, tripping and stumbling with subsequent striking against other object, initial encounter; Y93.89 Activity, other specified; Y92.89 Other specified places as the place of occurrence of the external cause; Y99.8 Other external cause status
CPT/HCPCS: 12042; 73630; 99284; J3490

== ENCOUNTER 2019-01-18 18:25 | Emergency (ER) | payer OTHER ==
[~2019-01-18] VITALS: Ht 165.1 cm; Wt 89.4 kg
[2019-01-18 20:03] LABS: BILIRUBIN,URINE NEGATIVE (NEG); CLARITY,URINE CLEAR; COLOR,URINE YELLOW; NITRITE,URINE NEGATIVE (NEG); PH,URINE 5.5; PROTEIN,URINE NEGATIVE (NEG-TRACE); UROBILINOGEN,URINE 0.2 mg/dL (0.2 mg/dL)
[2019-01-18 20:23] LABS: BASO # 0.1 x10^3/uL (0.0-0.2); BASO % 1 % (0-3); EOS # 0.3 x10^3/uL (0.0-0.7); EOS % 5 % (0-3); HEMATOCRIT 48.8 % (39.0-53.0); HEMOGLOBIN 16.5 g/dL (13.0-17.5); LYMPH # 2.2 x10^3/uL (1.0-4.8); LYMPH % 32 % (24-48); MEAN CORPUSCULAR HEMOGLOBIN 27 pg (25-35); MEAN CORPUSCULAR HGB CONC 34 g/dL (31-37); MEAN CORPUSCULAR VOLUME 81 fL (79-100); MONO # 0.8 x10^3/uL (0.0-1.1); MONO % 12 % (0-9); NEUT # 3.4 x10^3uL (1.8-7.7); NEUT % 51 % (31-73); PLATELET COUNT 248 x10^3/uL (140-400); RED BLOOD COUNT 6.06 x10^6/uL (4.30-5.70); WHITE BLOOD COUNT 6.7 x10^3/uL (4.0-11.0)
[2019-01-18 20:25] LABS: BACTERIA,URINE 0 /HPF (0-FEW); RBC,URINE 0 /HPF (0-2); WBC,URINE 0 /HPF (0-4)
[2019-01-18] MEDS ORDERED: ONDANSETRON PF 4 MG/2 ML VIAL. IV ONE (20:30)
[2019-01-18] MEDS ORDERED: fentaNYL PF VIAL 100 MCG/2 ML VIAL IV ONE (20:30)
[2019-01-18 20:31] LABS: CALCIUM 9.6 mg/dL (8.5-10.1); CREATININE 1.3 mg/dL (0.7-1.3); GFR 54.9; POTASSIUM 3.6 mmol/L (3.5-5.1)
[2019-01-18 20:37] LABS: ALBUMIN/GLOBULIN RATIO 1.1 (1.0-1.7); TOTAL BILIRUBIN 1.1 mg/dL (0.2-1.0); TOTAL PROTEIN 7.8 g/dL (6.4-8.2)
--- NOTE | 2019-01-18 20:50 | PHYS DOC ---
Past Medical History Past Medical History: Asthma, Hypertension, [place] Past Surgical History: No Surgical History, Other Additional Past Surgical Histo: PCI Alcohol Use: Occasionally Drug Use: None Adult General Chief Complaint Chief Complaint: HEADACHE HPI HPI Patient is a 68 year old male with history of chronic right shoulder, neck pain and headache who presents with headache and neck pain the past 2 weeks with difficulty sleep for the same. Patient is being treated for this and were evaluated by his PCP as a schedule follow-up appointment in 6 days. Patient states [id number] medications or not able to help with his pain is medically is unable to sleep. Denies fall or injury. Denies radicular symptoms or complaints. Denies extremity weakness or loss of sensation. No history of cancer, night sweats, hemoptysis. No tinnitus, nystagmus, or ataxia. No other acute symptoms or complaints. Patient speaks Peruvian. Translation is assisted by family member. Review of Systems Review of Systems Constitutional: Denies fever or chills [] Eyes: Denies change in visual acuity, redness, or eye pain [] HENT: Denies nasal congestion or sore throat [] Respiratory: Denies cough or shortness of breath [] Cardiovascular: No additional information not addressed in HPI [] GI: Denies abdominal pain, nausea, vomiting, bloody stools or diarrhea [] : Denies dysuria or hematuria [] Musculoskeletal: Denies back pain or joint pain [] Integument: Denies rash or skin lesions [] Neurologic: Denies headache, focal weakness or sensory changes [] Endocrine: Denies polyuria or polydipsia [] All other systems were reviewed and found to be within normal limits, except as documented in this note. Current Medications Current Medications Current Medications Medications (Trade) Dose Ordered Sig/[facility] Start Time Stop Time Status Last Admin Dose Admin Fentanyl Citrate (Fentanyl 2ml Vial) 75 mcg 1X ONCE 01/18/19 20:30 01/18/19 20:59 DC 01/18/19 21:00 75 MCG Ondansetron HCl (Zofran) 4 mg 1X ONCE 01/18/19 20:30 01/18/19 20:59 DC 01/18/19 21:01 4 MG Allergies Allergies Allergies Coded Allergies Type Severity Reaction Last Updated Verified Iodinated Contrast- Oral and IV Dye Allergy Intermediate 04/24/18 Yes Physical Exam Physical Exam Constitutional: Well developed, well nourished, no acute distress, non-toxic appearance. [] HENT: Normocephalic, atraumatic, bilateral external ears normal, oropharynx moist, no oral exudates, nose normal. [] Eyes: PERRLA, EOMI, conjunctiva normal, no discharge. [] Neck: Normal range of motion, no tenderness, supple, paracervical muscle tenderness. no midline step off, swelling. Pain reproduces with rotation and palpation, [] Cardiovascular:Heart rate regular rhythm, no murmur [] Lungs & Thorax: Bilateral breath sounds clear to auscultation [] Abdomen: Bowel sounds normal, soft, no tenderness, no masses, no pulsatile masses. [] Skin: Warm, dry, no erythema, no rash. [] Back: No tenderness, no CVA tenderness. [] Extremities: No tenderness, no cyanosis, no clubbing, ROM intact, no edema. [] Neurologic: Alert and oriented, no focal extremity weakness or loss of sensatio n, normal motor function, normal sensory function, no focal deficits noted. [] Psychologic: Affect normal, judgement normal, mood normal. [] Current Patient Data Vital Signs Vital Signs Date Time Temp Pulse Resp B/P (MAP) Pulse Ox O2 Delivery O2 Flow Rate FiO2 01/18/19 21:00 22 96 Room Air 01/18/19 19:15 97.7 99 135/86 (102) 97.7 Lab Values Laboratory Tests Test 01/18/19 19:35 01/18/19 20:00 Urine Collection Type Unknown Urine Color Yellow Urine Clarity Clear Urine pH 5.5 Urine Specific [place] 1.010 Urine Protein Negative mg/dL (NEG-TRACE) Urine Glucose (UA) Negative mg/dL (NEG) Urine Ketones (Stick) Negative mg/dL (NEG) Urine Blood Negative (NEG) Urine Nitrite Negative (NEG) Urine Bilirubin Negative (NEG) Urine Urobilinogen Dipstick 0.2 mg/dL (0.2 mg/dL) Urine Leukocyte Esterase Negative (NEG) Urine RBC 0 /HPF (0-2) Urine WBC 0 /HPF (0-4) Urine Bacteria 0 /HPF (0-FEW) White Blood Count 6.7 x10^3/uL (4.0-11.0) Red Blood Count 6.06 x10^6/uL (4.30-5.70) H Hemoglobin 16.5 g/dL (13.0-17.5) Hematocrit 48.8 % (39.0-53.0) Mean Corpuscular Volume 81 fL (79-100) Mean Corpuscular Hemoglobin 27 pg (25-35) Mean Corpuscular Hemoglobin Concent 34 g/dL (31-37) Red Cell Distribution Width 14.0 % (11.5-14.5) Platelet Count 248 x10^3/uL (140-400) Neutrophils (%) (Auto) 51 % (31-73) Lymphocytes (%) (Auto) 32 % (24-48) Monocytes (%) (Auto) 12 % (0-9) H Eosinophils (%) (Auto) 5 % (0-3) H Basophils (%) (Auto) 1 % (0-3) Neutrophils # (Auto) 3.4 x10^3uL (1.8-7.7) Lymphocytes # (Auto) 2.2 x10^3/uL (1.0-4.8) Monocytes # (Auto) 0.8 x10^3/uL (0.0-1.1) Eosinophils # (Auto) 0.3 x10^3/uL (0.0-0.7) Basophils # (Auto) 0.1 x10^3/uL (0.0-0.2) Sodium Level 141 mmol/L (136-145) Potassium Level 3.6 mmol/L (3.5-5.1) Chloride Level 103 mmol/L (98-107) Carbon Dioxide Level 29 mmol/L (21-32) Anion Gap 9 (6-14) Blood Urea Nitrogen 11 mg/dL (8-26) Creatinine 1.3 mg/dL (0.7-1.3) Estimated GFR (Cockcroft-Gault) 54.9 BUN/Creatinine Ratio 8 (6-20) Glucose Level 105 mg/dL (70-99) H Calcium Level 9.6 mg/dL (8.5-10.1) Total Bilirubin 1.1 mg/dL (0.2-1.0) H Aspartate Amino Transferase (AST) 18 U/L (15-37) Alanine Aminotransferase (ALT) 34 U/L (16-63) Alkaline Phosphatase 90 U/L (46-116) Troponin I Quantitative < 0.017 ng/mL (0.000-0.055) Total Protein 7.8 g/dL (6.4-8.2) Albumin 4.0 g/dL (3.4-5.0) Albumin/Globulin Ratio 1.1 (1.0-1.7) Laboratory Tests 01/18/19 20:00 Laboratory Tests 01/18/19 20:00 EKG EKG [EKG: reviewed] Radiology/Procedures Radiology/Procedures [CT head/cervical spine: No findings per radiology report] Course & Med Decision Making Course & Med Decision Making Pertinent Labs and Imaging studies reviewed. (See chart for details) [Patient with exacerbation of chronic chest, neck pain and headache. No acute findings on imaging studies. Pain addressed. Will treat supportively with PCP follow-up as scheduled.] Dragon Disclaimer Dragon Disclaimer This electronic medical record was generated, in whole or in part, using a voice recognition dictation system. Departure Departure Impression: Primary Impression: Neck pain, chronic Additional Impressions: Chronic headache Chest pain Disposition: HOME, SELF-CARE Condition: GOOD Referrals: UNKNOWN PCP NAME (PCP) Patient Instructions: Chest Pain (Nonspecific), General Headache Without Cause Additional Instructions: You were evaluated in the emergency department for headache, neck pain and chest pain. EKG lab and imaging studies were performed. No diagnosis was made. Please continue ibuprofen [id number] 3 times daily for pain. Take tramadol and Flexeril as needed for additional pain relief. Follow-up with your PCP as scheduled in 6 days. If you develop new or worsening symptoms, return to the emergency department. Scripts Cyclobenzaprine Hcl (CYCLOBENZAPRINE HCL) 10 Mg Tablet 1 TAB PO TID, #30 TAB Prov: ENRIQUE SPENCE DO 01/18/19 Tramadol Hcl (TRAMADOL HCL) 50 Mg Tablet 50 MG PO Q8HRS, #20 TAB 0 Refills Prov: ENRIQUE SPENCE DO 01/18/19 Problem Qualifiers ENRIQUE SPENCE DO January 18, 2019 20:50
--- NOTE | 2019-01-18 20:59 | RAD ---
CT scan of the head without contrast 01/18/2019 Clinical History: Headaches. Technique: Unenhanced, contiguous, 5 mm axial sections were obtained through the head. One or more of the following individualized dose reduction techniques were utilized for this study: 1. Automated exposure control. 2. Adjustment of the mA and/or kV according to patient size. 3. Use of iterative reconstruction technique. Findings: Comparison study is dated 05/20/2018. There is generalized parenchymal atrophy. Areas of decreased attenuation are seen within the periventricular and subcortical white matter of both cerebral hemispheres consistent with areas of small vessel ischemic disease. No acute parenchymal abnormality is seen. No extra-axial fluid collection is noted. No skull fracture is seen. Impression: No acute intracranial abnormality is seen. CT scan of the cervical spine without contrast 01/18/2019 Clinical history: Neck pain. Technique: Unenhanced, contiguous, 0.625 mm axial sections were obtained through the cervical spine. Axial, coronal and sagittal reconstructed images were obtained. One or more of the following individualized dose reduction techniques were utilized for this study: 1. Automated exposure control. 2. Adjustment of the mA and/or kV according to patient size. 3. Use of iterative reconstruction technique. Findings: Sagittal and coronal reconstructed images demonstrate minimal lateral curvature of the cervical spine, convex to the left. There is slight straightening of the normal cervical lordosis. No fracture or subluxation of the cervical vertebrae seen. Relatively mild degenerative changes are seen involving the uncovertebral and facet joints scattered throughout the cervical disc spaces. No area of significant central spinal canal or neural foraminal stenosis is seen. Impression: Relatively mild degenerative changes are seen involving the cervical spine. No acute osseous abnormality is seen. Electronically signed by: Rick Sanon MD (01/18/2019 8:57 PM) [facility]
[2019-01-18] MEDS ORDERED: CYCL10TA2 PO (21:14)
[2019-01-18] MEDS ORDERED: TRAM50TA PO (21:14)
[2019-01-18 21:25] VITALS: BP 119/85
--- NOTE | 2019-01-18 22:26 | RAD ---
AP portable chest radiograph 01/18/2019 Clinical History: Mid chest pain for one day. An AP erect portable digital radiograph of the chest was obtained. Comparison study is dated 10/01/2018. The cardiac silhouette is mildly enlarged. The thoracic aorta is tortuous. No acute pulmonary infiltrate is seen. No pleural effusion or pneumothorax is noted. The osseous structures are grossly intact. Impression: No acute abnormality is seen. Electronically signed by: Rick Sanon MD (01/18/2019 10:23 PM) [facility]
--- NOTE | 2019-01-19 07:33 | EKG ---
[facility] [address] [place] [address] Test Date: 2019-01-18 Test Time: 21:06:36 Pat Name: BILL KIRBY Department: Room: Gender: M Sanitation Manager: : [id number] Requested By: ENRIQUE SPENCE Order Number: [id number] Reading MD: Dusty Phillip Measurements Intervals Margie Rate: 66 P: 19 NE: 194 QRS: -15 QRSD: 94 T: 7 QT: 410 QTc: 436 Interpretive Statements SINUS RHYTHM LEFTWARD AXIS Electronically Signed On 02-09-2019 12:25:11 CDT by Dusty Phillip
== END 2019-01-18 21:30 | disposition home or self-care (01) ==
LOC: ER 18:25
DX: G89.29 Other chronic pain (principal); M54.2 Cervicalgia; R51 Headache; R07.89 Other chest pain; M25.511 Pain in right shoulder; I10 Essential (primary) hypertension; J45.909 Unspecified asthma, uncomplicated; I25.2 Old myocardial infarction; Z91.041 Radiographic dye allergy status
CPT/HCPCS: 36415; 70450; 71045; 72125; 80053; 81001; 84484; 85025; 93005; 96374; 96375; 99285; J2405; J3010

== ENCOUNTER 2019-10-06 17:17 | Observation (INO) | payer OTHER ==
[~2019-10-06] VITALS: Ht 167.6 cm; Wt 84.4 kg
[~2019-10-06 17:17] MED LIST changes: +CYCL10TA2 PO; +TRAM50TA PO
[2019-10-06] MEDS ORDERED: ASPIRIN CHEWABLE 81 MG TABLET. PO ONE (17:30)
--- NOTE | 2019-10-06 17:40 | PHYS DOC ---
Past Medical History Past Medical History: Asthma, Diabetes-Type II, Hypertension (TIFFANY MARIE DO) Past Surgical History: No Surgical History, Other Additional Past Surgical Histo: PCI (TIFFANY MARIE DO) Alcohol Use: Occasionally Drug Use: None (TIFFANY MARIE DO) Adult General Chief Complaint Chief Complaint: CHEST PAIN [facility] HPI Patient is a 69 year old L presented to ER today for evaluation of substernal chest pain that been going on off and on for 5 days. Patient also complaint of cough with clear sputum, comparison fever and chill. Patient denies any trouble breathing. Patient had some slight headache as well. Patient has history hypertension, diabetes, asthma. Patient is not a smoker, his father 4 years ago due to a heart attack. She denies any history of blood clot disorder, denies any recent travel or operation. Patient did have it influenza vaccination last year. He denies any abdominal pain, no nausea vomiting. aLL OTHER ros IS NEGATIVE UNLESS OTHERWISE NOTED IN hpi (TIFFANY MARIE DO) Review of Systems Review of Systems See above (TIFFANY MARIE DO) Current Medications Current Medications Current Medications Medications (Trade) Dose Ordered Sig/Bella Start Time Stop Time Status Last Admin Dose Admin Aspirin (Children'S Aspirin) 324 mg 1X ONCE 10/06/19 17:30 10/06/19 17:33 DC 10/06/19 17:56 324 MG (CANDE LOPEZ MD) Allergies Allergies Allergies Coded Allergies Type Severity Reaction Last Updated Verified Iodinated Contrast- Oral and IV Dye Allergy Intermediate 04/24/18 Yes (CANDE LOPEZ MD) Physical Exam Physical Exam See above Constitutional: Well developed, well nourished, no acute distress, non-toxic appearance. [] HENT: Normocephalic, atraumatic, bilateral external ears normal, oropharynx moist, no oral exudates, nose normal. [] Eyes: PERRLA, EOMI, conjunctiva normal, no discharge. [] Neck: Normal range of motion, no tenderness, supple, no stridor. [] Cardiovascular:Heart rate regular rhythm, no murmur. NO PITTING EDEMA, NO JVD. Lungs & Thorax: Bilateral breath sounds WITH EXPIRATORY WHEEZING, NO RESPIRATORY DISTRESS, Abdomen: Bowel sounds normal, soft, no tenderness, no masses, no pulsatile mas ses. [] Skin: Warm, dry, no erythema, no rash. [] Back: No tenderness, no CVA tenderness. [] Extremities: No tenderness, no cyanosis, no clubbing, ROM intact, no edema. [] Neurologic: Alert and oriented X 3, normal motor function, normal sensory function, no focal deficits noted. [] Psychologic: Affect normal, judgement normal, mood normal. [] (TIFFANY MARIE DO) Current Patient Data Vital Signs Vital Signs Date Time Temp Pulse Resp B/P (MAP) Pulse Ox O2 Delivery O2 Flow Rate FiO2 10/06/19 17:20 97.4 96 20 127/78 (94) 97 Room Air 97.4 (CANDE LOPEZ MD) Lab Values Laboratory Tests Test 10/06/19 17:35 White Blood Count 6.9 x10^3/uL (4.0-11.0) Red Blood Count 5.76 x10^6/uL (4.30-5.70) H Hemoglobin 16.1 g/dL (13.0-17.5) Hematocrit 46.4 % (39.0-53.0) Mean Corpuscular Volume 81 fL (79-100) Mean Corpuscular Hemoglobin 28 pg (25-35) Mean Corpuscular Hemoglobin Concent 35 g/dL (31-37) Red Cell Distribution Width 14.2 % (11.5-14.5) Platelet Count 186 x10^3/uL (140-400) Neutrophils (%) (Auto) 68 % (31-73) Lymphocytes (%) (Auto) 18 % (24-48) L Monocytes (%) (Auto) 9 % (0-9) Eosinophils (%) (Auto) 4 % (0-3) H Basophils (%) (Auto) 1 % (0-3) Neutrophils # (Auto) 4.7 x10^3/uL (1.8-7.7) Lymphocytes # (Auto) 1.3 x10^3/uL (1.0-4.8) Monocytes # (Auto) 0.6 x10^3/uL (0.0-1.1) Eosinophils # (Auto) 0.2 x10^3/uL (0.0-0.7) Basophils # (Auto) 0.1 x10^3/uL (0.0-0.2) Prothrombin Time 13.1 SEC (11.7-14.0) Prothrombin Time INR 1.0 (0.8-1.1) Activated Partial Thromboplast Time 28 SEC (24-38) Sodium Level 143 mmol/L (136-145) Potassium Level 3.3 mmol/L (3.5-5.1) L Chloride Level 105 mmol/L (98-107) Carbon Dioxide Level 30 mmol/L (21-32) Anion Gap 8 (6-14) Blood Urea Nitrogen 10 mg/dL (8-26) Creatinine 1.2 mg/dL (0.7-1.3) Estimated GFR (Cockcroft-Gault) 60.0 BUN/Creatinine Ratio 8 (6-20) Glucose Level 142 mg/dL (70-99) H Calcium Level 9.2 mg/dL (8.5-10.1) Magnesium Level 2.0 mg/dL (1.8-2.4) Total Bilirubin 1.2 mg/dL (0.2-1.0) H Aspartate Amino Transferase (AST) 16 U/L (15-37) Alanine Aminotransferase (ALT) 25 U/L (16-63) Alkaline Phosphatase 94 U/L (46-116) Troponin I Quantitative < 0.017 ng/mL (0.000-0.055) SM-Lnb-R-Type Natriuretic Peptide 44 pg/mL (0-124) Total Protein 7.9 g/dL (6.4-8.2) Albumin 4.2 g/dL (3.4-5.0) Albumin/Globulin Ratio 1.1 (1.0-1.7) Lipase 172 U/L (73-393) Laboratory Tests 10/06/19 17:35 Laboratory Tests 10/06/19 17:35 (CANDE LOPEZ MD) Lab Values Laboratory Tests Test 10/06/19 17:35 White Blood Count 6.9 x10^3/uL (4.0-11.0) Red Blood Count 5.76 x10^6/uL (4.30-5.70) H Hemoglobin 16.1 g/dL (13.0-17.5) Hematocrit 46.4 % (39.0-53.0) Mean Corpuscular Volume 81 fL (79-100) Mean Corpuscular Hemoglobin 28 pg (25-35) Mean Corpuscular Hemoglobin Concent 35 g/dL (31-37) Red Cell Distribution Width 14.2 % (11.5-14.5) Platelet Count 186 x10^3/uL (140-400) Neutrophils (%) (Auto) 68 % (31-73) Lymphocytes (%) (Auto) 18 % (24-48) L Monocytes (%) (Auto) 9 % (0-9) Eosinophils (%) (Auto) 4 % (0-3) H Basophils (%) (Auto) 1 % (0-3) Neutrophils # (Auto) 4.7 x10^3/uL (1.8-7.7) Lymphocytes # (Auto) 1.3 x10^3/uL (1.0-4.8) Monocytes # (Auto) 0.6 x10^3/uL (0.0-1.1) Eosinophils # (Auto) 0.2 x10^3/uL (0.0-0.7) Basophils # (Auto) 0.1 x10^3/uL (0.0-0.2) Prothrombin Time 13.1 SEC (11.7-14.0) Prothrombin Time INR 1.0 (0.8-1.1) Activated Partial Thromboplast Time 28 SEC (24-38) Laboratory Tests 10/06/19 17:35 (TIFFANY MARIE DO) EKG EKG EKG WAS READ BY THIS PHYSICIAN AT 1724, RATE OF 95 BPM, NO STEMI. SINUS RHYTHM.[] (TIFFANY MARIE DO) Radiology/Procedures Radiology/Procedures [] (TIFFANY MARIE DO) Course & Med Decision Making Course & Med Decision Making Pertinent Labs and Imaging studies reviewed. (See chart for details) He is a 69-year-old male with history hypertension, diabetes, asthma, family history heart problem, present for chest pain off and on for 5 days, will checked out to Dr. Lopez at shift change, pending lab work and chest xray. (TIFFANY MARIE DO) Course & Med Decision Making @1836:Patient care transferred to [place] at 1800 with follow-up with the lab results. Patient is non-Turkmen speaking patient and looks comfortable and does not complaining of pain. Cardiac enzymes was negative. Patient has heart score of 6. Patient requiring admission for further evaluation and treatment. Discussed with Dr. Bonilla at 1635who is in agreement with admission. Discu ssed findings and plan with patient and family, who acknowledge understanding and agreement. (CANDE LOPEZ MD) Dragon Disclaimer Dragon Disclaimer This electronic medical record was generated, in whole or in part, using a voice recognition dictation system. (TIFFANY MARIE DO) Departure Departure Impression: Primary Impression: Chest pain Disposition: ADMITTED INPATIENT Admitting Physician: RANDY (Dr Bonilla accepted admission) (CANDE LOPEZ MD) Condition: IMPROVED Referrals: UNKNOWN PCP NAME (PCP) The HEART Score for CP Pts HEART Score for Chest Pain: HEART Score for Chest Pain Response (Comments) Value History Moderately Suspicious 1 ECG Nonspecific Repolarizatio 1 Age > 65 2 Risk Factors >3 Risk Factors or Hx CAD 2 Troponin < Normal Limit 0 Total 6 Risk Factors: Risk Factors: DM, Current or recent (<one month) smoker, HTN, HLP, family history of CAD, obesity. Risk Scores: Score 0 - 3: 2.5% MACE over next 6 weeks - Discharge Home Score 4 - 6: 20.3% MACE over next 6 weeks - Admit for Clinical Observation Score 7 - 10: 72.7% MACE over next 6 weeks - Early Invasive Strategies (TIFFANY MARIE DO) TIFFANY MARIE DO Oct 06, 2019 17:39 CANDE LOPEZ MD Oct 06, 2019 18:36
[2019-10-06 17:45] LABS: BASO # 0.1 x10^3/uL (0.0-0.2); BASO % 1 % (0-3); EOS # 0.2 x10^3/uL (0.0-0.7); EOS % 4 % (0-3); HEMATOCRIT 46.4 % (39.0-53.0); HEMOGLOBIN 16.1 g/dL (13.0-17.5); LYMPH # 1.3 x10^3/uL (1.0-4.8); LYMPH % 18 % (24-48); MEAN CORPUSCULAR HEMOGLOBIN 28 pg (25-35); MEAN CORPUSCULAR HGB CONC 35 g/dL (31-37); MEAN CORPUSCULAR VOLUME 81 fL (79-100); MONO # 0.6 x10^3/uL (0.0-1.1); MONO % 9 % (0-9); NEUT # 4.7 x10^3/uL (1.8-7.7); NEUT % 68 % (31-73); PLATELET COUNT 186 x10^3/uL (140-400); RED BLOOD COUNT 5.76 x10^6/uL (4.30-5.70); RED CELL DISTRIBUTION WIDTH 14.2 % (11.5-14.5); WHITE BLOOD COUNT 6.9 x10^3/uL (4.0-11.0)
[2019-10-06 17:58] LABS: PROTHROMBIN TIME PATIENT 13.1 SEC (11.7-14.0)
[2019-10-06 18:02] LABS: CALCIUM 9.2 mg/dL (8.5-10.1); CREATININE 1.2 mg/dL (0.7-1.3); POTASSIUM 3.3 mmol/L (3.5-5.1)
[2019-10-06 18:11] LABS: ALBUMIN 4.2 g/dL (3.4-5.0); ALBUMIN/GLOBULIN RATIO 1.1 (1.0-1.7); TOTAL BILIRUBIN 1.2 mg/dL (0.2-1.0); TOTAL PROTEIN 7.9 g/dL (6.4-8.2)
--- NOTE | 2019-10-06 18:41 | RAD ---
EXAM: CHEST ONE VIEW. HISTORY: Chest pain. COMPARISON: 01/18/2019. FINDINGS: A frontal view of the chest is obtained. There are no confluent infiltrates. There is no pneumothorax or pleural effusion. The heart is mildly enlarged. The aortic arch appears tortuous but stable. IMPRESSION: 1. Mild cardiomegaly. Electronically signed by: Rome Espinoza MD (10/06/2019 6:38 PM) [id number]
--- NOTE | 2019-10-06 18:51 | PDOC1 ---
History and Physical Date of Admission Date of Admission DATE: 10/06/19 TIME: 18:50 Identification/Chief Complaint Chief Complaint seen in er ,, 69 year old L presented to ER today for evaluation of substernal chest pain that been going on off and on for 5 days. Patient also complaint of cough with clear sputum, comparison fever and chill. Patient denies any trouble breathing. Patient had some slight headache as well. Patient has history hypertension, diabetes, asthma. Patient is not a smoker, his father 4 years ago due to a heart attack. Past Medical History Past Medical History Past Medical History Past Medical History Past Medical History: Asthma, Diabetes-Type II, Hypertension Past Surgical History: No Surgical History, Other Additional Past Surgical Histo: PCI Alcohol Use: Occasionally Drug Use: None fhx htn Past Medical History Pulmonary: Asthma, Bronchitis Past Surgical History Past Surgical History: No pertinent history Family History Family History: No Significant Social History Smoke: No ALCOHOL: none Drugs: None from [facility]. He does not smoke tobacco, but he does chew tobacco. No alcohol, no pets. He denies any TB. No skin test, no TB exposures. Pulmonary: Asthma, Bronchitis Infectious disease: No pertinent hx Dermatology: No pertinent hx Past Surgical History Past Surgical History: No pertinent history Family History Family History: Coronary Artery Disease, Hypertension Social History Smoke: No ALCOHOL: none Drugs: None Current Problem List Problem List Problems Medical Problems: (1) Chest pain Status: Acute Current Medications Current Medications Current Medications Aspirin (Children'S Aspirin) 324 mg 1X ONCE PO Last administered on 10/06/19at 17:56; Start 10/06/19 at 17:30; Stop 10/06/19 at 17:33; Status DC Active Scripts Active Cyclobenzaprine Hcl 10 Mg Tablet 1 Tab PO TID Tramadol Hcl 50 Mg Tablet 50 Mg PO Q8HRS Naproxen 500 Mg Tablet 1 Tab PO BID PRN Orphenadrine Citrate 100 Mg Tablet.er 1 Tab PO BID PRN Flomax (Tamsulosin Hcl) 0.4 Mg Cap.er.24h 1 Cap PO DAILY Losartan-Hctz 100-12.5 Mg Tab (Losartan/Hydrochlorothiazide) 1 Each Tablet 1 Tab PO DAILY Amlodipine Besylate 10 Mg Tablet 10 Mg PO DAILY Hydrochlorothiazide Tablet (Hydrochlorothiazide) 25 Mg Tablet 1 Tab PO DAILY Proair Hfa Inhaler (Albuterol Sulfate) 8.5 Gm Hfa.aer.ad 1 Puff INH PRN Q6HRS PRN Allergies Allergies: Coded Allergies: Iodinated Contrast- Oral and IV Dye (Verified Allergy, Intermediate, 04/24/18) ROS Review of System 14 pt ros otherwise neg General: No: Chills, Night Sweats, Fatigue, Malaise, Appetite, Other PSYCHOLOGICAL ROS: No: Anxiety, Behavioral Disorder, Concentration difficultie, Decreased libido, Depression, Disorientation, Hallucinations, Hostility, Irritablity, Memory difficulties, Mood Swings, Obsessive thoughts, Physical abuse, Sexual abuse, Sleep disturbances, Suicidal ideation, Other Hematological and Lymphatic: No: Bleeding Problems, Blood Clots, Blood Transfusions, Brusing, Night Sweats, Pallor, Swollen Lymph Nodes, Other Breast: No New/Changing Breast Lumps, No Nipple changes, No Nipple discharge, No Other Respiratory: YES: Pleuritic Pain; No: Cough, Hemoptysis, Orthopnea, Shortness of breath, SOB with excertion, Sputum Changes, Stridor, Tachypnea, Wheezing, Other Cardiovascular: yes Chest Pain; No Palpitations, No Orthopnea, No Paroxysmal Noc. Dyspnea, No Edema, No Lt Headedness, No Other Gastrointestinal: No Nausea, No Vomiting, No Abdominal Pain, No Diarrhea, No Constipation, No Melena, No Hematochezia, No Other Genitourinary: No Dysuria, No Frequency, No Incontinence, No Hematuria, No Retention, No Discharge, No Urgency, No Pain, No Flank Pain, No Other, No , No , No , No , No , No , No Musculoskeletal: No Gait Disturbance, No Joint Pain, No Joint Stiffness, No Joint Swelling, No Muscle Pain, No Muscular Weakness, No Pain In:, No Swelling In:, No Other Neurological: No Behavorial Changes, No Bowel/Bladder ControlChng, No Confusion, No Dizziness, No Gait Disturbance, No Headaches, No Impaired Coord/balance, No Memory Loss, No Numbness/Tingling, No Seizures, No Speech Problems, No Tremors, No Visual Changes, No Weakness, No Other Skin: Yes Dry Skin; No Eczema, No Hair Changes, No Lumps, No Mole Changes, No Mottling, No Nail Changes, No Pruritus, No Rash, No Skin Lesion Changes, No Other, No Acne Physical Exam Physical Exam Constitutional: Well developed, well nourished, no acute distress, non-toxic appearance. [] HENT: Normocephalic, atraumatic, bilateral external ears normal, oropharynx moist, no oral exudates, nose normal. [] Eyes: PERRLA, EOMI, conjunctiva normal, no discharge. [] Neck: Normal range of motion, no tenderness, supple, no stridor. [] Cardiovascular:Heart rate regular rhythm, no murmur. NO PITTING EDEMA, NO JVD. Lungs & Thorax: Bilateral breath sounds WITH mild EXPIRATORY WHEEZING, NO RESPIRATORY DISTRESS, Abdomen: Bowel sounds normal, soft, no tenderness, no masses, no pulsatile masses. [] Skin: Warm, dry, no erythema, no rash. [] Back: No tenderness, no CVA tenderness. [] Extremities: No tenderness, no cyanosis, no clubbing, ROM intact, no edema. [] Neurologic: Alert and oriented X 3, normal motor function, normal sensory function, no focal deficits noted. [] Psychologic: Affect normal, judgment normal, mood normal. [] General: Alert, Oriented X3, Cooperative Lungs: Clear to auscultation Heart: RRR, no thrills Breasts: Not examined Abdomen: Normal bowel sounds, Soft PELVIC: Examination not indicated Extremities: No cyanosis, No edema Skin: No rashes Neuro: Normal speech, Cranial nerves 3-12 NL Psych/Mental Status: Mental status NL, Mood NL Vitals Vitals Vital Signs Date Time Temp Pulse Resp B/P (MAP) Pulse Ox O2 Delivery O2 Flow Rate FiO2 10/06/19 17:56 88 20 118/77 (91) 95 Room Air 10/06/19 17:20 97.4 97.4 Labs Labs Laboratory Tests Test 10/06/19 17:35 White Blood Count 6.9 x10^3/uL (4.0-11.0) Red Blood Count 5.76 x10^6/uL (4.30-5.70) Hemoglobin 16.1 g/dL (13.0-17.5) Hematocrit 46.4 % (39.0-53.0) Mean Corpuscular Volume 81 fL (79-100) Mean Corpuscular Hemoglobin 28 pg (25-35) Mean Corpuscular Hemoglobin Concent 35 g/dL (31-37) Red Cell Distribution Width 14.2 % (11.5-14.5) Platelet Count 186 x10^3/uL (140-400) Neutrophils (%) (Auto) 68 % (31-73) Lymphocytes (%) (Auto) 18 % (24-48) Monocytes (%) (Auto) 9 % (0-9) Eosinophils (%) (Auto) 4 % (0-3) Basophils (%) (Auto) 1 % (0-3) Neutrophils # (Auto) 4.7 x10^3/uL (1.8-7.7) Lymphocytes # (Auto) 1.3 x10^3/uL (1.0-4.8) Monocytes # (Auto) 0.6 x10^3/uL (0.0-1.1) Eosinophils # (Auto) 0.2 x10^3/uL (0.0-0.7) Basophils # (Auto) 0.1 x10^3/uL (0.0-0.2) Prothrombin Time 13.1 SEC (11.7-14.0) Prothromb Time International Ratio 1.0 (0.8-1.1) Activated Partial Thromboplast Time 28 SEC (24-38) Sodium Level 143 mmol/L (136-145) Potassium Level 3.3 mmol/L (3.5-5.1) Chloride Level 105 mmol/L (98-107) Carbon Dioxide Level 30 mmol/L (21-32) Anion Gap 8 (6-14) Blood Urea Nitrogen 10 mg/dL (8-26) Creatinine 1.2 mg/dL (0.7-1.3) Estimated GFR (Cockcroft-Gault) 60.0 BUN/Creatinine Ratio 8 (6-20) Glucose Level 142 mg/dL (70-99) Calcium Level 9.2 mg/dL (8.5-10.1) Magnesium Level 2.0 mg/dL (1.8-2.4) Total Bilirubin 1.2 mg/dL (0.2-1.0) Aspartate Amino Transf (AST/SGOT) 16 U/L (15-37) Alanine Aminotransferase (ALT/SGPT) 25 U/L (16-63) Alkaline Phosphatase 94 U/L (46-116) Troponin I Quantitative < 0.017 ng/mL (0.000-0.055) AD-Ubk-E-Type Natriuretic Peptide 44 pg/mL (0-124) Total Protein 7.9 g/dL (6.4-8.2) Albumin 4.2 g/dL (3.4-5.0) Albumin/Globulin Ratio 1.1 (1.0-1.7) Lipase 172 U/L (73-393) Laboratory Tests Test 10/06/19 17:35 White Blood Count 6.9 x10^3/uL (4.0-11.0) Red Blood Count 5.76 x10^6/uL (4.30-5.70) Hemoglobin 16.1 g/dL (13.0-17.5) Hematocrit 46.4 % (39.0-53.0) Mean Corpuscular Volume 81 fL (79-100) Mean Corpuscular Hemoglobin 28 pg (25-35) Mean Corpuscular Hemoglobin Concent 35 g/dL (31-37) Red Cell Distribution Width 14.2 % (11.5-14.5) Platelet Count 186 x10^3/uL (140-400) Neutrophils (%) (Auto) 68 % (31-73) Lymphocytes (%) (Auto) 18 % (24-48) Monocytes (%) (Auto) 9 % (0-9) Eosinophils (%) (Auto) 4 % (0-3) Basophils (%) (Auto) 1 % (0-3) Neutrophils # (Auto) 4.7 x10^3/uL (1.8-7.7) Lymphocytes # (Auto) 1.3 x10^3/uL (1.0-4.8) Monocytes # (Auto) 0.6 x10^3/uL (0.0-1.1) Eosinophils # (Auto) 0.2 x10^3/uL (0.0-0.7) Basophils # (Auto) 0.1 x10^3/uL (0.0-0.2) Prothrombin Time 13.1 SEC (11.7-14.0) Prothromb Time International Ratio 1.0 (0.8-1.1) Activated Partial Thromboplast Time 28 SEC (24-38) Sodium Level 143 mmol/L (136-145) Potassium Level 3.3 mmol/L (3.5-5.1) Chloride Level 105 mmol/L (98-107) Carbon Dioxide Level 30 mmol/L (21-32) Anion Gap 8 (6-14) Blood Urea Nitrogen 10 mg/dL (8-26) Creatinine 1.2 mg/dL (0.7-1.3) Estimated GFR (Cockcroft-Gault) 60.0 BUN/Creatinine Ratio 8 (6-20) Glucose Level 142 mg/dL (70-99) Calcium Level 9.2 mg/dL (8.5-10.1) Magnesium Level 2.0 mg/dL (1.8-2.4) Total Bilirubin 1.2 mg/dL (0.2-1.0) Aspartate Amino Transf (AST/SGOT) 16 U/L (15-37) Alanine Aminotransferase (ALT/SGPT) 25 U/L (16-63) Alkaline Phosphatase 94 U/L (46-116) Troponin I Quantitative < 0.017 ng/mL (0.000-0.055) VK-Xqf-B-Type Natriuretic Peptide 44 pg/mL (0-124) Total Protein 7.9 g/dL (6.4-8.2) Albumin 4.2 g/dL (3.4-5.0) Albumin/Globulin Ratio 1.1 (1.0-1.7) Lipase 172 U/L (73-393) Images Images EXAM: CHEST ONE VIEW. HISTORY: Chest pain. COMPARISON: 01/18/2019. FINDINGS: A frontal view of the chest is obtained. There are no confluent infiltrates. There is no pneumothorax or pleural effusion. The heart is mildly enlarged. The aortic arch appears tortuous but stable. IMPRESSION: 1. Mild cardiomegaly. Electronically signed by: Rome Espinoza MD (10/06/2019 6:38 PM) [id number] DICTATED and SIGNED BY: TINO ESPINOZA MD VTE Prophylaxis Ordered VTE Prophylaxis Devices: Yes VTE Pharmacological Prophylaxi: Yes Assessment/Plan Assessment/Plan Impression: Chest pain obesity ADMITTED cvc bed serial troponin i consult cardiology dvt prophylaxis JOSE DANIELS MD Oct 06, 2019 18:51
[2019-10-06] MEDS ORDERED: ONDANSETRON PF 4 MG/2 ML VIAL. IV PRN (19:45)
[2019-10-06] MEDS ORDERED: DOCUSATE SODIUM 100 MG CAPSULE. PO PRN (19:45)
[2019-10-06] MEDS ORDERED: ACETAMINOPHEN 325 MG TABLET. PO PRN (19:45)
[2019-10-06] MEDS ORDERED: ALBUTEROL SULFATE 2.5 MG/3 ML NEBU. NEB PRN (19:45)
[2019-10-06] MEDS ORDERED: MAG HYDROX/ALUMINUM HYD/SIMETH 30 ML ORAL.SUSP PO PRN (19:45)
[2019-10-06] MEDS ORDERED: 0.9 % SODIUM CHLORIDE 10 ML DISP.SYRIN. IV PRN (19:45)
[2019-10-06] MEDS ORDERED: ALBUTEROL SULFATE 2.5 MG/3 ML NEBU. INH PRN (19:45)
[2019-10-06] MEDS ORDERED: guaiFENesin ORAL 200 MG/10 ML LIQUID. PO PRN (19:45)
[2019-10-06] MEDS ORDERED: cloNIDine HCL 0.1 MG TABLET PO PRN (19:45)
[2019-10-06] MEDS ORDERED: LORazepam 0.5 MG TABLET PO PRN (19:45)
[2019-10-06 19:50] VITALS: BP 120/87
[2019-10-06] MEDS ORDERED: LOSA-73 PO (19:55)
[2019-10-06] MEDS ORDERED: ENOXAPARIN 40 MG/0.4 ML SYRINGE. SQ SCH (21:00)
[2019-10-06] MEDS: NAPROXEN 500 MG TABLET PO PRN (21:54)
[2019-10-06] MEDS: CYCLOBENZAPRINE 10 MG TABLET. PO SCH (21:54)
[2019-10-06] MEDS: traMADol 50 MG TABLET PO PRN (23:16)
[2019-10-06 23:45] VITALS: BP 129/85
[2019-10-07 03:00] VITALS: BP 129/81
[2019-10-07 07:27] VITALS: BP 126/79
[2019-10-07] MEDS ORDERED: TAMSULOSIN 0.4 MG CAP.ER.24H. PO SCH (09:00)
[2019-10-07] MEDS ORDERED: LOSARTAN POTASSIUM 25 MG TABLET. PO SCH (09:00)
[2019-10-07] MEDS ORDERED: hydroCHLOROthiazide 25 MG TABLET PO SCH (09:00)
[2019-10-07] MEDS ORDERED: amLODIPine BESYLATE 10 MG TABLET PO SCH (09:00)
[2019-10-07] MEDS: CYCLOBENZAPRINE 10 MG TABLET. PO SCH ×2 (09:52→15:14)
[2019-10-07] MEDS: NAPROXEN 500 MG TABLET PO PRN (09:52)
[2019-10-07] MEDS: traMADol 50 MG TABLET PO PRN (09:57)
[2019-10-07 11:00] VITALS: BP 118/75
--- NOTE | 2019-10-07 13:27 | CONS ---
DATE OF CONSULTATION: 10/07/2019 REASON FOR CONSULTATION: Chest pain. HISTORY OF PRESENT ILLNESS: Most of the information is obtained through record review and discussion with the patient's daughter. The patient is unable to speak Georgian. The patient apparently has been having some chest discomfort for the last couple of days. No exertional component. No syncope or palpitations. No radiation to the back according to the daughter. No other acute issues. He is usually followed through [facility] and review of the records reveals the following past medical history. PAST MEDICAL HISTORY: 1. Coronary artery disease per record, but cardiac catheterization in 2016 did not reveal any pathology. 2. Ascending aortic aneurysm measuring 5.1 cm at the sinuses of Valsalva on CT scan in October of 2018 and 4.2 in the mid ascending portion and this has been stable since 2017. 3. Known pulmonary nodule. 4. Impaired glucose tolerance. 5. Hyperlipidemia. 6. Hypertension. SOCIAL HISTORY: The patient lives with his daughter. No alcohol or illicit drug use. FAMILY HISTORY: Noncontributory. CURRENT CARDIOVASCULAR MEDICATIONS: Include losartan, hydrochlorothiazide, amlodipine, aspirin daily. REVIEW OF SYSTEMS: Unable to be obtained. ALLERGIES: IODINATED CONTRAST. PHYSICAL EXAMINATION: VITAL SIGNS: Afebrile, heart rate 64, respiratory rate 17, blood pressure 118/75, 97% on room air. GENERAL: He is alert and oriented to his name, but otherwise due to language barrier, further information could not be obtained. HEAD AND NECK: Unremarkable. CARDIAC: Regular rate and rhythm without murmurs, rubs, or gallops. LUNGS: Clear to auscultation. ABDOMEN: Soft, nontender, nondistended. EXTREMITIES: No clubbing, cyanosis or edema, 2+ radial and dorsalis pedis pulses. NEUROLOGIC: No focal deficits. MUSCULOSKELETAL: No trauma. DIAGNOSTIC STUDIES: Hemoglobin, platelets, EKG, and creatinine are within normal limits. His cardiac enzymes are within normal limits. His BNP is within normal limits. He has known chronic hypokalemia. EKG is unremarkable. Chest x-ray is unremarkable without any widened mediastinum or any other abnormalities. IMPRESSION: Atypical chest pain without any obvious ischemic findings or concern for any acute aortic dissection. RECOMMENDATIONS: At this present time, the patient may be safely discharged to home with close followup with his primary care physician and die setter through [facility]. Thank you for this consultation. TABATHA GUILLEN MD DR: RACIEL/shaggy JOB#: [id number] / [id number]
--- NOTE | 2019-10-07 14:26 | PDOC ---
[facility] PROGRESS NOTE Chief Complaint Chief Complaint Chest pain History of Present Illness History of Present Illness [id number] Patient seen and examined Chart reviewed Vitals/I&O Vitals/I&O: Vital Signs Date Time Temp Pulse Resp B/P (MAP) Pulse Ox O2 Delivery O2 Flow Rate FiO2 10/07/19 09:57 97 10/07/19 09:54 64 118/75 10/07/19 07:27 97.6 17 Room Air 97.6 I & O 10/06/19 10/06/19 10/07/19 15:00 23:00 07:00 Intake Total 500 ml Balance 500 ml Physical Exam General: Alert, Oriented X3, Cooperative Heart: No murmurs Lungs: Clear, Crackles Abdomen: Normal bowel sounds, Soft Extremities: No cyanosis, No edema Skin: No rashes Labs Labs: Laboratory Tests Test 10/06/19 17:35 10/06/19 20:30 10/07/19 00:35 White Blood Count 6.9 x10^3/uL (4.0-11.0) Red Blood Count 5.76 x10^6/uL (4.30-5.70) Hemoglobin 16.1 g/dL (13.0-17.5) Hematocrit 46.4 % (39.0-53.0) Mean Corpuscular Volume 81 fL (79-100) Mean Corpuscular Hemoglobin 28 pg (25-35) Mean Corpuscular Hemoglobin Concent 35 g/dL (31-37) Red Cell Distribution Width 14.2 % (11.5-14.5) Platelet Count 186 x10^3/uL (140-400) Neutrophils (%) (Auto) 68 % (31-73) Lymphocytes (%) (Auto) 18 % (24-48) Monocytes (%) (Auto) 9 % (0-9) Eosinophils (%) (Auto) 4 % (0-3) Basophils (%) (Auto) 1 % (0-3) Neutrophils # (Auto) 4.7 x10^3/uL (1.8-7.7) Lymphocytes # (Auto) 1.3 x10^3/uL (1.0-4.8) Monocytes # (Auto) 0.6 x10^3/uL (0.0-1.1) Eosinophils # (Auto) 0.2 x10^3/uL (0.0-0.7) Basophils # (Auto) 0.1 x10^3/uL (0.0-0.2) Prothrombin Time 13.1 SEC (11.7-14.0) Prothromb Time International Ratio 1.0 (0.8-1.1) Activated Partial Thromboplast Time 28 SEC (24-38) Sodium Level 143 mmol/L (136-145) Potassium Level 3.3 mmol/L (3.5-5.1) Chloride Level 105 mmol/L (98-107) Carbon Dioxide Level 30 mmol/L (21-32) Anion Gap 8 (6-14) Blood Urea Nitrogen 10 mg/dL (8-26) Creatinine 1.2 mg/dL (0.7-1.3) Estimated GFR (Cockcroft-Gault) 60.0 BUN/Creatinine Ratio 8 (6-20) Glucose Level 142 mg/dL (70-99) Calcium Level 9.2 mg/dL (8.5-10.1) Magnesium Level 2.0 mg/dL (1.8-2.4) Total Bilirubin 1.2 mg/dL (0.2-1.0) Aspartate Amino Transf (AST/SGOT) 16 U/L (15-37) Alanine Aminotransferase (ALT/SGPT) 25 U/L (16-63) Alkaline Phosphatase 94 U/L (46-116) Troponin I Quantitative < 0.017 ng/mL (0.000-0.055) < 0.017 ng/mL (0.000-0.055) < 0.017 ng/mL (0.000-0.055) DD-Rem-P-Type Natriuretic Peptide 44 pg/mL (0-124) Total Protein 7.9 g/dL (6.4-8.2) Albumin 4.2 g/dL (3.4-5.0) Albumin/Globulin Ratio 1.1 (1.0-1.7) Lipase 172 U/L (73-393) Review of Systems Review of Systems: Complains of pain complains of weakness Assessment and Plan Assessmemt and Plan Problems Medical Problems: (1) Chest pain Status: Acute Chest pain Plan Cardiac monitoring Serial EKGs Serial enzymes Consult cardiology DVT prophylaxis Home meds Comment Review of Relevant I have reviewed the following items balta (where applicable) has been applied. Medications: Current Medications Medications (Trade) Dose Ordered Sig/Bella Route PRN Reason Start Time Stop Time Status Last Admin Dose Admin Aspirin (Children'S Aspirin) 324 mg 1X ONCE PO 10/06/19 17:30 10/06/19 17:33 DC 10/06/19 17:56 Guaifenesin (Robitussin) 200 mg PRN Q4HRS PRN PO COUGH 10/06/19 19:45 10/06/19 21:56 Enoxaparin Sodium (Lovenox 40mg Syringe) 40 mg Q24H SQ 10/06/19 21:00 10/06/19 21:54 Amlodipine Besylate (Norvasc) 10 mg DAILY PO 10/07/19 09:00 10/07/19 09:54 Cyclobenzaprine HCl (Flexeril) 10 mg TID PO 10/06/19 21:00 10/07/19 09:52 Hydrochlorothiazide (Hydrodiuril) 25 mg DAILY PO 10/07/19 09:00 10/07/19 09:51 Naproxen (Naprosyn) 500 mg BID PRN PO MILD PAIN, 1st CHOICE 10/06/19 19:45 10/07/19 09:52 Tamsulosin HCl (Flomax) 0.4 mg DAILY PO 10/07/19 09:00 10/07/19 09:51 Tramadol HCl (Ultram) 50 mg PRN Q8HRS PRN PO MODERATE PAIN, SEVERE PAIN 10/06/19 22:00 10/07/19 09:57 Losartan Potassium (Cozaar) 25 mg DAILY PO 10/07/19 09:00 10/07/19 09:52 MIRNA KAUR III DO Oct 07, 2019 14:26
--- NOTE | 2019-10-07 17:42 | EKG ---
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
== END 2019-10-07 15:00 | disposition home or self-care (01) ==
LOC: ER 17:17 → 2 NORTH 18:30
PROVIDERS: ADMIT Family Medicine; ATTEND Family Medicine
DX: R07.89 Other chest pain (principal); E66.9 Obesity, unspecified; I10 Essential (primary) hypertension; E11.9 Type 2 diabetes mellitus without complications; J45.909 Unspecified asthma, uncomplicated; Z68.30 Body mass index [BMI] 30.0-30.9, adult
CPT/HCPCS: 36415; 71045; 80053; 83690; 83735; 83880; 84484; 85025; 85610; 85730; 93005; 96372; 99284; G0378; J1650; G0379

== ENCOUNTER 2019-10-11 23:49 | Emergency (ER) | payer OTHER ==
[~2019-10-11] VITALS: Ht 172.7 cm; Wt 80.0 kg
[~2019-10-11 23:49] MED LIST changes: +LOSA-73 PO
[2019-10-12] VITALS: BP 144/97
--- NOTE | 2019-10-12 00:21 | RAD ---
CHEST PA LATERAL Technique: PA and lateral views of the chest were obtained. Clinical History: Comparison: October 06, 2019. Findings: The heart is mildly enlarged, pulmonary vessels appear normal. There is linear opacities in the lung bases. Impression: 1. Moderate cardiomegaly. 2. Basal infiltrates likely discoid atelectasis. Electronically signed by: Avi Flynn III, MD (10/12/2019 12:18 AM) [id number]
[2019-10-12 00:34] LABS: INFLUENZA A PATIENT NEGATIVE (NEGATIVE); INFLUENZA B PATIENT NEGATIVE (NEGATIVE)
[2019-10-12] MEDS ORDERED: IPRATRPIUM/ALBUTEROL 0.5/2.5MG 3 ML NEBU. NEB ONE (00:45)
[2019-10-12] MEDS ORDERED: guaiFENesin/CODEINE 100mg/10mg 5 ML LIQUID PO ONE (00:45)
[2019-10-12] MEDS ORDERED: predniSONE 10 MG TABLET PO ONE (00:45)
[2019-10-12] MEDS ORDERED: ALBU2.5V8 IH (00:59)
[2019-10-12] MEDS ORDERED: BENZ100C PO (00:59)
[2019-10-12] MEDS ORDERED: PRED50TA PO (00:59)
--- NOTE | 2019-10-12 01:00 | PHYS DOC ---
Past Medical History Past Medical History: Asthma, Diabetes-Type II, Hypertension (DADA QUIGLEY APRN) Past Surgical History: No Surgical History, Other Additional Past Surgical Histo: PCI (DADA QUIGLEY APRN) Smoking Status: Never Smoker Alcohol Use: Occasionally Drug Use: None (DADA QUIGLEY APRN) Attending Signature I have participated in the care of this patient and I have reviewed and agree with all pertinent clinical information above including history, exam, and recommendations. (NIMA CHONG MD) Adult General Chief Complaint Chief Complaint: FLU SYMPTOM HPI HPI Patient is a 69 year old Male with history of asthma, diabetes type 2, hypertension, who presents to the ED today complaining of sore throat, productive cough, symptoms began yesterday. He reports he was seen in the ED a week ago for chest pain. Patient denies any fever. He reports history of chewing tobacco. He reports he ran out of his inhaler a couple days ago. (DADA QUIGLEY APRN) Review of Systems Review of Systems Constitutional: Denies fever or chills [] Eyes: Denies change in visual acuity, redness, or eye pain [] HENT: reports sore throat.Denies nasal congestion Respiratory: reports cough, denies shortness of breath [] Cardiovascular: No additional information not addressed in HPI [] GI: Denies abdominal pain, nausea, vomiting, bloody stools or diarrhea [] : Denies dysuria or hematuria [] Musculoskeletal: Denies back pain or joint pain [] Integument: Denies rash or skin lesions [] Neurologic: Denies headache, focal weakness or sensory changes [] All other systems were reviewed and found to be within normal limits, except as documented in this note. (DADA QUIGLEY APRN) Current Medications Current Medications Current Medications Medications (Trade) Dose Ordered Sig/Bella Start Time Stop Time Status Last Admin Dose Admin Albuterol/ Ipratropium (Duoneb) 3 ml 1X ONCE 10/12/19 00:45 10/12/19 00:46 DC 10/12/19 00:57 3 ML Guaifenesin/ Codeine Phosphate (Robitussin Ac) 5 ml 1X ONCE 10/12/19 00:45 10/12/19 00:49 DC 10/12/19 01:37 5 ML Prednisone (Prednisone) 50 mg 1X ONCE 10/12/19 00:45 10/12/19 00:46 DC 10/12/19 01:38 50 MG (NIMA CHONG MD) Allergies Allergies Allergies Coded Allergies Type Severity Reaction Last Updated Verified Iodinated Contrast- Oral and IV Dye Allergy Intermediate 04/24/18 Yes (NIMA CHONG MD) Physical Exam Physical Exam Constitutional: Well developed, well nourished, no acute distress, non-toxic appearance. [] HENT: Normocephalic, atraumatic, bilateral external ears normal, oropharynx moist, no oral exudates, nose normal. [] Eyes: PERRLA, EOMI, conjunctiva normal, no discharge. [] Neck: Normal range of motion, no tenderness, supple, no stridor. [] Cardiovascular:Heart rate regular rhythm, no murmur [] Lungs & Thorax: Bilateral breath sounds clear to auscultation [] Abdomen: Bowel sounds normal, soft, no tenderness, no masses, no pulsatile masses. [] Skin: Warm, dry, no erythema, no rash. [] Back: No tenderness, no CVA tenderness. [] Extremities: No tenderness, no cyanosis, no clubbing, ROM intact, no edema. [] Neurologic: Alert and oriented X 3, normal motor function, normal sensory function, no focal deficits noted. [] Psychologic: Affect normal, judgement normal, mood normal. [] (DADA QUIGLEY APRN) Current Patient Data Vital Signs Vital Signs Date Time Temp Pulse Resp B/P (MAP) Pulse Ox O2 Delivery O2 Flow Rate FiO2 10/12/19 01:00 96 Room Air 10/12/19 00:00 97.9 96 18 144/97 (113) 97.9 (NIMA CHONG MD) Lab Values Laboratory Tests Test 10/12/19 00:05 Influenza Type A Antigen Negative (NEGATIVE) Influenza Type B Antigen Negative (NEGATIVE) (NIMA CHONG MD) EKG EKG [] (DADA QUIGLEY APRN) Radiology/Procedures Radiology/Procedures []PROCEDURE: CHEST PA & LATERAL CHEST PA LATERAL Technique: PA and lateral views of the chest were obtained. Clinical History: Comparison: October 06, 2019. Findings: The heart is mildly enlarged, pulmonary vessels appear normal. There is linear opacities in the lung bases. Impression: 1. Moderate cardiomegaly. 2. Basal infiltrates likely discoid atelectasis. Electronically signed by: Maribel Flynn III, MD (10/12/2019 12:18 AM) [id number] DICTATED and SIGNED BY: MARIBEL FLYNN III, MD DATE: 10/12/19 0018 (DADA QUIGLEY APRN) Course & Med Decision Making Course & Med Decision Making Pertinent Labs and Imaging studies reviewed. (See chart for details) This is a 69-year-old male patient presenting to the ED today complaining of a cough since yesterday, also complaining of sore throat, negative rapid strep. Negative influenza A or B. Chest x-ray negative for pneumonia. Has history of asthma ran out of inhaler. Patient was given a DuoNeb treatment, started on prednisone. Discharged with the same. Encouraged to consider not chewing tobacco. F/u with PCP next week (DADA QUIGLEY APRN) Dragon Disclaimer Dragon Disclaimer This electronic medical record was generated, in whole or in part, using a voice recognition dictation system. (DADA QUIGLEY APRN) Departure Departure Impression: Primary Impression: Asthma exacerbation Additional Impressions: Pharyngitis, acute Smoking addiction Disposition: HOME, SELF-CARE Condition: STABLE Referrals: UNKNOWN PCP NAME (PCP) follow up with your doctor in 1 week Patient Instructions: Asthma, Adult, [id number], Cough, Adult, Vihi-ne-Iuri Additional Instructions: You were evaluated in the emergency room. Consider not chewing tobacco. Use the medications prescribed as ordered. Follow up with your PCP next week. Scripts Benzonatate (TESSALON PERLE) 100 Mg Capsule 1 CAP PO TID, #30 CAP Prov: DADA QUIGLEY APRN 10/12/19 Prednisone (PREDNISONE) 50 Mg Tablet 1 TAB PO DAILY, #4 TAB Prov: DADA QUIGLEY APRN 10/12/19 Albuterol Sulfate (Proair Hfa) 8.5 Gm Hfa.aer.ad 2 PUFF IH PRN Q4-6HRS PRN for wheezing for 21 Days, #1 INHALER 0 Refills Prov: DADA QUIGLEY APRN 10/12/19 Problem Qualifiers Primary Impression: Asthma exacerbation Asthma severity: mild Asthma persistence: intermittent Qualified Codes: J45.21 - Mild intermittent asthma with (acute) exacerbation Additional Impressions: Pharyngitis, acute Pharyngitis/tonsillitis etiology: unspecified etiology Qualified Codes: J02.9 - Acute pharyngitis, unspecified DADA QUIGLEY APRN Oct 12, 2019 00:59 NIMA CHONG MD Oct 12, 2019 02:56
== END 2019-10-12 01:41 | disposition home or self-care (01) ==
LOC: ER 23:49
DX: J45.21 Mild intermittent asthma with (acute) exacerbation (principal); J02.9 Acute pharyngitis, unspecified; I10 Essential (primary) hypertension; E11.9 Type 2 diabetes mellitus without complications; Z91.041 Radiographic dye allergy status
CPT/HCPCS: 71046; 87070; 87804; 87880; 94640; 99285; J7512; J7620

== ENCOUNTER 2019-12-08 21:28 | Emergency (ER) | payer OTHER ==
[~2019-12-08] VITALS: Ht 170.2 cm; Wt 70.0 kg
[~2019-12-08 21:28] MED LIST changes: +ALBU2.5V8 IH; +BENZ100C PO
--- NOTE | 2019-12-08 22:01 | PHYS DOC ---
Past Medical History Past Medical History: Asthma, Diabetes-Type II, Hypertension Past Surgical History: No Surgical History, Other Additional Past Surgical Histo: PCI Smoking Status: Never Smoker Alcohol Use: Occasionally Drug Use: None Adult General Chief Complaint Chief Complaint: Congestion HPI HPI Patient is a 69-year-old male who presents with a several day history of cough congestion and some shortness of breath. He denies any fever chills or sweats. He denies any hemoptysis. He denies any chest pain or dyspnea on exertion. He has had no nausea vomiting. He does not think he's been around anybody that's been sick and he has had no recent travel.[] Review of Systems Review of Systems Constitutional: Denies fever or chills [] Eyes: Denies change in visual acuity, redness, or eye pain [] HENT: Denies nasal congestion or sore throat [] Respiratory: Per history of present illness[] Cardiovascular: No additional information not addressed in HPI [] GI: Denies abdominal pain, nausea, vomiting, bloody stools or diarrhea [] : Denies dysuria or hematuria [] Musculoskeletal: Denies back pain or joint pain [] Integument: Denies rash or skin lesions [] Neurologic: Denies headache, focal weakness or sensory changes [] Endocrine: Denies polyuria or polydipsia [] All other systems were reviewed and found to be within normal limits, except as documented in this note. Current Medications Current Medications Current Medications Medications (Trade) Dose Ordered Sig/Bella Start Time Stop Time Status Last Admin Dose Admin Albuterol/ Ipratropium (Duoneb) 3 ml 1X ONCE 12/08/19 22:15 12/08/19 22:16 DC 12/08/19 22:18 3 ML Prednisone (Prednisone) 60 mg 1X ONCE 12/08/19 22:15 12/08/19 22:16 DC 12/08/19 22:21 60 MG Allergies Allergies Allergies Coded Allergies Type Severity Reaction Last Updated Verified Iodinated Contrast Media Allergy Intermediate 04/24/18 Yes Physical Exam Physical Exam Constitutional: Well developed, well nourished, no acute distress, non-toxic appearance. [] HENT: Normocephalic, atraumatic, bilateral external ears normal, oropharynx moist, no oral exudates, nose normal. [] Eyes: PERRLA, EOMI, conjunctiva normal, no discharge. [] Neck: Normal range of motion, no tenderness, supple, no stridor. [] Cardiovascular:Heart rate regular rhythm, no murmur [] Lungs & Thorax: Mild apical wheezes no rales[] Abdomen: Bowel sounds normal, soft, no tenderness, no masses, no pulsatile masses. [] Skin: Warm, dry, no erythema, no rash. [] Back: No tenderness, no CVA tenderness. [] Extremities: No tenderness, no cyanosis, no clubbing, ROM intact, no edema. [] Neurologic: Alert and oriented X 3, normal motor function, normal sensory function, no focal deficits noted. [] Psychologic: Affect normal, judgement normal, mood normal. [] Current Patient Data Vital Signs Vital Signs Date Time Temp Pulse Resp B/P (MAP) Pulse Ox O2 Delivery O2 Flow Rate FiO2 12/08/19 22:22 86 20 147/92 (110) 94 Room Air 12/08/19 21:38 98.4 98.4 Lab Values Laboratory Tests Test 12/08/19 21:50 White Blood Count 7.0 x10^3/uL (4.0-11.0) Red Blood Count 5.54 x10^6/uL (4.30-5.70) Hemoglobin 15.3 g/dL (13.0-17.5) Hematocrit 44.2 % (39.0-53.0) Mean Corpuscular Volume 80 fL (79-100) Mean Corpuscular Hemoglobin 28 pg (25-35) Mean Corpuscular Hemoglobin Concent 35 g/dL (31-37) Red Cell Distribution Width 14.0 % (11.5-14.5) Platelet Count 201 x10^3/uL (140-400) Neutrophils (%) (Auto) 54 % (31-73) Lymphocytes (%) (Auto) 26 % (24-48) Monocytes (%) (Auto) 10 % (0-9) H Eosinophils (%) (Auto) 9 % (0-3) H Basophils (%) (Auto) 1 % (0-3) Neutrophils # (Auto) 3.8 x10^3/uL (1.8-7.7) Lymphocytes # (Auto) 1.8 x10^3/uL (1.0-4.8) Monocytes # (Auto) 0.7 x10^3/uL (0.0-1.1) Eosinophils # (Auto) 0.7 x10^3/uL (0.0-0.7) Basophils # (Auto) 0.1 x10^3/uL (0.0-0.2) Sodium Level 141 mmol/L (136-145) Potassium Level 3.5 mmol/L (3.5-5.1) Chloride Level 103 mmol/L (98-107) Carbon Dioxide Level 27 mmol/L (21-32) Anion Gap 11 (6-14) Blood Urea Nitrogen 10 mg/dL (8-26) Creatinine 1.2 mg/dL (0.7-1.3) Estimated GFR (Cockcroft-Gault) 60.0 BUN/Creatinine Ratio 8 (6-20) Glucose Level 100 mg/dL (70-99) H Calcium Level 9.1 mg/dL (8.5-10.1) Total Bilirubin 1.6 mg/dL (0.2-1.0) H Aspartate Amino Transferase (AST) 13 U/L (15-37) L Alanine Aminotransferase (ALT) 21 U/L (16-63) Alkaline Phosphatase 89 U/L (46-116) Troponin I Quantitative < 0.017 ng/mL (0.000-0.055) MS-Tgi-T-Type Natriuretic Peptide 50 pg/mL (0-124) Total Protein 7.3 g/dL (6.4-8.2) Albumin 3.8 g/dL (3.4-5.0) Albumin/Globulin Ratio 1.1 (1.0-1.7) Laboratory Tests 12/08/19 21:50 Laboratory Tests 12/08/19 21:50 EKG EKG [] Radiology/Procedures Radiology/Procedures [] Impressions: AP view was taken of the chest. Comparison is made with a study from October 12. There is mild elevation the right diaphragm. There is minimal linear atelectasis in the right lung base. There are no other infiltrates. There is no definite effusion. IMPRESSION: 1. Mild basilar linear atelectasis without other infiltrates. 2. Elevated right diaphragm. Course & Med Decision Making Course & Med Decision Making Pertinent Labs and Imaging studies reviewed. (See chart for details) [] Dragon Disclaimer Dragon Disclaimer This electronic medical record was generated, in whole or in part, using a voice recognition dictation system. Departure Departure Impression: Primary Impression: Bronchitis Disposition: 01 HOME, SELF-CARE Condition: STABLE Referrals: UNKNOWN PCP NAME (PCP) Patient Instructions: Acute Bronchitis Additional Instructions: Return to the emergency department with any new or concerning symptoms Scripts Albuterol Sulfate (Proventil Hfa) 6.7 Gm Hfa.aer.ad 1 PUFF INH PRN Q6HRS PRN for SHORTNESS OF BREATH, #1 INHALER Prov: JB ELLSWORTH DO 12/08/19 Prednisone (PREDNISONE) 20 Mg Tablet 3 TAB PO DAILY PRN for COUGH for 5 Days, #15 TAB Prov: JB ELLSWORTH DO 12/08/19 JB ELLSWORTH DO Dec 08, 2019 22:01
[2019-12-08 22:10] LABS: BASO # 0.1 x10^3/uL (0.0-0.2); BASO % 1 % (0-3); EOS # 0.7 x10^3/uL (0.0-0.7); EOS % 9 % (0-3); HEMATOCRIT 44.2 % (39.0-53.0); HEMOGLOBIN 15.3 g/dL (13.0-17.5); LYMPH # 1.8 x10^3/uL (1.0-4.8); LYMPH % 26 % (24-48); MEAN CORPUSCULAR HEMOGLOBIN 28 pg (25-35); MEAN CORPUSCULAR HGB CONC 35 g/dL (31-37); MEAN CORPUSCULAR VOLUME 80 fL (79-100); MONO # 0.7 x10^3/uL (0.0-1.1); MONO % 10 % (0-9); NEUT # 3.8 x10^3/uL (1.8-7.7); NEUT % 54 % (31-73); PLATELET COUNT 201 x10^3/uL (140-400); RED BLOOD COUNT 5.54 x10^6/uL (4.30-5.70)
[2019-12-08] MEDS ORDERED: IPRATRPIUM/ALBUTEROL 0.5/2.5MG 3 ML NEBU. NEB ONE (22:15)
[2019-12-08] MEDS ORDERED: predniSONE 20 MG TABLET PO ONE (22:15)
[2019-12-08 22:22] LABS: CALCIUM 9.1 mg/dL (8.5-10.1); CREATININE 1.2 mg/dL (0.7-1.3); POTASSIUM 3.5 mmol/L (3.5-5.1)
[2019-12-08 22:27] LABS: ALBUMIN 3.8 g/dL (3.4-5.0); ALBUMIN/GLOBULIN RATIO 1.1 (1.0-1.7); TOTAL BILIRUBIN 1.6 mg/dL (0.2-1.0); TOTAL PROTEIN 7.3 g/dL (6.4-8.2)
--- NOTE | 2019-12-08 22:31 | RAD ---
AP chest. HISTORY: Cough AP view was taken of the chest. Comparison is made with a study from October 12. There is mild elevation the right diaphragm. There is minimal linear atelectasis in the right lung base. There are no other infiltrates. There is no definite effusion. IMPRESSION: 1. Mild basilar linear atelectasis without other infiltrates. 2. Elevated right diaphragm. Electronically signed by: Vladimir Rosenthal MD (12/08/2019 10:28 PM) [id number]
[2019-12-08] MEDS ORDERED: PRED20TA PO (22:40)
[2019-12-08] MEDS ORDERED: PROVENTIL HFA6.7 G2 INH (22:40)
[2019-12-08 22:44] VITALS: BP 134/89
--- NOTE | 2019-12-08 23:09 | EKG ---
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
== END 2019-12-08 22:55 | disposition home or self-care (01) ==
LOC: ER 21:28
DX: J45.909 Unspecified asthma, uncomplicated (principal); I10 Essential (primary) hypertension; E11.9 Type 2 diabetes mellitus without complications; Z91.041 Radiographic dye allergy status
CPT/HCPCS: 36415; 71045; 80053; 83880; 84484; 85025; 93005; 94640; 99285; J7512

== ENCOUNTER 2020-02-11 10:27 | Emergency (ER) | payer OTHER ==
[~2020-02-11] VITALS: Ht 170.2 cm; Wt 72.7 kg
[~2020-02-11 10:27] MED LIST changes: +PROVENTIL HFA6.7 G2 INH
[2020-02-11 10:40] VITALS: BP 127/80
--- NOTE | 2020-02-11 11:26 | RAD ---
EXAM: CHEST AP ONLY 02/11/2020 11:01 AM CLINICAL INDICATION:Chest pain COMPARISON:12/08/2019 TECHNIQUE:AP chest radiograph FINDINGS:The cardiomediastinal silhouette is unchanged. Lungs are adequately expanded. No consolidation, pleural effusion, or pneumothorax. No acute osseous abnormality. IMPRESSION:No acute cardiopulmonary abnormality Electronically signed by: Jolynn Huizar MD (02/11/2020 11:23 AM) [id number]
[2020-02-11] MEDS ORDERED: DIPH25CA23 PO (12:38)
[2020-02-11] MEDS ORDERED: HYDR4CRE3 TP (12:38)
[2020-02-11] MEDS ORDERED: VENTOLIN HFA18 GM INH (12:39)
--- NOTE | 2020-02-11 12:39 | PHYS DOC ---
Past Medical History Past Medical History: Asthma, COPD, Diabetes-Type II, Hypertension Past Surgical History: No Surgical History, Other Additional Past Surgical Histo: PCI Smoking Status: Never Smoker Alcohol Use: Occasionally Drug Use: None General Adult EDM: Chief Complaint: SORE THROAT HPI: HPI: 69-year-old male past medical history significant for asthma, hypertension, hyperlipidemia, [id number] diabetes with occasional chewing tobacco, presents to the ED with complaints of pruritic erythematous rash started around the front of his neck and has extended around his posterior neck for the past 5 days. Tried a topical cream that made the itching worse, is unclear what his friend gave him. No prior history of allergic reactions, angioedema or anaphylaxis. Patient is not employed and does not recall any new medications, lotions, detergents, perfumes or food sources. Does have a history of asthma and is requesting a refill of his inhaler but currently denies any active shortness of breath. Has a primary care physician but cannot recall his name. Review of systems: Denies associated fever, chills, cough, dyspnea, hemoptysis, chest pain or pressure, nausea, vomiting, diaphoresis, abdominal or back pain, wheezing, orthopnea, angioedema, mucous membrane involvement of rash, changes in speech or drooling. Review of Systems: Review of Systems: Constitutional: Denies fever or chills. [] Eyes: Denies change in visual acuity. [] HENT: Denies nasal congestion or sore throat. [] Respiratory: Denies cough or shortness of breath. [] Cardiovascular: Denies chest pain or edema. [] GI: Denies abdominal pain, nausea, vomiting, bloody stools or diarrhea. [] : Denies dysuria. [] Musculoskeletal: Denies back pain or joint pain. [] Integument: Denies rash. [] Neurologic: Denies headache, focal weakness or sensory changes. [] Endocrine: Denies polyuria or polydipsia. [] Lymphatic: Denies swollen glands. [] Psychiatric: Denies depression or anxiety. [] Allergies: Allergies: Allergies Coded Allergies Type Severity Reaction Last Updated Verified Iodinated Contrast Media Allergy Intermediate 04/24/18 Yes Physical Exam: PE: Constitutional: Well developed, well nourished, no acute distress, non-toxic appearance. [] HENT: Normocephalic, atraumatic, bilateral external ears normal, oropharynx moist/patent, no oral exudates, nose normal, no rash in mucous membranes, no angioedema, no drooling, trismus or speech changes Eyes: PERRLA, EOMI, conjunctiva normal, no discharge. [] Neck: Normal range of motion, no tenderness, supple, no stridor. [] Cardiovascular:Heart rate regular rhythm, no murmur [] Lungs & Thorax: Bilateral breath sounds clear to auscultation [] Abdomen: Bowel sounds normal, soft, no tenderness, no masses, no pulsatile masses. [] Skin: Warm, dry, no erythema, raised uriticaria over anterior and posterior neck, no increased warmth or obvious erythema (dark skinned) Back: No tenderness, no CVA tenderness. [] Extremities: No tenderness, no cyanosis, no clubbing, ROM intact, no edema. [] Neurologic: Alert and oriented X 3, normal motor function, normal sensory function, no focal deficits noted. [] Psychologic: Affect normal, judgement normal, mood normal. [] Current Patient Data: Vital Signs: Vital Signs Date Time Temp Pulse Resp B/P (MAP) Pulse Ox O2 Delivery O2 Flow Rate FiO2 02/11/20 10:40 98.3 101 14 127/80 (96) 99 Room Air 98.3 EKG: EKG: [] Radiology/Procedures: Radiology/Procedures: IMAGING REPORT Signed PATIENT: BILL KIRBY ACCOUNT: [id number] : 1950 LOCATION: ER AGE: 69 SEX: M EXAM STATUS: REG ER ORD. PHYSICIAN: OBED BILL DO REASON: cp PROCEDURE: CHEST AP ONLY EXAM: CHEST AP ONLY 02/11/2020 11:01 AM CLINICAL INDICATION:Chest pain COMPARISON:12/08/2019 TECHNIQUE:AP chest radiograph FINDINGS:The cardiomediastinal silhouette is unchanged. Lungs are adequately expanded. No consolidation, pleural effusion, or pneumothorax. No acute osseous abnormality. IMPRESSION:No acute cardiopulmonary abnormality Electronically signed by: Jolynn Huizar MD (02/11/2020 11:23 AM) [id number] DICTATED and SIGNED BY: JOLYNN HUIZAR MD DATE: 02/11/20 112 Impression: Concern for acute allergic reaction, unclear source. Will prescribe topical hydrocortisone cream and Benadryl. Will prescribe albuterol per med refill request. Life-threatening processes including angioedema and anaphylaxis are considered very low suspicion. Patient is talking in full sentences. History and physical were obtained using a xray tech. Strict ED return precautions were given for life-threatening processes. Encourage PMD follow-up in 24 to 48 hours. All patient's questions were answered and he was stable at time of discharge. Course & Med Decision Making: Course & Med Decision Making Pertinent Labs and Imaging studies reviewed. (See chart for details) [] Dragon Disclaimer: Dragon Disclaimer: This electronic medical record was generated, in whole or in part, using a voice recognition dictation system. Departure Departure Impression: Primary Impression: Allergic reaction Additional Impression: Encounter for medication refill Disposition: HOME, SELF-CARE Referrals: UNKNOWN PCP NAME (PCP) Patient Instructions: Rash Scripts Albuterol Sulfate (VENTOLIN HFA INHALER) 18 Gm Hfa.aer.ad 2 PUFF INH QID for FOR ASTHMA, #1 INHALER 0 Refills Prov: OBED BILL DO 02/11/20 Diphenhydramine Hcl (DIPHENHYDRAMINE HCL) 25 Mg Capsule 25 MG PO Q6HRS PRN for ITCHING, #20 CAP Prov: OBED BILL DO 02/11/20 Hydrocortisone/Pramoxine (Hydrocort-Pramoxine 2.5%-1% cm) 4 Gm Cream.appl 1 NAOMIE TP BID for 10 Days, #30 GM 0 Refills Prov: OBED BILL DO 02/11/20 Justicifation of Admission Dx: Justifications for Admission: Justification of Admission Dx: N/A OBED BILL DO Feb 11, 2020 12:39
== END 2020-02-11 12:52 | disposition home or self-care (01) ==
LOC: ER 10:27
DX: T78.40XA Allergy, unspecified, initial encounter (principal); Z76.0 Encounter for issue of repeat prescription; J44.9 Chronic obstructive pulmonary disease, unspecified; E11.9 Type 2 diabetes mellitus without complications; I10 Essential (primary) hypertension; E78.5 Hyperlipidemia, unspecified; F17.220 Nicotine dependence, chewing tobacco, uncomplicated; Z91.041 Radiographic dye allergy status
CPT/HCPCS: 71045; 99283

== ENCOUNTER 2021-03-27 13:48 | Emergency (ER) | payer OTHER ==
[~2021-03-27] VITALS: Ht 182.9 cm; Wt 90.9 kg
[~2021-03-27 13:48] MED LIST changes: +AMLO-187 PO; -AMLO10TA8 PO; +DIPH25CA23 PO; +HYDR4CRE3 TP; +VENTOLIN HFA18 GM INH
[2021-03-27 16:28] VITALS: BP 172/79
[2021-03-27] MEDS ORDERED: ONDANSETRON PF 4 MG/2 ML VIAL. IVP ONE (17:15)
[2021-03-27] MEDS ORDERED: fentaNYL PF VIAL 100 MCG/2 ML VIAL IVP ONE (17:15)
[2021-03-27] MEDS ORDERED: IV NORMAL SALINE 1000ML BAG 1,000 ML IV ONE (17:15)
[2021-03-27 17:25] LABS: BILIRUBIN,URINE NEGATIVE (NEG); CLARITY,URINE CLEAR; COLOR,URINE YELLOW; NITRITE,URINE NEGATIVE (NEG); PH,URINE 7.5 (<5.0-8.0); PROTEIN,URINE NEGATIVE (NEG-TRACE)
[2021-03-27 17:25] LABS: BASO # 0.1 x10^3/uL (0.0-0.2); BASO % 1 % (0-3); EOS # 0.2 x10^3/uL (0.0-0.7); EOS % 4 % (0-3); HEMATOCRIT 39.6 % (39.0-53.0); HEMOGLOBIN 13.3 g/dL (13.0-17.5); LYMPH # 1.1 x10^3/uL (1.0-4.8); LYMPH % 20 % (24-48); MEAN CORPUSCULAR HEMOGLOBIN 27 pg (25-35); MEAN CORPUSCULAR HGB CONC 34 g/dL (31-37); MEAN CORPUSCULAR VOLUME 81 fL (79-100); MONO # 0.5 x10^3/uL (0.0-1.1); MONO % 9 % (0-9); NEUT # 3.7 x10^3/uL (1.8-7.7); NEUT % 66 % (31-73); PLATELET COUNT 184 x10^3/uL (140-400); RED CELL DISTRIBUTION WIDTH 14.2 % (11.5-14.5); WHITE BLOOD COUNT 5.7 x10^3/uL (4.0-11.0)
[2021-03-27 17:37] LABS: CALCIUM 9.2 mg/dL (8.5-10.1); CREATININE 1.1 mg/dL (0.7-1.3); GFR 66.2; POTASSIUM 3.7 mmol/L (3.5-5.1)
[2021-03-27 17:37] LABS: BACTERIA,URINE 0 /HPF (0-FEW); RBC,URINE 0 /HPF (0-2); WBC,URINE 0 /HPF (0-4)
[2021-03-27 17:43] LABS: ALBUMIN 3.9 g/dL (3.4-5.0); ALBUMIN/GLOBULIN RATIO 1.1 (1.0-1.7); TOTAL BILIRUBIN 1.1 mg/dL (0.2-1.0); TOTAL PROTEIN 7.6 g/dL (6.4-8.2)
[2021-03-27] MEDS ORDERED: IOHEXOL 300 MG/ML 100ML VIAL. IV ONE (18:00)
[2021-03-27] MEDS ORDERED: CONTRAST GIVEN. MC PRN (18:00)
--- NOTE | 2021-03-27 18:30 | RAD ---
CT abdomen pelvis with contrast. HISTORY: Abdominal pain CT abdomen pelvis was done using 75 mL Omnipaque 300 contrast. There are small bilateral effusions. T here is mild atelectasis in the lung bases without other infiltrates. There is a small cyst in the le ft liver. Liver is otherwise normal in appearance. Spleen is unremarkable. Adrenal glands are normal. Pancreatic lesion is not identified. There is a duodenal diverticulum. There is no free air or ascit es. There is no bowel obstruction. There is no renal mass or hydronephrosis. There is no periaortic a denopathy. Appendix is normal extending cephalad to the margin of the liver. There is no calcified ga llstone or gallbladder wall thickening. IMPRESSION: 1. Small bilateral effusions. 2. No abdominal or pelvic mass noted. 3. Normal appendix. 4. No bowel obstruction or other acute finding in the abdomen. PQRS Compliance Statement: One or more of the following individualized dose reduction techniques were utilized for this examinat ion: 1. Automated exposure control 2. Adjustment of the mA and/or kV according to patient size 3. Use of iterative reconstruction technique Electronically signed by: Vladimir Rosenthal MD (03/27/2021 6:27 PM) [facility] [place]
--- NOTE | 2021-03-27 19:58 | RAD ---
AP chest. HISTORY: Pleural effusions noted on abdominal CT AP view was taken of the chest. Pleural effusions noted on the CT abdomen are poorly visualized on th e chest x-ray. Heart is upper normal in size. The aorta is mildly tortuous. There is mild basilar ate lectasis without other infiltrates. IMPRESSION: 1. Small pleural effusions noted at CT abdomen poorly seen on the chest x-ray. 2. Mild basilar atelectasis without other infiltrates. Electronically signed by: Vladimir Rosenthal MD (03/27/2021 7:56 PM) [facility]
--- NOTE | 2021-03-27 20:59 | PHYS DOC ---
Past Medical History Past Medical History: Asthma, COPD, Diabetes-Type II, Hypertension (KENNY MAGALLON APRN) Past Surgical History: Other Additional Past Surgical Histo: PCI (KENNY MAGALLON APRN) Smoking Status: Never Smoker Alcohol Use: None Drug Use: None (KENNY MAGALLON APRN) General Adult EDM: Chief Complaint: ABDOMINAL PAIN HPI: HPI: Patient is a 70 year old male presents to the emergency department chief complaint of abdominal pain with nausea and vomiting with burning with urination for the past 2 months. Patient states he has been worked up by his primary care physician for this. States he was told he has irritable bowel syndrome and started on the medication. Patient states the medication does not seem to be helping much and has come back for a second opinion. Patient denies chest pains, chest congestion, nasal congestion, recent fever or chills. Patient denies visual disturbances. Denies constipation or diarrhea today. Denies seeing blood in his stool or blood in his urine. Patient denies allergies to medications. Patient states he does not smoke cigarettes, does not drink alcohol, does not use illicit drugs. Patient reported his last coronavirus vaccination 3 months ago. (KENNY MAGALLON APRN) Review of Systems: Review of Systems: 14 body systems of review of systems have been reviewed. See HPI for pertinent positives and negative responses, otherwise all other systems are negative, nonpertinent or noncontributory. Constitutional: Negative except as outlined in HPI above. Skin: Negative except as outlined in HPI above. Eyes: Negative except as outlined in HPI above. HENT: Negative except as outlined in HPI above. Respiratory: Negative except as outlined in HPI above. Cardiovascular: Negative except as outlined in HPI above. GI: Negative except as outlined in HPI above. : Negative except as outlined in HPI above. Musculoskeletal: Negative except as outlined in HPI above. Integument: Negative except as outlined in HPI above. Neurologic: Negative except as outlined in HPI above. Endocrine: Negative except as outlined in HPI above. Lymphatic: Negative except as outlined in HPI above. Psychiatric: Negative except as outlined in HPI above. (KENNY MAGALLON APRN) Heart Score: C/O Chest Pain: No Risk Factors: Risk Factors: DM, Current or recent (<one month) smoker, HTN, HLP, family history of CAD, obesity. Risk Scores: Score 0 - 3: 2.5% MACE over next 6 weeks - Discharge Home Score 4 - 6: 20.3% MACE over next 6 weeks - Admit for Clinical Observation Score 7 - 10: 72.7% MACE over next 6 weeks - Early Invasive Strategies (KENNY MAGALLON APRN) Current Medications: Current Medications Medications (Trade) Dose Ordered Sig/Bella Start Time Stop Time Status Last Admin Dose Admin Fentanyl Citrate (Fentanyl 2ml Vial) 75 mcg 1X ONCE 03/27/21 17:15 03/27/21 17:16 DC 03/27/21 17:54 75 MCG Info (CONTRAST GIVEN -- Rx MONITORING) 1 each PRN DAILY PRN 03/27/21 18:00 03/29/21 17:59 Iohexol (Omnipaque 300 Mg/ml) 75 ml 1X ONCE 03/27/21 18:00 03/27/21 18:01 DC 03/27/21 18:04 75 ML Ondansetron HCl (Zofran) 4 mg 1X ONCE 03/27/21 17:15 03/27/21 17:16 DC 03/27/21 17:53 4 MG Sodium Chloride 1,000 ml @ 1,000 mls/hr 1X ONCE 03/27/21 17:15 03/27/21 18:14 DC 03/27/21 17:50 1,000 MLS/HR (KENNY MAGALLON APRN) Allergies: Allergies: Allergies Coded Allergies Type Severity Reaction Last Updated Verified No Known Drug Allergies 03/27/21 No (KENNY MAGALLON APRN) Physical Exam: PE: Constitutional: Well developed, well nourished, no acute distress, non-toxic appearance. 70-year-old male in no apparent distress. HENT: Normocephalic, atraumatic. Eyes: Conjunctiva normal, no discharge. Neck: Normal range of motion, no stridor. Cardiovascular: No cyanosis appreciated, distal cap refill less than 2 seconds. Lungs & Thorax: Patient is in no respiratory distress, no audible adventitious lung sounds appreciated. Abdomen: Bowel sounds normal, soft, no tenderness, no masses, no pulsatile masses. Skin: Warm, dry, no erythema, no rash. Back: No tenderness, no deformities. Extremities: No tenderness, no cyanosis, no clubbing, ROM intact, no edema. Neurologic: Alert and oriented X 3, normal motor function, normal sensory function, no focal deficits noted. Psychologic: Affect normal, judgement normal, mood normal. (KENNY MAGALLON APRN) Current Patient Data: Labs: Laboratory Tests Test 03/27/21 16:43 03/27/21 16:50 White Blood Count 5.7 x10^3/uL Red Blood Count 4.90 x10^6/uL Hemoglobin 13.3 g/dL Hematocrit 39.6 % Mean Corpuscular Volume 81 fL Mean Corpuscular Hemoglobin 27 pg Mean Corpuscular Hemoglobin Concent 34 g/dL Red Cell Distribution Width 14.2 % Platelet Count 184 x10^3/uL Neutrophils (%) (Auto) 66 % Lymphocytes (%) (Auto) 20 % Monocytes (%) (Auto) 9 % Eosinophils (%) (Auto) 4 % Basophils (%) (Auto) 1 % Neutrophils # (Auto) 3.7 x10^3/uL Lymphocytes # (Auto) 1.1 x10^3/uL Monocytes # (Auto) 0.5 x10^3/uL Eosinophils # (Auto) 0.2 x10^3/uL Basophils # (Auto) 0.1 x10^3/uL Sodium Level 144 mmol/L Potassium Level 3.7 mmol/L Chloride Level 105 mmol/L Carbon Dioxide Level 28 mmol/L Anion Gap 11 Blood Urea Nitrogen 7 mg/dL Creatinine 1.1 mg/dL Estimated GFR (Cockcroft-Gault) 66.2 BUN/Creatinine Ratio 6 Glucose Level 72 mg/dL Calcium Level 9.2 mg/dL Total Bilirubin 1.1 mg/dL Aspartate Amino Transf (AST/SGOT) 14 U/L Alanine Aminotransferase (ALT/SGPT) 20 U/L Alkaline Phosphatase 80 U/L Total Protein 7.6 g/dL Albumin 3.9 g/dL Albumin/Globulin Ratio 1.1 Lipase 129 U/L Urine Collection Type Unknown Urine Color Yellow Urine Clarity Clear Urine pH 7.5 Urine Specific [place] 1.010 Urine Protein Negative mg/dL Urine Glucose (UA) Negative mg/dL Urine Ketones (Stick) Negative mg/dL Urine Blood Negative Urine Nitrite Negative Urine Bilirubin Negative Urine Urobilinogen Dipstick 1.0 mg/dL Urine Leukocyte Esterase Negative Urine RBC 0 /HPF Urine WBC 0 /HPF Urine Bacteria 0 /HPF Current Medications Medications (Trade) Dose Ordered Sig/Bella Route PRN Reason Start Time Stop Time Status Last Admin Dose Admin Sodium Chloride 1,000 ml @ 1,000 mls/hr 1X ONCE IV 03/27/21 17:15 03/27/21 18:14 DC 03/27/21 17:50 Ondansetron HCl (Zofran) 4 mg 1X ONCE IVP 03/27/21 17:15 03/27/21 17:16 DC 03/27/21 17:53 Fentanyl Citrate (Fentanyl 2ml Vial) 75 mcg 1X ONCE IVP 03/27/21 17:15 03/27/21 17:16 DC 03/27/21 17:54 Iohexol (Omnipaque 300 Mg/ml) 75 ml 1X ONCE IV 03/27/21 18:00 03/27/21 18:01 DC 03/27/21 18:04 Info (CONTRAST GIVEN -- Rx MONITORING) 1 each PRN DAILY PRN MC SEE COMMENTS 03/27/21 18:00 03/27/21 21:22 DC Laboratory Tests Test 03/27/21 16:43 03/27/21 16:50 White Blood Count 5.7 x10^3/uL (4.0-11.0) Red Blood Count 4.90 x10^6/uL (4.30-5.70) Hemoglobin 13.3 g/dL (13.0-17.5) Hematocrit 39.6 % (39.0-53.0) Mean Corpuscular Volume 81 fL (79-100) Mean Corpuscular Hemoglobin 27 pg (25-35) Mean Corpuscular Hemoglobin Concent 34 g/dL (31-37) Red Cell Distribution Width 14.2 % (11.5-14.5) Platelet Count 184 x10^3/uL (140-400) Neutrophils (%) (Auto) 66 % (31-73) Lymphocytes (%) (Auto) 20 % (24-48) L Monocytes (%) (Auto) 9 % (0-9) Eosinophils (%) (Auto) 4 % (0-3) H Basophils (%) (Auto) 1 % (0-3) Neutrophils # (Auto) 3.7 x10^3/uL (1.8-7.7) Lymphocytes # (Auto) 1.1 x10^3/uL (1.0-4.8) Monocytes # (Auto) 0.5 x10^3/uL (0.0-1.1) Eosinophils # (Auto) 0.2 x10^3/uL (0.0-0.7) Basophils # (Auto) 0.1 x10^3/uL (0.0-0.2) Sodium Level 144 mmol/L (136-145) Potassium Level 3.7 mmol/L (3.5-5.1) Chloride Level 105 mmol/L (98-107) Carbon Dioxide Level 28 mmol/L (21-32) Anion Gap 11 (6-14) Blood Urea Nitrogen 7 mg/dL (8-26) L Creatinine 1.1 mg/dL (0.7-1.3) Estimated GFR (Cockcroft-Gault) 66.2 BUN/Creatinine Ratio 6 (6-20) Glucose Level 72 mg/dL (70-99) Calcium Level 9.2 mg/dL (8.5-10.1) Total Bilirubin 1.1 mg/dL (0.2-1.0) H Aspartate Amino Transferase (AST) 14 U/L (15-37) L Alanine Aminotransferase (ALT) 20 U/L (16-63) Alkaline Phosphatase 80 U/L (46-116) Total Protein 7.6 g/dL (6.4-8.2) Albumin 3.9 g/dL (3.4-5.0) Albumin/Globulin Ratio 1.1 (1.0-1.7) Lipase 129 U/L (73-393) Urine Collection Type Unknown Urine Color Yellow Urine Clarity Clear Urine pH 7.5 (<5.0-8.0) Urine Specific [place] 1.010 (1.000-1.030) Urine Protein Negative mg/dL (NEG-TRACE) Urine Glucose (UA) Negative mg/dL (NEG) Urine Ketones (Stick) Negative mg/dL (NEG) Urine Blood Negative (NEG) Urine Nitrite Negative (NEG) Urine Bilirubin Negative (NEG) Urine Urobilinogen Dipstick 1.0 mg/dL (0.2 mg/dL) Urine Leukocyte Esterase Negative (NEG) Urine RBC 0 /HPF (0-2) Urine WBC 0 /HPF (0-4) Urine Bacteria 0 /HPF (0-FEW) Laboratory Tests 03/27/21 16:43 Laboratory Tests 03/27/21 16:43 Vital Signs: Vital Signs Date Time Temp Pulse Resp B/P (MAP) Pulse Ox O2 Delivery O2 Flow Rate FiO2 03/27/21 17:54 16 97 Room Air 03/27/21 16:28 98.0 54 172/79 (96) 98.0 (KENNY MAGALLON APRN) EKG: EKG: EKG performed at 1631 by ED nursing staff shows a sinus bradycardia without other ectopy, CA interval 0.184, QTc interval 0.408, no acute STEMI, no ACS, no acute ischemia appreciated, EKG interpreted by ED attending physician Dr. Arcos. (KENNY MAGALLON APRN) Radiology/Procedures: Radiology/Procedures: PATIENT: BILL KIRBY ACCOUNT: [id number] : 1950 LOCATION: ER AGE: 70 SEX: M EXAM STATUS: REG ER ORD. PHYSICIAN: KENNY MAGALLON APRN REASON: abnormal abdominal ct seen lung effusions PROCEDURE: CHEST AP ONLY AP chest. HISTORY: Pleural effusions noted on abdominal CT AP view was taken of the chest. Pleural effusions noted on the CT abdomen are poorly visualized on the chest x-ray. Heart is upper normal in size. The aorta is mildly tortuous. There is mild basilar atelectasis without other infiltrates. IMPRESSION: 1. Small pleural effusions noted at CT abdomen poorly seen on the chest x-ray. 2. Mild basilar atelectasis without other infiltrates. Electronically signed by: Vladimir Rosenthal MD (03/27/2021 7:56 PM) [facility] DICTATED and SIGNED BY: VLADIMIR ROSENTHAL MD DATE: 03/27/[id number] 0 PATIENT: BILL KIRYB ACCOUNT: [id number] : 1950 LOCATION: ER AGE: 70 SEX: M EXAM STATUS: REG ER ORD. PHYSICIAN: KENNY MAGALLON APRN REASON: ABDOMEN PAIN PROCEDURE: CT ABD PELV W/ IV CONTRST ONLY CT abdomen pelvis with contrast. HISTORY: Abdominal pain CT abdomen pelvis was done using 75 mL Omnipaque 300 contrast. There are small bilateral effusions. There is mild atelectasis in the lung bases without other infiltrates. There is a small cyst in the left liver. Liver is otherwise normal in appearance. Spleen is unremarkable. Adrenal glands are normal. Pancreatic lesion is not identified. There is a duodenal diverticulum. There is no free air or ascites. There is no bowel obstruction. There is no renal mass or hyd ronephrosis. There is no periaortic adenopathy. Appendix is normal extending cephalad to the margin of the liver. There is no calcified gallstone or gallbladder wall thickening. IMPRESSION: 1. Small bilateral effusions. 2. No abdominal or pelvic mass noted. 3. Normal appendix. 4. No bowel obstruction or other acute finding in the abdomen. PQRS Compliance Statement: One or more of the following individualized dose reduction techniques were utilized for this examination: 1. Automated exposure control 2. Adjustment of the mA and/or kV according to patient size 3. Use of iterative reconstruction technique Electronically signed by: Vladimir Rosenthal MD (03/27/2021 6:27 PM) [facility] DICTATED and SIGNED BY: VLADIMIR ROSENTHAL MD DATE: 03/27/21 [id number] (KENNY MAGALLON APRN) Course & Med Decision Making: Course & Med Decision Making Pertinent Labs and Imaging studies reviewed. (See chart for details) 7-year-old male, presents to the emergency department concerns of ongoing irritable bowel syndrome type symptoms and is requesting a reevaluation. Patient's vital signs within normal limits, patient's physical examination unremarkable, patient had no pain to palpation of abdomen. Related to patient's age and chief complaint will order abdominal work-up. EKG. CT imaging of abdomen pelvis concerning for lower lobe pneumonia, will order x- ray of chest. The patient's urine was not infected, the patient's lab work unremarkable, no concerning findings. Chest x-ray unremarkable, patient's labs unremarkable, discussed with patient findings, discussed with patient strict follow-up with primary care this Tuesday for ongoing irritable bowel syndrome problems. Discussed with the patient all findings and diagnostic testing as well as the need to follow-up with their primary care provider for further evaluation and treatment or return to the ED if any new or worsening symptoms. Strict return precautions were also discussed at length, the patient voiced understanding and agreement with the discharge planning. The patient was nontoxic in appearance, in no apparent distress, and hemodynamically stable at the time of disposition. (KENNY MAGALLON APRN) Randyon Disclaimer: Haily Disclaimer: This electronic medical record was generated, in whole or in part, using a voice recognition dictation system. (KENNY MAGALLON APRN) Departure Departure Impression: Primary Impression: Abdominal pain Qualified Codes: R10.84 - Generalized abdominal pain Disposition: HOME / SELF CARE / HOMELESS Condition: GOOD Referrals: NON,STAFF (PCP) Patient Instructions: Abdominal Pain Additional Instructions: You were seen today in the emergency department for abdominal pain. An extensive abdominal work-up was completed in the emergency department today, there were no concerning findings that would require immediate hospitalization or immediate attention by a specialist. Your lab work was within normal limits, the x-ray of your chest did not show any infectious process or pneumonias. This does not mean that nothing is wrong, please follow-up with your primary care physician for ongoing abdominal pain. Thank you for visiting our Emergency Department. It was a pleasure taking care of you today in the emergency department and we appreciate you trusting us with your care. If any additional problems come up don't hesitate to return to visit us. Please follow up with your primary care provider so they can plan additional care if needed and know about the problem that you had. If symptoms worsen come back to the Emergency Department. Any concerning symptoms that start such as chest pain, shortness of air, weakness or numbness on one side of the body, running high fevers or any other concerning symptoms return to the ER. EMERGENCY DEPARTMENT GENERAL DISCHARGE INSTRUCTIONS Thank you for coming to [facility] Emergency Department (ED) today and trusting us with you care. We trust that you had a positive experience in our Emergency Department. If you wish to speak to the department management, you may call the Director at [phone]. YOUR FOLLOW UP INSTRUCTIONS ARE FOLLOWS: 1. Do you have a private Doctor? If you do not have a private doctor, please ask for a resource list of physicians or clinics that may be able to assist you with follow up care. 2. The Emergency Physicain has interpreted your x-rays. The X-Ray specialist will also review them. If there is a change in the findings, you will be notified in 48 hours when at all possible. 3. A lab test or culture has been done, your results will be reviewed and you will be notified if you need a change in treatment. ADDITIONAL INSTRUCTIONS AND INFORMATION: 1. Your care today has been supervised by a physician who is specially trained in emergency care. Many problems require more than one evaluation for a complete diagnosis and treatment. We recommend that you schedule your follow up appointment as recommended to ensure complete treatment of you illness or injury. If you are unable to obtain follow up care and continue to have a problem, or if your condition worsens, we recommend that you return to the ED. 2. We are not able to safely determine your condition over the phone nor are we able to give sound medical advice over the phone. For these safety reasons, if you call for medical advice we will ask you to come to the ED for further evaluation. 3. If you have any questions regarding these discharge instructions please call the ED at [phone]. SAFETY INFORMATION: In the interest of safety, wellness, and injury prevention; we encourage you to wear your sealbelt, if you smoke; quite smoking, and we encourage family to use a protective helmet for bicycling and other sporting events that present an increased risk for head injury. IF YOUR SYMPTOMS WORSEN OR NEW SYMPTOMS DEVELOP, OR YOU HAVE CONCERNS ABOUT YOUR CONDITION; OR IF YOUR CONDITION WORSENS WHILE YOU ARE WAITING FOR YOUR FOLLOW UP APPOINTMENT; EITHER CONTACT YOUR PRIMARY CARE DOCTOR, THE PHYSICIAN WHOSE NAME AND NUMBER YOU WERE GIVEN, OR RETURN TO THE ED IMMEDIATELY. Attending Signature Attending Signature I have reviewed the PA/CONSULTING SOLUTION DIRECTOR's note and plan of care. I was available for consultation as needed during the patient's visit in the emergency department. I agree with the clinical impression, plan, and disposition. (KENNY IVAN DO) KENNY MAGALLON APRN Mar 27, 2021 20:59 KENNY IVAN DO Mar 28, 2021 18:26
--- NOTE | 2021-03-28 02:39 | EKG ---
[facility] [address] [place] [id number] Test Date: 2021-03-27 Test Time: 16:31:35 Pat Name: BILL KIRBY Department: Room: Gender: M Administrative Law Judge: : 1950 Requested By: KENNY MAGALLON Order Number: [id number] Reading MD: Measurements Intervals [place] Rate: 55 P: 36 MA: 184 QRS: -15 QRSD: 92 T: 8 QT: 424 QTc: 408 Interpretive Statements SINUS RHYTHM LEFTWARD AXIS OTHERWISE NORMAL ECG RI6.02 No previous ECG available for comparison
== END 2021-03-27 21:15 | disposition home or self-care (01) ==
LOC: ER 13:48
DX: R10.84 Generalized abdominal pain (principal); R11.2 Nausea with vomiting, unspecified; R30.0 Dysuria; J44.9 Chronic obstructive pulmonary disease, unspecified; E11.9 Type 2 diabetes mellitus without complications; I10 Essential (primary) hypertension
CPT/HCPCS: 36415; 71045; 74177; 80053; 81001; 83690; 85025; 93005; 96361; 96374; 96375; 99285; J2405; J3010; J7030; Q9967